=== PATIENT | female | born 1985 | race Caucasian/White ===

== ENCOUNTER → 2018-02-02 16:04 | Outpatient (CLI) | payer OTHER, SELFPAY ==
[2018-02-02 16:36] LABS: Basophils % 0.2 % (0.1-2.0); Eosinophils % 0.2 % (0.1-12.0); Hematocrit 40.7 % (37.0-47.0); Hemoglobin 13.8 g/dL (12.2-16.2); Lymphocytes # 2.4 K/mm3 (0.7-4.5); Mean Corpuscular Hemoglobin 32.7 pg (27.0-31.2); Mean Corpuscular Volume 96.3 fl (81-99); Mean Platelet Volume 7.9 fl (7.4-10.4); Monocytes # 0.3 K/mm3 (0.1-1.0); Monocytes % 3.6 % (1.7-9.3); Neutrophils # 6.3 K/mm3 (1.8-7.8); Platelet Count 231 K/mm3 (142-424); Red Blood Count 4.23 M/mm3 (4.20-5.40); Red Cell Distribution Width 12.2 % (11.5-17.5)
[2018-02-04 15:56] LABS: Hepatitis B Surface Antigen Negative (Negative); Hepatitis C Antibody <0.1 s/co ratio (0.0-0.9); Rapid Plasma Reagin Ab Titer Non Reactive (NonRea<1:1); Rubella Antibodies, IgG 5.74 index (Immune >0.99)
[2018-02-04 15:57] LABS: HIV Screen 4th Generation wRfx Non Reactive (Non Reactive)
== END ==
PROVIDERS: PCP Family Medicine; Visit Provider Obstetrics & Gynecology
DX: Z34.90 Encounter for supervision of normal pregnancy, unspecified, unspecified trimester (principal)
CPT/HCPCS: 36415; 85025; 86592; 86703; 86762; 86850; 87340; 87380; G0432

== ENCOUNTER → 2018-02-08 13:41 | Outpatient (CLI) | payer OTHER, SELFPAY ==
--- NOTE | 2018-02-08 13:43 | US_ITS ---
US OB transvaginal HISTORY: ITS.REASON: US OB- Dates ORDERING PHYSICIAN: Racheal Smith MD PATIENT AGE: 33 years FINDINGS: There is a single live intrauterine gestation present with an average ultrasound age of 12 weeks 5 days. Estimated due date is 08/18/2018. [place]-rump length 5.61 cm at 12 weeks 2 days, BPD 13 weeks 0 days, HC 13 weeks 0 days, abdominal circumference 12.5 days, FL 12 weeks 3 days. heart tones are present at 1 60 bpm. No gross anomalies apparent. This does not suffice for anatomy exam. Placenta forming anteriorly with probable Jose Maria Hopkins contraction noted. 1.5 cm right corpus luteum cyst IMPRESSION: Live intrauterine gestation at 12 weeks 5 days. Estimated due date 08/18/2018
== END ==
PROVIDERS: PCP Family Medicine; Visit Provider Obstetrics & Gynecology
DX: O26.841 Uterine size-date discrepancy, first trimester (principal)
CPT/HCPCS: 76830

== ENCOUNTER → 2018-03-31 12:42 | Outpatient (CLI) | payer OTHER, SELFPAY ==
--- NOTE | 2018-03-31 12:43 | US_ITS ---
US OB /maternal detail: INDICATION: ITS.REASON: US OB Complete ORDERING PHYSICIAN: Racheal Smith MD PATIENT AGE: 33 years TECHNIQUE: ultrasound transabdominal scanning. COMPARISON: No previous relevant studies. FINDINGS: Single viable intrauterine gestation. Cephalic position. Placenta: Anterior placenta grade 1. Accessory lobe is noted posteriorly and inferiorly There is average amount fluid. The cervix appears satisfactory. Closed and measuring 4 cm in length. Complete survey performed and was unremarkable on the submitted images as in PACS. No discrete anomalies identified on survey imaging by technologist. Active fetus. Three-vessel cord with satisfactory umbilical cord insertion. 4- chamber heart noted. Survey of brain & ventricles unremarkable. Face and neck survey unremarkable. Diaphragm and chest views unremarkable. Abdomen: Both kidneys noted and unremarkable. Stomach noted and satisfactory. Spine: Survey of the spine satisfactory with no anomalies identified nor imaged. Both arms and legs noted. Amniotic Fluid: Adequate. Maternal adnexa: No significant findings. Measurements: Average ultrasound age 20w0d. Gestational Age 20w0d. Estimated due date by ultrasound age 1008/18/2018. Estimated weight 314 grams. This is 35th percentile based on estimated due date. BPD = 20w2d OFD = 20w5d HC = 19w6d AC = 20w2d FL = 19w3d Heart Rate = 142 Cerebellum = 20w5d Humerus = 20w1d HC/AC is 1.15 (1.09-1.26). CI is 77% (70-86%). FL/BPD is 64%. FL/AC is 20%. IMPRESSION: Single live fetus is type presentation with average ultrasound age of 20 weeks 0 days. No obvious anomalies. All parameters correlate. Anterior placenta with accessory lobe posteriorly
== END ==
PROVIDERS: PCP Family Medicine; Visit Provider Obstetrics & Gynecology
DX: Z36.0 Encounter for antenatal screening for chromosomal anomalies (principal)
CPT/HCPCS: 76811

== ENCOUNTER → 2018-07-15 17:33 | Outpatient (REF) | payer OTHER, SELFPAY | LOC: LAB 17:33 | PROVIDERS: Visit Provider Nurse Practitioner Obstetrics & Gynecology | DX: Z34.90 Encounter for supervision of normal pregnancy, unspecified, unspecified trimester (principal) | CPT/HCPCS: 86403 ==

== ENCOUNTER 2018-08-04 05:29 | Inpatient (IN) ==
[2018-08-04 06:17] LABS: Basophils % 0.2 % (0.1-2.0); Eosinophils % 0.4 % (0.1-12.0); Hematocrit 35.2 % (37.0-47.0); Hemoglobin 11.9 g/dL (12.2-16.2); Lymphocytes # 2.3 K/mm3 (0.7-4.5); Lymphocytes % 24.4 K/mm3 (10-50); Mean Corpuscular HGB Conc 33.8 g/dL (31.8-35.4); Mean Corpuscular Hemoglobin 32.1 pg (27.0-31.2); Mean Corpuscular Volume 94.9 fl (81-99); Mean Platelet Volume 8.7 fl (7.4-10.4); Monocytes # 0.4 K/mm3 (0.1-1.0); Monocytes % 4.2 % (1.7-9.3); Neutrophils # 6.6 K/mm3 (1.8-7.8); Neutrophils % 70.9 % (37.0-80.0); Platelet Count 201 K/mm3 (142-424); Red Blood Count 3.71 M/mm3 (4.20-5.40); Red Cell Distribution Width 13.5 % (11.5-17.5); White Blood Count 9.4 K/mm3 (4.8-10.8)
[2018-08-04 06:30] LABS: Anion Gap 14.7 mEq/L (5-15); Calcium 8.3 mg/dL (8.5-10.1); Potassium 3.7 mmoL/L (3.5-5.1); Uric Acid 3.3 mg/dL (2.6-7.2)
[2018-08-04 06:48] LABS: Activated Partial Thrombo Time 26.4 seconds (23.6-34.0); INR 0.91 (0.9-1.1); Prothrombin Time 9.4 seconds (9.4-11.8)
[2018-08-04 07:28] LABS: Appearance,Urine CLEAR (Clear); Bilirubin,Urine Negative (Negative); Blood, Urine Negative (Negative); Color,Urine YELLOW (Yellow); Glucose,Urine (UA) Negative (Negative); Ketones,Urine Negative (Negative); Leukocyte Esterase,Urine 1+ (Negative); Microscopic, Urine URINE MICROSCOPIC (MICROSCOPIC); Protein,Urine Negative (Negative); Urobilinogen,Urine 0.2 EU/dl (0.2)
[2018-08-04 07:37] LABS: Bacteria,Urine 1+ /lpf
--- NOTE | 2018-08-04 08:08 | Progress Note ---
[facility] Anesthesia Checklist - Patient Identification Patient Identification: Arm Band, Verbal (Name & ) - Structural Data Admitted From: Inpatient Planned Operative Procedure/s: , btl Consent for Planned Operative Procedure(s) Verified: Yes Verified Documents: Surgical Consent, History and Physical - NPO Status Verified Time NPO: 00:00 - Additional verifications Patient : Yes Anesthesia Reactions: No Hx Blood Transfusions: No Blood Transfusion Reaction: No Cephalosporin Allergy: No Previous Colonoscopy: No - Cardiovascular Assessment Heart Sounds: S1 & S2 Pulse Strength: Baseline Pulse Rhythm: Regular Peripheral Edema: No - Airway Assessment C-Spine Mobility Assessed: Yes TMJ Mobility Assessed: Yes Dentition: Good Dentition - Neurological Assessment Level of Consciousness: Awake, Alert, Appropriate Hx Seizures: Yes Numbness or tingling in extremities: No - Anesthesia Plan Anesthesia Risk discussed: Yes Anesthesia Plan: Verified ASA Class: II Anesthesia Type: Spinal [facility] History I have reviewed the patient's past medical history: Yes Medical History: Reports:: Hypertension Denies:: Anxiety, Depression, Diabetes Mellitus Type 1, Hyperlipidemia, Migraine, MRSA Other Surgeries: Yes: Amputation: No Fractures: No - *Social History Smoking Status: Current every day smoker Tobacco Type: cigarettes Alcohol Intake: never Substance Use Type: denies use - Psychiatric History Pschychiatric History:: Denies:: Anxiety, Depression *Family Hx:: Cancer, Thyroid Disorder, Asthma Para: 2
--- NOTE | 2018-08-04 10:13 | Progress Note ---
[facility] Anesthesia Record Part I Intake, IV Amount: 1,900 Estimated blood loss (mL): 600 Urine output (mL): 525 Blood Products used (#): none Blood Pressure: 134/72 SaO2: 100 Pulse Rate: 72 Respiratory Rate: 18 Temperature: 98.3 F Patient is:: Awake, Stable Stable to PACU at:: 10:07
--- NOTE | 2018-08-04 10:14 | Progress Note ---
[facility] Anesthesia Record Part II Discharge Time: 10:37 Destination: Obstetric PACU nurse assessment reviewed?: Yes Patient Condition:: Good Anesthesia Complications:: None
--- NOTE | 2018-08-04 16:30 | Operative Note ---
Date of procedure: 08/04/18 Pre-op Diagnosis:: 1. IUP @ 38 wks 2. Previous CS 3. Gestational hypertension 4. Accessory lobe placenta 5. Tobacco abuse 6. Undesired fertility Post-op Diagnosis:: 1. IUP @ 38 wks 2. Previous CS 3. Gestational hypertension 4. Accessory lobe placenta 5. Tobacco abuse 6. Undesired fertility Procedure performed:: 1. Repeat low transverse c section 2. Bilateral salpingectomy Surgeon:: Racheal Smith MD Account Development Executive(s):: Bernardo Boone MD CHAIN MORTISER OPERATOR:: Aureliano Cameron Anesthesia: spinal Estimated blood loss (mL): 600 Operative findings:: grossly normal fallopian tubes and ovaries bilaterally. Uterus with thin lower segment and modertate bladder adhesions. Operative note:: The patient was taken to the OR and spinal administered without difficulty. She was prepped and draped in normal sterile fashion. A pfannenstiel skin incision was made with the scalpel and carried down to the fascia. The fascia was incised in the midline and sharply dissected off the rectus muscles. The muscles were in the midline and the peritoneum was entered sharply and extended bluntly. The Marcelo-O self retaining retractor was placed in the abdomen and the peritoneal adhesions between the bladder and lower uterine segment were sharply and bluntly dissected, creating a bladder flap. The lower uterine segment was extremely thin with a small visible window. The uterus was incised in the lower uterine segment in a transverse fashion and extended bluntly. Amniotomy was performed and clear fluid noted. The was delivered in controlled fashion, without complication or shoulder dystocia. The infant was vigorous at and handed to awaiting pediatricians for evaluation after cord clamped and cut. The placenta was manually extracted and noted to be intact. The uterus was repaired with 0-vicryl in a running/locked fashion. Both fallopian tubes were excised in totality, using the harmonic scalpel. All pedicles were hemostatic. The peritoneum was closed with 2-0 vicryl in running fashion. The subcutaneous fat was closed with 2-0 vicryl in interrupted fashion. The skin was closed with hector. The patient tolerated the procedure well. Sponge, lap, needle and instrument counts were correct x 2. She was taken to PACU in stable condition. Condition: stable Disposition: PACU Specimens:: bilateral fallopian tubes Complications:: none
[2018-08-05 06:09] LABS: Hematocrit 33.2 % (37.0-47.0)
--- NOTE | 2018-08-05 13:11 | Progress Note ---
Internal Medicine - PN: Subj *Date: 08/05/18 *Time: 13:08 Interval history: POD #1 Repeat LTCS with bilateral salpingectomy No complaints Ambulating, voiding without difficulty tolerating regular diet without N/V Pain control sufficient and lochia appropriate Exam Vital signs and Labs for Last 24 Hours: Temp Pulse Resp BP Pulse Ox 98.7 F 79 20 145/85 H 100 08/04/18 10:58 08/04/18 10:58 08/04/18 12:30 08/04/18 10:58 08/04/18 10:58 Laboratory Results - last 24 hr 08/04/18 09:00: Urine RBC None, Urine WBC None, Ur Squamous Epith Cells 3-5, Urine Bacteria Trace 08/05/18 05:45: Hgb 11.0 L, Hct 33.2 L I & O for Last 24 hours: Intake & Output 08/03/18 08/04/18 08/05/18 08/06/18 11:59 11:59 11:59 11:59 Intake Total 1900 / 1900 Output Total 525 / 525 Balance 1375 / 1375 Weight 190 lb Microbiology Reports for the Last 24 Hours: Microbiology 08/04/18 07:15 Urine,Clean Catch Urine Culture - Preliminary NO GROWTH AFTER 24 HOURS - Constitutional no acute distress - *Routine Respiratory Exam Absent: respiratory distress - *Routine Abdominal Exam Present: soft, tenderness (appropriate for postop condition). Absent: distended - *Routine Exam Comments: fundus firm at umbilicus - *Routine Skin Exam Present: wounds Comments: dressing dry/intact; no drainage from incision or evidence of cellulitis - *Routine Neurological Exam Present: alert, oriented X3. Absent: altered mental status - Routine Psychiatric Exam Absent: depressed, anxious Assessment and Plan (1) Gestational hypertension without significant proteinuria Current visit: No Status: Acute Category: Medical (2) Previous section Current visit: No Status: Chronic Category: Surgical Code(s): Z98.891 - History of uterine scar from previous surgery (3) Delivery by elective section Current visit: Yes Status: Acute Category: Medical Code(s): O82 - Encounter for delivery without indication (4) Unwanted fertility Current visit: Yes Status: Acute Category: Medical Code(s): Z30.09 - Encounter for other general counseling and advice on contraception (5) Status post tubal ligation Current visit: Yes Status: Acute Category: Medical Code(s): Z98.51 - Tubal ligation status (6) Tobacco smoking complicating Current visit: No Status: Acute Category: Medical Code(s): O99.330 - Smoking (tobacco) complicating , unspecified trimester (7) Anemia associated with acute blood loss Current visit: Yes Status: Acute Category: Medical Code(s): D62 - Acute posthemorrhagic anemia - Assessment and plan all Dx Assessment and Plan for all problems:: Routine postop/ care Continue to advance care as tolerated Possible discharge home tomorrow pending status/assessment Continue PNV with FeSO4 Tobacco cessation advised
--- NOTE | 2018-08-05 13:15 | Pharmacy Consult Notes ---
[facility] Pharmacy VTE Monitoring - Patient Demographics Admission date: 08/04/18 Report Date: 08/05/18 Time: 13:14 Allergies/Adverse Reactions: Patient Allergies From Penicillin G Sodium Allergy (Unknown, Uncoded 08/02/18 10:10) Penicillin Allergy (Unknown, Uncoded 08/02/18 10:10) Height: 1.57 m Weight: 86.183 kg Patient Problems: Current Active Problems Status post tubal ligation (Acute) Anemia associated with acute blood loss (Acute) Unwanted fertility (Acute) Delivery by elective section (Acute) - VTE Risk Labs: VTE Related Lab Results Hgb 11.0 g/dL (12.2-16.2) L 08/05/18 05:45 Hct 33.2 % (37.0-47.0) L 08/05/18 05:45 Plt Count 201 K/mm3 (142-424) 08/04/18 05:47 PT 9.4 seconds (9.4-11.8) 08/04/18 05:47 INR 0.91 (0.9-1.1) 08/04/18 05:47 APTT 26.4 seconds (23.6-34.0) 08/04/18 05:47 Fibrinogen 474 mg/dL (204-500) 08/04/18 05:47 BUN 4 mg/dL (7-18) L 08/04/18 05:47 Creatinine 0.44 mg/dL (0.55-1.02) L 08/04/18 05:47 Estimated Creat Clear 245 mL/min (0-300) 08/04/18 05:47 - Prophylaxis VTE Prophylaxis Ordered?: Yes Types of VTE Prophylaxis: IPCS Knee High Location of Applied Device: Bilateral Lower Extremeties
[2018-08-06 07:52] VITALS: BP 134/80
--- NOTE | 2018-08-06 15:17 | Discharge Summary ---
General - General Admission date:: 08/04/18 Discharge date: 08/06/18 HPI HPI: Elective repeat CS with bilateral salpingectomy performed at 38+ weeks due to GHTN /postop course uneventful Progressed to regular diet with normal voiding and ambulation BP stable throughout pp course discharged home on POD #2 Hospital Course Hospital Course: as documented within HPI Objective Vital signs: Temp Pulse Resp BP Pulse Ox 98.0 F 82 17 134/80 98 08/06/18 07:51 08/06/18 07:51 08/06/18 07:51 08/06/18 07:51 08/06/18 07:51 no acute distress - *Routine Respiratory Exam Absent: respiratory distress - *Routine Abdominal Exam Present: soft, tenderness (appropriate for postop status). Absent: distended, guarding - *Routine Extremities Exam Present: edema (1+) - *Routine Skin Exam Present: wounds (dry/intact without cellulitis or drainage) - *Routine Neurological Exam Present: alert, oriented X3 - Routine Psychiatric Exam Present: normal affect. Absent: depressed, anxious DS: Diagnosis - Discharge Diagnosis (1) Gestational hypertension without significant proteinuria Status: Acute (2) Previous section Status: Chronic (3) Delivery by elective section Status: Acute (4) Unwanted fertility Status: Acute (5) Status post tubal ligation Status: Acute (6) Tobacco smoking complicating Status: Acute (7) Anemia associated with acute blood loss Status: Acute Discharge Plan - Patient Discharge Instructions ACTIVITY: Limited activity, No heavy lifting (pelvic rest x 6 wks) DIET: regular diet Patient Instructions: How to Care for a Surgical Wound, H Post Discharge Instructions - Follow up Plan Disposition: Home, Self-Correction Medications: Home Medications Medication Instructions Recorded Confirmed Type vitamins with calcium 1 tab PO DAILY 02/02/18 08/05/18 History no.72-iron 29 mg-folic acid 1 mg tablet diphenhydramine 25 mg tablet 25 mg PO HSP PRN 05/05/18 08/05/18 History acetaminophen 500 mg tablet 500 mg PO DAILY PRN tab 07/22/18 08/05/18 History Prescriptions/Medication Reconciliation: New Ibuprofen [Motrin 400mg tablet] 400 mg PO Q4HP PRN #30 tab PRN Reason: Mild Pain Oxycodone HCl [OxyIR 5mg tablet] 5 mg PO Q4HP PRN #35 tab PRN Reason: Moderate Pain No Action vitamins with calcium no.72-iron 29 mg-folic acid 1 mg tablet 1 tab PO DAILY diphenhydramine 25 mg tablet 25 mg PO HSP PRN PRN Reason: Itching acetaminophen 500 mg tablet 500 mg PO DAILY PRN tab PRN Reason: Headache promethazine 12.5 mg tablet 12.5 mg PO Q6H PRN #30 tab PRN Reason: nausea and vomiting
== END 2018-08-06 15:35 | disposition home or self-care (01) ==
LOC: OB 05:29
PROVIDERS: ADMIT Obstetrics & Gynecology; ATTEND Obstetrics & Gynecology

== ENCOUNTER 2022-06-01 11:17 | Emergency (ER) | payer BC, SELFPAY ==
[2022-06-01 11:35] VITALS: BP 132/94; PULSE 100; RESP 18; TEMP 36.8; O2SAT 97; BMI 25.3
[2022-06-01 12:07] LABS: Apearance,Urine Cloudy (Clear); Color,Urine Red (Yellow)
[2022-06-01 12:08] LABS: Bilirubin,Urine 1+ (Negative); Blood, Urine 1+ (Negative); Glucose,Urine (UA) 100 (Negative); Ketones,Urine 1+ (Negative); Protein,Urine 1+ (Negative); Specific Gravity, Urine 1.005 (1.005-1.030); UTC Leukocyte Esterase,Urine 3+ (Negative); UTC Nitrate,Urine Positive (Negative); Urobilinogen,Urine 2 EU/dl (0.2)
--- NOTE | 2022-06-01 12:28 | HMH.EDUTC ---
[facility] Disposition Clinical Impression: UTI (urinary tract infection) Qualifiers: Urinary tract infection type: site unspecified Hematuria presence: with hematuria Qualified Code(s): N39.0 - Urinary tract infection, site not specified; R31.9 - Hematuria, unspecified Disposition: Home, Self-Care Condition on Discharge: Good Instructions: DI for Urinary Tract Infection (UTI), Early Surgery Relieves Sciatica Pain Faster, but Nonsurgical Treatment Is J, DI for Ear Pain-Adult Additional Instructions: *Increase fluids. Water not Soda or Tea *Start antibiotic immediately and be sure to take as ordered for the FULL length of time although you should start to see improvement over the next 48 hours *Pyridium as needed Remember this medication will turn your urine [place]. This is normal but it will stain what ever it gets on *You should not use Pyridium for more than 48 hours. If so , follow up with your primary physician to review urine culture and ensure that antibiotic is adequate for infection *Be SURE to follow up anytime for new or worsening symptoms with your family doctor. AND in 48 hours for urine culture results with your family doctor, if you do not have a doctor then you may call back to the [facility] for urine culture results and further treatment. We do recommend that you choose and establish care with a Primary Care Physician. AND follow up with them in 10-14 days to repeat UA to ensure infection is resolved and blood no longer present *Be sure to let your PCP know that we sent urine cultures from the [facility] so they can follow up to ensure that you area the on the correct antibiotic Call your doctor office and make appointment for 48 hours (2 days from today) to follow up and get the results of your urine culture and further treatment Prescriptions: Sulfamethoxazole/Trimethoprim [Bactrim DS tablet] 1 each PO BID 10 Days #20 tab Transmission Status: Pending to [id number] Phenazopyridine HCl [Pyridium 200mg Tablet] 200 pow PO TID #6 tab Transmission Status: Pending to [id number] Referrals: Keagan Madrigal [Primary Care Provider] - Medical Decision Making - Kris Inquiry Pt receiving controlled substance: No Kris was queried for this patient: No Vital Signs: 06/01/22 11:35 Temperature 98.3 F Temperature Source Oral Pulse Rate [Right Brachial] 100 H Respiratory Rate 18 Blood Pressure [Right Arm] 132/94 H Blood Pressure Mean [Right Arm] 106 Blood Pressure Source [Right Arm] Automatic Cuff Blood Pressure Position [Right Arm] Sitting 02 Sat by Pulse Oximetry 97 Oxygen Delivery Method Room Air - Lab Data Lab results reviewed: Yes: I reviewed the patient's lab results. Lab Results 06/01/22 12:07: Urine Color Red, Urine Appearance Cloudy, Urine pH 5.0, Ur Specific [place] 1.005, Urine Protein 1+, Urine Glucose (UA) 100, Urine Ketones 1+, Urine Blood 1+, Urine Nitrate Positive A, Urine Bilirubin 1+ A, Urine Urobilinogen 2, Ur Leukocyte Esterase 3+ A Orders (Tests/Meds): ORDERS Category Date Time Status Urine Culture Stat Micro 06/01/22 12:36 Received Medical Decision Narrative: Patient states that she took azo to help with burning [facility] HPI - General Stated complaint: left ear pain Time Seen by Provider: 06/01/22 12:28 Mode of Arrival: Ambulatory Source of Information: Patient Limitations: No Limitations Description of Symptoms (Recalled from Triage Doc. by RN): PATIENT C/O FREQUENT URINATION SINCE THURSDAY, SINUS PAIN AND LEFT EAR PAIN SINCE THIS MORNING HEENT Symptoms (Recalled from RN notes): Yes Resp Symptoms (Recalled from RN notes): No Skin Symptoms (Recalled from RN notes): No MS Symptoms (Recalled from RN notes): No Functional Status (Recalled from RN notes): WNL - History of Present Illness Provider Complaint: Patient states that she has been having pain her left ear and left side of sinuses for a couple days worse today States that also she has been having burning with
[2022-06-01 12:49] VITALS: BP 132/94; PULSE 100; RESP 18; TEMP 36.8; O2SAT 97
== END 2022-06-01 12:49 | disposition home or self-care (01) ==
PROVIDERS: Emergency Provider Nurse Practitioner; PCP Family Medicine
DX: N39.0 Urinary tract infection, site not specified (principal); R31.9 Hematuria, unspecified; H92.02 Otalgia, left ear; F17.210 Nicotine dependence, cigarettes, uncomplicated
CPT/HCPCS: 81003; 87086; 87088; 87186; 99212; G0463

== ENCOUNTER 2023-11-04 10:35 | Emergency (ER) | payer OTHER, SELFPAY ==
[2023-11-04] VITALS (11 sets, daily range): BP systolic 120–160; BP diastolic 72–96; PULSE 78–96; RESP 10–20; TEMP 36.7–36.8; O2SAT 96–98; BMI 33.8
--- NOTE | 2023-11-04 10:34 | ECG_ITS ---
APPROVED REPORT Exam: Resting ECG HR:119 bpm ECG Measurements Heart Rate 119 AXES RI 160 P 60 QRSd 92 QRS 46 QT 429 T 21 QTc [address] DEVIATION AND MODERATE T-WAVE ABNORMALITY, CONSIDER ANTEROLATERAL ISCHEMIA [-0.1+ mV T-WAVE IN V3-V6] ST DEVIATION AND MODERATE T-WAVE ABNORMALITY, CONSIDER INFERIOR ISCHEMIA [-0.1+ mV T-WAVE IN II/aVF] ABNORMAL ECG UNCONFIRMED REPORT Electronically signed by : Aureliano Castillo MD 11/05/2023 20:12:56
--- NOTE | 2023-11-04 11:00 | XR_ITS ---
FINAL REPORT CLINICAL HISTORY: cp FINDINGS: SINGLE-VIEW CHEST The heart size is normal. The mediastinum is normal. The lungs are clear. There is no pneumothorax. IMPRESSION: No acute cardiopulmonary process. Reviewed, Interpreted and Dictated by Eron Moore III, MD Transcribed by Emily Espinal Authenticated and . [facility]
--- NOTE | 2023-11-04 11:02 | ED_ITS ---
Discharge Plan Disposition Patient Disposition: Home, Self-Care Chief Complaint: Chest Pain Prescriptions Prescriptions: No Action phenazopyridine 200 MG tablet 200 pow PO TID Qty: 6 0RF sulfamethoxazole-trimethoprim 1 EACH tablet 1 each PO BID 10 Days Qty: 20 0RF Referrals Follow up/Referrals: Provider,MD Kenyon [Primary Care Provider] - See instructions Quinn Saldivar MD [Staff Physician] - See instructions Activity Restrictions/Add. Instructions Additional Instructions/Restrictions: Call your family doctor to establish care for this visit to the emergency department and schedule follow-up within 48 hours to ensure improvement. If you have any worsening of your condition or any other concerning signs or symptoms, return to the emergency department or your primary care doctor for further evaluation. Cardiology follow-up listed here Clinical Impressions Clinical Impression: Chest pain Discharge ED Provider: Kade Giang [facility] General Chief Complaint: Chest Pain Stated Complaint: Chest Pain Time Seen by Provider: 11/04/23 10:38 History of Present Illness HPI narrative: 38-year-old female presenting with chest pain and uneasy feeling states that started having this feeling last night. Started feeling lightheaded at home a fter work. Talk to her family doctor today because she was having chest pain and left upper extremity heaviness yesterday and in the past told her to come to the emergency department for further evaluation. Patient states that this episode was associated with nausea, vomiting, diaphoresis, but no evidence of shortness of breath. Not currently any symptoms, but they are intermittent. No lower extremity edema. No family history of sudden cardiac . Related Data Previous Rx's Medication Instructions Recorded phenazopyridine 200 mg tablet 200 pow PO TID #6 tabs 06/01/22 sulfamethoxazole 800 1 each PO BID 10 days #20 tabs 06/01/22 mg-trimethoprim 160 mg tablet Allergies Allergy/AdvReac Type Severity Reaction Status Date / Time Penicillins Allergy Verified 06/01/22 11:52 [facility] Disclaimer: The information contained in this section may have been updated after the patient was seen, as this information can be updated by other users. Social History Smoking Status: Former smoker tobacco type: cigarettes packs per day: 1 alcohol intake: never substance use type: denies use current occupational status: other Travel in the last 8 weeks: None ROS Obtained: Yes All systems reviewed & no additional complaints except as documented Physical Exam General General appearance: alert Neck Neck exam: Present trachea midline Chest Chest inspection: Present normal inspection and symmetric chest wall rise Respiratory Respiratory exam: Present normal lung sounds bilaterally; Absent respiratory distress, wheezes, stridor, accessory muscle use or prolonged expiratory phase Cardiovascular Cardiovascular exam: Present regular rate and normal rhythm Extremities Exam Extremities exam: Absent edema Neurological Exam Neurological exam: Present alert, oriented X3 and CN II-XII intact Skin Skin exam: Present warm and dry; Absent cyanosis, diaphoresis or pallor HEART Score HEART Score HEART Score assessment performed?: Yes History (anamnesis): Moderately suspicious ECG: Normal Age: <45 years Risk factors: 1-2 risk factors Troponin: </= normal limit HEART Score: 2 Critical Care Critical Care Time Critical Care Time: No Medical Decision Making Medical Records Medical records reviewed: Yes I reviewed the patient's medical records. Kris Inquiry Pt receiving controlled substance: No Kris was queried for this patient: No Vital Signs Vital Signs: 11/04/23 10:35 11/04/23 11:19 11/04/23 11:30 Temperature 98.3 F Temperature Source Oral Pulse Rate 94 H 86 Pulse Rate [Left] 93 H Respiratory Rate 16 15 10 L Blood Pressure 137/87 151/92 H Blood Pressure [Right Arm] 160/96 H Blood Pressure Mean Blood Pressure Mean [Right Arm] 117 Blood Pressure Source [Right Arm] Automatic Cuff 02 Sat by Pulse Oximetry 98 96 98 Oxygen Delivery Method Room Air 11/04/23 12:00 11/04/23 12:31 11/04/23 13:00 Temperature Temperature Source Pulse Rate 95 H 86 80 Pulse Rate [Left] Respiratory Rate 14 14 12 Blood Pressure 159/86 H 134/78 129/84 Blood Pressure [Right Arm] Blood Pressure Mean 96 93 Blood Pressure Mean [Right Arm] Blood Pressure Source [Right Arm] 02 Sat by Pulse Oximetry 97 97 96 Oxygen Delivery Method 11/04/23 13:31 11/04/23 14:00 11/04/23 14:30 Temperature Temperature Source Pulse Rate 85 Pulse Rate [Left] Respiratory Rate 16 Blood Pressure 129/72 122/78 127/90 Blood Pressure [Right Arm] Blood Pressure Mean 90 93 102 Blood Pressure Mean [Right Arm] Blood Pressure Source [Right Arm] 02 Sat by Pulse Oximetry 97 Oxygen Delivery Method 11/04/23 15:00 Temperature Temperature Source Pulse Rate 78 Pulse Rate [Left] Respiratory Rate 14 Blood Pressure 120/83 Blood Pressure [Right Arm] Blood Pressure Mean Blood Pressure Mean [Right Arm] Blood Pressure Source [Right Arm] 02 Sat by Pulse Oximetry 98 Oxygen Delivery Method Lab Data Labs: Lab Results 11/04/23 11:09: WBC 6.6, RBC 4.23, Hgb 13.3, Hct 39.2, MCV 92.5, MCH 31.5 H, MCHC 34.0, RDW 13.1, Plt Count 239, MPV 8.2, Neut % (Auto) 66.6, Lymph % (Auto) 28.8, [place] % (Auto) 3.5, Eos % (Auto) 0.6, Baso % (Auto) 0.6, Neut # (Auto) 4.4, Lymph # (Auto) 1.9, [place] # (Auto) 0.2, Eos # (Auto) 0.0, Baso # (Auto) 0.0, D- Dimer 0.41, Sodium 140, Potassium 3.5, Chloride 106, Carbon Dioxide 25, Anion Gap 12.5, BUN 9, Creatinine 0.60, Estimated Creat Clear 167, Estimated GFR 111, Est GFR ( Amer) 135, Glucose 107 H, Calcium 8.9, Total Bilirubin 0.6, AST 31, ALT 21, Alkaline Phosphatase 82, Troponin I < 0.01, NT-Pro-B Natriuret Pep 73.6, Total Protein 7.1, Albumin 4.2, Globulin 2.9, Albumin/Globulin Ratio 1.4, HCG, Quant < 2 11/04/23 14:25: Troponin I < 0.01 11/04/23 11:09 11/04/23 11:09 Response Orders (Tests/Meds): ED MEDICATIONS Discontinued Medications Generic Name Dose Route Start Last Admin Trade Name Freq PRN Reason Stop Dose Admin Aspirin 324 mg 11/04/23 11:00 11/04/23 11:16 Aspirin 81mg Chewable Tablet PO 11/04/23 11:01 324 mg ONCE ONE Administration ORDERS Category Date Time Status XR chest portable Stat Exams 11/04/23 11:00 Completed Brain Natriuretic Peptide Stat Lab 11/04/23 11:09 Completed Complete Blood Count Auto Diff Stat Lab 11/04/23 11:09 Completed Comprehensive Metabolic Panel Stat Lab 11/04/23 11:09 Completed D-Dimer Stat Lab 11/04/23 11:09 Completed HCG,Quantitative Stat Lab 11/04/23 11:09 Completed Troponin I Q3H Lab 11/04/23 14:25 Completed Troponin I Q3H Lab 11/04/23 17:15 Ordered Troponin I Stat Lab 11/04/23 11:09 Completed ECG initial [place] Routine Y 11/04/23 10:34 Completed MDM Narrative Medical Decision Narrative: 38-year-old female presenting with chest pain and uneasy feeling states that started having this feeling last night. Started feeling lightheaded at home after work. Talk to her family doctor today because she was having chest pain and left upper extremity heaviness yesterday and in the past told her to come to the emergency department for further evaluation. Patient states that this episode was associated with nausea, vomiting, diaphoresis, but no evidence of shortness of breath. Not currently any symptoms, but they are intermittent. No lower extremity edema. No family history of sudden cardiac . History was obtained via conversation with patient and family. On arrival, patient hemodynamically stable, alert, oriented x4, appropriate, GCS 15, moving all extremities spontaneously, pupils equal and reactive to light. Full physical exam performed and significant for well-appearing female no acute distress. Lungs clear to auscultation, no evidence of extracardiac sounds. Pulses equal symmetric. Neurologically intact. Differential includes ACS, VT, pneumothorax, PE, dissection, pneumothorax, aortic aneurysm, pneumonia, bronchitis, among others. Patient was given aspirin for symptomatic management and correction of underlying abnormalities. Workup independently interpreted and significant for negative delta troponin. Negative D-dimer. See radiology read for full review of final results. Independent interpretation of EKG shows sinus tachycardia 119 bpm. T wave inversions in 2, 3, aVF as well as V3 through V6. No reciprocal change. RI, QRS, QT intervals within normal limits On reevaluation, patient resting comfortably bed. Given patient presentation, workup, history, this most likely represents chest pain, possibly angina. Patient was given cardiology follow-up. Because patient at baseline without signs or symptoms of clinical decompensation, deemed appropriate for discharge. Results were relayed to patient who voiced understanding and were agreeable to outpatient management and follow up. At the time of discharge the patient was hemodynamically stable, tolerating PO, and mobilizing appropriately.
[2023-11-04] MEDS: ASPIRIN 81MG CHEWABLE TABLET 324 MG PO (11:16)
[2023-11-04 11:23] LABS: Basophils % 0.6 % (0.1-2.0); Eosinophils % 0.6 % (0.1-12.0); Hematocrit 39.2 % (37.0-47.0); Hemoglobin 13.3 g/dL (12.2-16.2); Lymphocytes # 1.9 K/mm3 (0.7-4.5); Lymphocytes % 28.8 % (10-50); Mean Corpuscular Hemoglobin 31.5 pg (27.0-31.2); Mean Corpuscular Volume 92.5 fl (81-99); Mean Platelet Volume 8.2 fl (7.4-10.4); Monocytes # 0.2 K/mm3 (0.1-1.0); Monocytes % 3.5 % (1.7-9.3); Neutrophils # 4.4 K/mm3 (1.8-7.8); Neutrophils % 66.6 % (37.0-80.0); Platelet Count 239 K/mm3 (142-424); Red Blood Count 4.23 M/mm3 (4.20-5.40); Red Cell Distribution Width 13.1 % (11.5-17.5); White Blood Count 6.6 K/mm3 (4.8-10.8)
[2023-11-04 11:27] LABS: Chloride 106 mmol/L (98-107); Sodium 140 mmol/L (136-145)
[2023-11-04 11:28] LABS: Potassium 3.5 mmoL/L (3.5-5.1)
[2023-11-04 11:30] LABS: Alanine Aminotransferase 21 U/L (12-78); Albumin Level 4.2 g/dl (3.5-5.0); Albumin/Globulin Ratio 1.4 (1.1-1.8); Alkaline Phosphatase 82 U/L (38-126); Anion Gap 12.5 mEq/L (5-15); Aspartate Amino Transferase 31 U/L (14-36); Bilirubin,Total 0.6 mg/dl (0.2-1.3); Blood Urea Nitrogen 9 mg/dl (7-17); Carbon Dioxide 25 mmol/L (22.0-30.0); Creatinine Clearance Estimated 167 mL/min (50-200); Estimated Glomerular Filt Rate 111 ml/min (>60); GFR (African American) 135 ML/MIN (>60); Globulin 2.9 g/dL (1.3-3.2); Total Protein,Serum 7.1 g/dl (6.3-8.2)
[2023-11-04 11:31] LABS: Calcium 8.9 mg/dl (8.4-10.2); Glucose 107 mg/dl (74-100)
[2023-11-04 11:41] LABS: NT Pro Brain Natriuretic Pep. 73.6 pg/mL (0-125)
[2023-11-04 11:46] LABS: Troponin I < 0.01 ng/ml (0.00-0.034)
[2023-11-04 11:50] LABS: HCG,Quantitative < 2 mIU/ml (0-5.42)
[2023-11-04 13:14] LABS: D-Dimer 0.41 ug/mL (0.0-0.5)
--- NOTE | 2023-11-04 14:26 | PC.NURSE ---
DR HDZ AT BEDSIDE TO UPDATE PT
[2023-11-04 15:12] LABS: Troponin I < 0.01 ng/ml (0.00-0.034)
== END 2023-11-04 15:30 | disposition home or self-care (01) ==
PROVIDERS: Emergency Provider Emergency Medicine
DX: R07.9 Chest pain, unspecified (principal); R42 Dizziness and giddiness; R11.2 Nausea with vomiting, unspecified; R61 Generalized hyperhidrosis; Z87.891 Personal history of nicotine dependence; R00.0 Tachycardia, unspecified
CPT/HCPCS: 36415; 71045; 80053; 83880; 84484; 84702; 85025; 85378; 93005; 99285

== ENCOUNTER 2024-09-01 09:06 | Emergency (ER) | payer OTHER, SELFPAY ==
[2024-09-01 09:07] VITALS: BP 151/94; PULSE 87; RESP 20; TEMP 37.1; O2SAT 97; BMI 33.8
--- NOTE | 2024-09-01 09:44 | ED_ITS ---
Discharge Plan Disposition Patient Disposition: Still a Patient Condition: Fair Prescriptions Prescriptions: No Action phenazopyridine 200 MG tablet 200 pow PO TID Qty: 6 0RF sulfamethoxazole-trimethoprim 1 EACH tablet 1 each PO BID 10 Days Qty: 20 0RF Referrals Follow up/Referrals: Provider,Referral, [Primary Care Provider] - See instructions Clinical Impressions Clinical Impression: Low back pain, Microscopic hematuria Print Language Print Language: Setswana Discharge ED Provider: Jael Garduno [facility] HPI General Stated complaint: Lower/mid back pain Mode of Arrival: Ambulatory Source of Information: Patient Limitations: No Limitations Time Seen by Provider: 09/01/24 09:44 Description of Symptoms (Recalled from Triage Doc. by RN): left side back pain,vomiting HEENT Symptoms (Recalled from RN notes): No Resp Symptoms (Recalled from RN notes): No Skin Symptoms (Recalled from RN notes): No MS Symptoms (Recalled from RN notes): Yes Functional Status (Recalled from RN notes): na History of Present Illness Provider Complaint: She states that since last night she has had left lower back and left flank pain that radiates around to the front of her abdomen and her groin. She denies any known injury. She denies any history of kidney stones and other urinary symptoms. She denies fever/chills/malaise. She denies that the pain radiates down her leg. Related Data Previous Rx's ?Medication ?Instructions ?Recorded phenazopyridine 200 mg tablet 200 pow PO TID #6 tabs 06/01/22 sulfamethoxazole 800 1 each PO BID 10 days #20 tabs 06/01/22 mg-trimethoprim 160 mg tablet Allergies Allergy/AdvReac Type Severity Reaction Status Date / Time Penicillins Allergy Verified 06/01/22 11:52 Worker's Comp Is this a Worker's Comp case?: No Is this an [facility] Worker's Comp?: No Is this a [place] Worker's Comp?: No [facility] Disclaimer: The information contained in this section may have been updated after the patient was seen, as this information can be updated by other users. Social History Smoking Status: Former smoker tobacco type: cigarettes packs per day: 1 alcohol intake: never substance use type: denies use current occupational status: other Travel in the last 8 weeks: None ROS Obtained: Yes All systems reviewed & no additional complaints except as documented Constitutional Constitutional: Denies chills and Denies fever(s) Eyes Eyes: Denies eye discharge ENT Ears, Nose, Mouth, and Throat: Denies dizziness, Denies otalgia and Denies sore throat Cardiovascular Cardiovascular: Denies chest pain Respiratory Respiratory: Denies shortness of breath, Denies chest congestion, Denies cough, Denies stridor and Denies wheezing Gastrointestinal Gastrointestingal: Reports as per HPI; Denies constipation, cramping, diarrhea, nausea or vomiting Genitourinary Female Genitourinary: Reports as per HPI Musculoskeletal Musculoskeletal: Reports as per HPI, Denies abnormal gait and Reports back pain Integumentary/Breasts Skin/Breast: Denies redness, Denies rash and Denies wounds Neurologic Neurologic: Denies abnormal gait, Denies dizziness and Denies paresthesias Allergic/Immunologic Allergic/Immunologic: Denies wheezing Physical Exam General General appearance: alert and in no apparent distress Head Head exam: atraumatic, normocephalic and normal inspection Eye Eye exam: Present normal appearance, PERRL and EOMI ENT ENT exam: Present normal exam, normal oropharynx, mucous membranes moist, TM's normal bilaterally and normal external ear exam Neck Neck exam: Present normal inspection, full ROM and trachea midline; Absent meningismus or lymphadenopathy Chest Chest inspection: Present normal inspection and symmetric chest wall rise; Absent tenderness Respiratory Respiratory exam: Present normal lung sounds bilaterally; Absent respiratory distress Cardiovascular Cardiovascular exam: Present regular rate and normal rhythm; Absent JVD Abdominal Exam Abdominal exam: Present soft and normal bowel sounds; Absent distention, tenderness or guarding Extremities Exam Extremities exam: Present normal inspection, full ROM and normal capillary refill; Absent calf tenderness Back Exam Back exam: Present full ROM, tenderness and CVA tenderness (R) Neurological Exam Neurological exam: Present alert, oriented X3, CN II-XII intact, normal gait and reflexes normal; Absent motor sensory deficit Psychiatric Psychiatric exam: Present normal affect and normal mood Skin Skin exam: Present warm, dry, intact and normal color Lymphatic Lymphatic Findings: no adenopathy Medical Decision Making Medical Records Medical records reviewed: No I reviewed the patient's medical records. Screening: Per USPSTF and CDC recommendations, given the prevalence of disease in our region, it is our hospital?s policy to screen for HIV and viral Hepatitis for all patients aged 18 and over and those with ongoing risk factors. Kris Inquiry Pt receiving controlled substance: No Vital Signs: 09/01/24 09:07 Temperature 98.8 F Temperature Source Oral Pulse Rate [Right] 87 Respiratory Rate 20 Blood Pressure [Right Arm] 151/94 H Blood Pressure Mean [Right Arm] 113 02 Sat by Pulse Oximetry 97 Lab Data Lab results reviewed: Yes I reviewed the patient's lab results. hematuria noted Medical Decision Narrative: She was transferred to the er due to her symptoms with no clear etiology.
[2024-09-01 10:08] LABS: Apearance,Urine Clear (Clear); Color,Urine Yellow (Yellow)
[2024-09-01 10:09] LABS: Bilirubin,Urine Negative (Negative); Blood, Urine 3+ (Negative); Glucose,Urine (UA) Negative (Negative); Ketones,Urine 15 (Negative); PH,Urine 5.5 (5.0-8.5); Protein,Urine Negative (Negative); UTC Leukocyte Esterase,Urine Negative (Negative); UTC Nitrate,Urine Negative (Negative); Urobilinogen,Urine 0.2 EU/dl (0.2)
[2024-09-01 10:42] VITALS: BP 161/112; PULSE 89; RESP 16; TEMP 37.1; O2SAT 98; BMI 33.8
--- NOTE | 2024-09-01 10:45 | PC.NURSE ---
Pt brought over from [facility] with suspected kidney stone. Loyda Dale RN placed IV to [facility] and sent blood & urine sample to the Lab.
--- NOTE | 2024-09-01 10:53 | CT_ITS ---
FINAL REPORT TECHNIQUE: Axial images through the abdomen and pelvis were performed without contrast. This study was performed with techniques to keep radiation doses as low as reasonably achievable, (ALARA). Individualized dose reduction techniques using automated exposure control or adjustment of mA and/or kV according to the patient's size were employed. CLINICAL HISTORY: LT FLANK PAIN FINDINGS: ABDOMEN: The lung bases are clear. The heart size is normal. Limited images of the liver are unremarkable. The spleen is normal. No adrenal mass is identified. The aorta is normal in caliber. There is no significant free fluid or adenopathy. There is no nephrolithiasis. There is no hydronephrosis. PELVIS: The appendix is normal. The urinary bladder is unremarkable. There is no significant free fluid or adenopathy. IMPRESSION: No hydronephrosis or nephrolithiasis. Reviewed, Interpreted and Dictated by Eron Moore III, MD Transcribed by Emily Espinal Authenticated and [facility]
[2024-09-01 10:54] LABS: Albumin Level 4.7 g/dl (3.5-5.0); Chloride 107 mmol/L (98-107); Potassium 3.8 mmoL/L (3.5-5.1); Sodium 141 mmol/L (136-145)
--- NOTE | 2024-09-01 10:54 | HMH.EDGENADL ---
Discharge Plan Disposition Patient Disposition: Home, Self-Care Condition: Good Prescriptions Prescriptions: New ketorolac 10 mg tablet 10 mg PO Q8H PRN (Reason: pain) 3 Days Qty: 12 0RF cefdinir 300 mg capsule 300 mg PO BID 10 Days Qty: 20 0RF ondansetron 4 mg tablet,disintegrating 4 mg PO Q8H PRN (Reason: nausea and vomiting) 4 Days Qty: 12 0RF No Action phenazopyridine 200 MG tablet 200 pow PO TID Qty: 6 0RF sulfamethoxazole-trimethoprim 1 EACH tablet 1 each PO BID 10 Days Qty: 20 0RF Referrals Follow up/Referrals: Provider,Referral, MD [Referring] - See instructions Activity Restrictions/Add. Instructions Additional Instructions/Restrictions: You were evaluated in the emergency department today. At this time, you have blood in your urine. Please follow-up closely with primary care provider for reassessment. At this time, workup is reassuring with the exception of the blood in your urine. We are prescribing you an antibiotic just in case this could be kidney infection. Please follow-up very closely with primary care provider over the next 48 hours. Return to the emergency department for new or worsening symptoms. In addition to the medications prescribed to you, you may also take Tylenol reported 6 hours at home as needed for pain. Clinical Impressions Clinical Impression: Hematuria, Acute left flank pain Stand Alone Forms Stand Alone Forms: Work/School Release Instructions Patient Instructions: DI for Kidney Infection, DI for Kidney Stones, DI for Acute Pain -- Adult Print Language Print Language: [place] Discharge ED Provider: Jael Garduno General Adult HPI General Chief complaint: PAIN Stated complaint: Lower/mid back pain Time Seen by Provider: 09/01/24 09:44 Mode of Arrival: Ambulatory Source of Information: Patient Limitations: No Limitations Description of Symptoms (Recalled from ER Triage Doc. by RN): left side back pain,vomiting History of Present Illness HPI narrative: This patient is a 39-year-old female with a history of prior and tubal ligation presenting to the emergency department for evaluation with concern for left-sided back/flank pain radiating around to her abdomen, nausea, and vomiting. This started 2 days ago. She notes she thought maybe it could be a kidney infection or UTI or even a pulled muscle, but symptoms are not getting any better. She went to [facility] who noted blood in her urine and sent her over here for further evaluation with concern for possible kidney stone. I had an interactive discussion with the provider prior to her being sent over here. Patient denies any fevers, chills, changes in bowel movements, dysuria, or other concerns. Related Data Previous Rx's ?Medication ?Instructions ?Recorded phenazopyridine 200 mg tablet 200 pow PO TID #6 tabs 06/01/22 sulfamethoxazole 800 1 each PO BID 10 days #20 tabs 06/01/22 mg-trimethoprim 160 mg tablet cefdinir 300 mg capsule 300 mg PO BID 10 days #20 caps 09/01/24 ketorolac 10 mg tablet 10 mg PO Q8H PRN pain 3 days #12 09/01/24 tabs ondansetron 4 mg disintegrating 4 mg PO Q8H PRN nausea and 09/01/24 tablet vomiting 4 days #12 tabs Allergies Allergy/AdvReac Type Severity Reaction Status Date / Time Penicillins Allergy Verified 06/01/22 11:52 [facility] Disclaimer: The information contained in this section may have been updated after the patient was seen, as this information can be updated by other users. Social History Smoking Status: Never smoker alcohol intake: never substance use type: denies use current occupational status: other Travel in the last 8 weeks: None Other Medical History Have you received the Flu Vaccine for this season: No Have you received the Pneumonia Vaccine: No ROS Obtained: Yes All systems reviewed & no additional complaints except as documented Physical Exam General General appearance: alert and in no apparent distress Comment: Uncomfortable appearing Head Head exam: atraumatic and normocephalic Eye Eye exam: Present normal appearance, PERRL and EOMI ENT ENT exam: Present normal exam, normal oropharynx, mucous membranes moist and normal external ear exam Neck Neck exam: Present normal inspection, full ROM and trachea midline; Absent tenderness Chest Chest inspection: Present normal inspection and symmetric chest wall rise; Absent tenderness Respiratory Respiratory exam: Present normal lung sounds bilaterally; Absent respiratory distress, wheezes, stridor or accessory muscle use Cardiovascular Cardiovascular exam: Present regular rate and normal rhythm Abdominal Exam Abdominal exam: Present soft; Absent distention, tenderness or guarding Extremities Exam Extremities exam: Present normal inspection, full ROM and normal capillary refill; Absent tenderness or edema Back Exam Back exam: Present full ROM and CVA tenderness (L) Neurological Exam Neurological exam: Present alert, oriented X3, CN II-XII intact and normal gait; Absent motor sensory deficit Psychiatric Psychiatric exam: Present normal affect and normal mood Skin Skin exam: Present warm and dry Medical Decision Making Medical Records Medical records reviewed: Yes I reviewed the patient's medical records. Screening: Per USPSTF and CDC recommendations, given the prevalence of disease in our region, it is our hospital?s policy to screen for HIV and viral Hepatitis for all patients aged 18 and over and those with ongoing risk factors. Kris Inquiry Pt receiving controlled substance: No Vital Signs: 09/01/24 09:07 09/01/24 10:42 09/01/24 11:00 Temperature 98.8 F 98.8 F Temperature Source Oral Oral Pulse Rate 83 Pulse Rate [Right] 87 89 Respiratory Rate 20 16 Blood Pressure 154/99 H Blood Pressure [Right Arm] 151/94 H 161/112 H Blood Pressure Mean 117 Blood Pressure Mean [Right Arm] 113 128 Blood Pressure Source Blood Pressure Source [Right Arm] Automatic Cuff 02 Sat by Pulse Oximetry 97 98 95 Oxygen Delivery Method Room Air Room Air 09/01/24 11:30 09/01/24 13:27 Temperature 98.8 F Temperature Source Oral Pulse Rate 74 68 Pulse Rate [Right] Respiratory Rate 18 Blood Pressure 146/96 H 126/78 Blood Pressure [Right Arm] Blood Pressure Mean 114 Blood Pressure Mean [Right Arm] Blood Pressure Source Automatic Cuff Blood Pressure Source [Right Arm] 02 Sat by Pulse Oximetry 98 Oxygen Delivery Method Room Air Room Air Lab Data Lab results reviewed: Yes I reviewed the patient's lab results. Lab Results 09/01/24 09:31: Urine Color Yellow, Urine Appearance Clear, Urine pH 6.0, Ur Specific Novelty >= 1.030, Urine Protein Negative, Urine Glucose (UA) Negative, Urine Ketones Trace, Urine Blood 2+ A, Urine Nitrate Negative, Urine Bilirubin 1+ A, Urine Urobilinogen 0.2, Ur Leukocyte Esterase Negative, Urine RBC None, Urine WBC None, Ur Squamous Epith Cells 5-10, Urine Bacteria None 09/01/24 10:07: Urine Color Yellow, Urine Appearance Clear, Urine pH 5.5, Ur Specific Novelty 1.030, Urine Protein Negative, Urine Glucose (UA) Negative, Urine Ketones 15, Urine Blood 3+, Urine Nitrate Negative, Urine Bilirubin Negative, Urine Urobilinogen 0.2, Ur Leukocyte Esterase Negative 09/01/24 10:40: HIV 1&2 Antibody Rapid Nonreactive 09/01/24 10:42: Sodium 141, Potassium 3.8, Chloride 107, Carbon Dioxide 24, Anion Gap 13.8, BUN 8, Creatinine 0.50 L, Estimated Creat Clear 198, Estimated GFR 137, Est GFR ( Amer) 165, Glucose 114 H, Calcium 9.2, Total Bilirubin 0.7, AST 23, ALT 16, Alkaline Phosphatase 89, Total Protein 8.2, Albumin 4.7, Globulin 3.5 H, Albumin/Globulin Ratio 1.3 09/01/24 11:48: WBC 7.6, RBC 4.53, Hgb 14.2, Hct 40.8, MCV 89.9, MCH 31.3 H, MCHC 34.8, RDW 13.1, Plt Count 247, MPV 7.7, Neut % (Auto) 65.6, Lymph % (Auto) 27.6, [place] % (Auto) 4.0, Eos % (Auto) 0.8, Baso % (Auto) 2.0, Neut # (Auto) 5.0, Lymph # (Auto) 2.1, [place] # (Auto) 0.3, Eos # (Auto) 0.1, Baso # (Auto) 0.2 09/01/24 11:48 09/01/24 10:42 Orders (Tests/Meds): ED MEDICATIONS Discontinued Medications Generic Name Dose Route Start Last Admin Trade Name Romel PRN Reason Stop Dose Admin Acetaminophen 1,000 mg 09/01/24 10:53 09/01/24 10:57 Acetaminophen 500mg Tab PO 09/01/24 10:54 1,000 mg ONCE ONE Administration Cefdinir 300 mg 09/01/24 13:19 09/01/24 13:22 Cefdinir 300mg Capsule PO 09/01/24 13:20 300 mg ONCE ONE Administration Ketorolac Tromethamine 15 mg 09/01/24 10:53 09/01/24 10:57 Ketorolac 30mg/Ml Vial IV 09/01/24 10:54 15 mg ONCE ONE Administration Ketorolac Tromethamine 15 mg 09/01/24 13:19 09/01/24 13:22 Ketorolac 30mg/Ml Vial IV 09/01/24 13:20 15 mg ONCE ONE Administration Ondansetron HCl 4 mg 09/01/24 10:53 09/01/24 10:57 Ondansetron 4mg/2ml Vial IV 09/01/24 10:54 4 mg ONCE ONE Administration ORDERS Category Date Time Status CT abdomen pelvis wo con Stat Cat Scan 09/01/24 10:53 Completed CMP [Comprehensive Metabolic Panel] Stat Lab 09/01/24 10:42 Completed Complete Blood Count Auto Diff Stat Lab 09/01/24 11:48 Completed HIV (1&2) Antibody Rapid Stat Lab 09/01/24 10:40 Completed UA [Urinalysis and Microscopic] Stat Lab 09/01/24 09:31 Completed Urine Culture Stat Micro 09/01/24 09:31 Received Medical Decision Narrative: In summary, this patient is a 39-year-old female presenting to the Emergency Department for evaluation of left flank pain, nausea, and vomiting. Differential diagnoses considered include but are not limited to gastritis, peptic ulcer disease, nephritis, ureterolithiasis. Ruling out the most morbid conditions drove assessment. I reviewed patient's past medical records and noted urinalysis obtained at [facility] that was concerning for hematuria without obvious concerns for infection. On exam, the patient is sitting upright and is mildly uncomfortable appearing. Workup included CBC, CMP, urinalysis, urine culture, and CT abdomen pelvis without IV contrast. She was given IV Toradol and Zofran for symptomatic improvement.. I independently interpreted CT scan prior to the radiologist read and noted no obvious obstructive uropathy. Please see their read for final interpretation. Labs were obtained that demonstrated hematuria without other acutely concerning abnormality. On reassessment, patient had good improvement after administration of interventions above. She is feeling better but she does still have intermittent left flank pain. Her urine demonstrates hematuria without obvious concerns for infection, meaning it is possible she could have passed a stone or has some other sort of urinary tract issue going on such as pyelonephritis or urinary tract infection. Will treat with an antibiotic just to be on the safe side and have her follow-up closely outpatient, as she may benefit from referral to urology. She is given prescription for cefdinir to treat this as well as Toradol and Zofran. Ultimately, labs are otherwise reassuring and symptoms have significantly improved, so I feel that she is appropriate for discharge home with very close follow-up as an outpatient and prescriptions as above. Strict return precautions were given. Critical Care Critical Care Time Critical Care Time: No
[2024-09-01 10:56] LABS: Blood Urea Nitrogen 8 mg/dl (7-17); Creatinine Clearance Estimated 198 mL/min (50-200); Estimated Glomerular Filt Rate 137 ml/min (>60); GFR (African American) 165 ML/MIN (>60)
[2024-09-01 10:57] LABS: Alanine Aminotransferase 16 U/L (12-78); Albumin/Globulin Ratio 1.3 (1.1-1.8); Alkaline Phosphatase 89 U/L (38-126); Anion Gap 13.8 mEq/L (5-15); Aspartate Amino Transferase 23 U/L (14-36); Bilirubin,Total 0.7 mg/dl (0.2-1.3); Calcium 9.2 mg/dl (8.4-10.2); Carbon Dioxide 24 mmol/L (22.0-30.0); Globulin 3.5 g/dL (1.3-3.2); Glucose 114 mg/dl (74-100); Total Protein,Serum 8.2 g/dl (6.3-8.2)
[2024-09-01] MEDS: KETOROLAC 30MG/ML VIAL 15 MG IV ×2 (10:57→13:22)
[2024-09-01] MEDS: ACETAMINOPHEN 500MG TAB 1000 MG PO (10:57)
[2024-09-01] MEDS: ONDANSETRON 4MG/2ML VIAL 4 MG IV (10:57)
[2024-09-01 11:00] VITALS: BP 154/99; PULSE 83; O2SAT 95
[2024-09-01 11:12] LABS: Microscopic, Urine URINE MICROSCOPIC (MICROSCOPIC)
[2024-09-01 11:25] LABS: Appearance,Urine CLEAR (Clear); Blood, Urine 2+ (Negative); Color,Urine YELLOW (Yellow); Glucose,Urine (UA) Negative (Negative); Ketones,Urine TRACE (Negative); Leukocyte Esterase,Urine Negative (Negative); Nitrate,Urine Negative (Negative); Protein,Urine Negative (Negative); Specific Gravity, Urine >= 1.030 (1.005-1.030); Urobilinogen,Urine 0.2 EU/dl (0.2)
[2024-09-01 11:30] VITALS: BP 146/96; PULSE 74; O2SAT 98
[2024-09-01 11:38] LABS: Bilirubin,Urine 1+ (Negative)
[2024-09-01 11:47] LABS: HIV (1&2) Antibody Rapid NONREACTIVE (NONREACTIVE)
--- NOTE | 2024-09-01 11:51 | PC.NURSE ---
DR MILNER AT BEDSIDE TO UPDATE PT AND FAMILY
[2024-09-01 11:54] LABS: Basophils # 0.2 K/mm3 (0-0.2); Eosinophils # 0.1 K/mm3 (0.0-0.4); Eosinophils % 0.8 % (0.1-12.0); Hematocrit 40.8 % (37.0-47.0); Hemoglobin 14.2 g/dL (12.2-16.2); Lymphocytes # 2.1 K/mm3 (0.7-4.5); Lymphocytes % 27.6 % (10-50); Mean Corpuscular HGB Conc 34.8 g/dL (31.8-35.4); Mean Corpuscular Hemoglobin 31.3 pg (27.0-31.2); Mean Corpuscular Volume 89.9 fl (81-99); Mean Platelet Volume 7.7 fl (7.4-10.4); Monocytes # 0.3 K/mm3 (0.1-1.0); Neutrophils % 65.6 % (37.0-80.0); Platelet Count 247 K/mm3 (142-424); Red Blood Count 4.53 M/mm3 (4.20-5.40); Red Cell Distribution Width 13.1 % (11.5-17.5); White Blood Count 7.6 K/mm3 (4.8-10.8)
[2024-09-01] MEDS: CEFDINIR 300MG CAPSULE 300 MG PO (13:22)
[2024-09-01 13:27] VITALS: BP 126/78; PULSE 68; RESP 18; TEMP 37.1; O2SAT 98
== END 2024-09-01 13:36 | disposition home or self-care (01) ==
LOC: UTC 09:09 → ER 10:35
PROVIDERS: Nurse Practitioner Family; Emergency Provider Emergency Medicine; PCP Internal Medicine
DX: R10.9 Unspecified abdominal pain (principal); R31.9 Hematuria, unspecified
CPT/HCPCS: 74176; 80053; 81001; 81003; 85025; 87086; 87389; 96374; 96375; 96376; 99284; J1885; J2405

== ENCOUNTER 2024-09-01 21:57 | Emergency (ER) | payer OTHER, SELFPAY ==
[2024-09-01 21:58] VITALS: BP 171/108; PULSE 97; RESP 14; TEMP 37.1; O2SAT 96; BMI 33.8
[2024-09-01 22:00] VITALS: BMI 33.8
[2024-09-01] MEDS: FAMOTIDINE 20MG TABLET 40 MG PO (22:06)
[2024-09-01] MEDS: EPINEPHrine 1 MG/ML AMPUL 0.3 MG IM (22:07)
[2024-09-01] MEDS: diphenhydrAMINE 25MG CAPSULE 50 MG PO (22:07)
--- NOTE | 2024-09-01 22:12 | ECG_ITS ---
APPROVED REPORT Exam: Resting ECG HR:105 bpm ECG Measurements Heart Rate 105 AXES DE 150 P 53 QRSd 89 QRS 41 QT 325 T -34 QTc [address] DEVIATION AND MODERATE T-WAVE ABNORMALITY, CONSIDER INFERIOR ISCHEMIA [-0.1+ mV T-WAVE IN II/aVF] ABNORMAL ECG Depression in the inferior and lateral leads, does not meet criteria for STEMI Electronically signed by : SAUMYA UREÑA, 09/03/2024 03:42:33
--- NOTE | 2024-09-01 22:41 | [facility].EDGENADL ---
Discharge Plan Disposition Patient Disposition: Home, Self-Care Condition: Good Prescriptions Prescriptions: New ciprofloxacin HCl 500 mg tablet 500 mg PO BID Qty: 14 0RF epinephrine 0.3 mg/0.3 mL auto-injector 0.3 mg IM Q10M PRN (Reason: anaphylaxis) Qty: 2 0RF Rx Instructions: for 2 doses No Action phenazopyridine 200 MG tablet 200 pow PO TID Qty: 6 0RF sulfamethoxazole-trimethoprim 1 EACH tablet 1 each PO BID 10 Days Qty: 20 0RF ketorolac 10 mg tablet 10 mg PO Q8H PRN (Reason: pain) 3 Days Qty: 12 0RF cefdinir 300 mg capsule 300 mg PO BID 10 Days Qty: 20 0RF ondansetron 4 mg tablet,disintegrating 4 mg PO Q8H PRN (Reason: nausea and vomiting) 4 Days Qty: 12 0RF Referrals Follow up/Referrals: Dinesh Madrigal [Primary Care Provider] - See instructions Activity Restrictions/Add. Instructions Additional Instructions/Restrictions: You were evaluated in the ER and are appropriate for discharge at this time. STOP taking the cefdinir. START taking the ciprofloxacin. Do not skip doses, do not stop taking it early. I also recommend taking ibuprofen instead of ketorolac. You can also take Tylenol if needed for pain. Drink plenty of water. If you ever have to use the EpiPen, immediately come to the ER. Only use this if you are having severe allergic reaction as discussed. Make an appointment with your primary care doctor for reevaluation in a few days, return to the ER with new, worsening, or otherwise concerning symptoms, or if you have to use your EpiPen. Clinical Impressions Clinical Impression: Drug-induced anaphylaxis Print Language Print Language: Kiswahili Discharge ED Provider: Kade Giang General Adult HPI <Kade Giang MD - Last Filed: 09/01/24 22:57> General Chief complaint: Allergic Reaction Stated complaint: Possible allergic reaction to new medicine Time Seen by Provider: 09/01/24 22:02 Mode of Arrival: Ambulatory Source of Information: Patient Limitations: No Limitations Description of Symptoms (Recalled from ER Triage Doc. by RN): Pt ambulatory to ED with c/o N/V, upset stomach, heart palpitations, and face flushing that started after taking cefdinir @1300 today. History of Present Illness HPI narrative: Please note that above description of symptoms, in this electronic medical record under categorization of recalled from ER triage doctor by RN are reflective of an initial nursing assessment, however, is not reflective of my full history and physical exam that was personally taken and clarified. Consequentially, this preceding description of symptoms, which may include the patient's categorized chief complaint in the EMR, do not reflect my personal clinical impression, and the ultimate description of history of present illness and patient stated complaints should be deferred to this section of the note. Unless stated otherwise or congruent with this section of the note, additional signs, symptoms, or incongruence should be interpreted as inaccurate with my clinical impression. Related Data Previous Rx's ?Medication ?Instructions ?Recorded phenazopyridine 200 mg tablet 200 pow PO TID #6 tabs 06/01/22 sulfamethoxazole 800 1 each PO BID 10 days #20 tabs 06/01/22 mg-trimethoprim 160 mg tablet cefdinir 300 mg capsule 300 mg PO BID 10 days #20 caps 09/01/24 ciprofloxacin HCl 500 mg tablet 500 mg PO BID #14 tabs 09/01/24 epinephrine 0.3 mg/0.3 mL 0.3 mg (0.3 mL) IM Q10M PRN 09/01/24 injection, auto-injector anaphylaxis #2 ea ketorolac 10 mg tablet 10 mg PO Q8H PRN pain 3 days #12 09/01/24 tabs ondansetron 4 mg disintegrating 4 mg PO Q8H PRN nausea and 09/01/24 tablet vomiting 4 days #12 tabs Allergies Allergy/AdvReac Type Severity Reaction Status Date / Time cefdinir Allergy Severe Anaphylaxis Verified 09/02/24 00:42 Penicillins Allergy Verified 09/02/24 00:42 [facility] <Kade Giang MD - Last Filed: 09/01/24 22:57> [facility] Disclaimer: The information contained in this section may have been updated after the patient was seen, as this information can be updated by other users. Social History Smoking Status: Never smoker alcohol intake: never substance use type: denies use current occupational status: other Travel in the last 8 weeks: None Other Medical History Have you received the Flu Vaccine for this season: No Have you received the Pneumonia Vaccine: No <Kade Giang MD - Last Filed: 09/01/24 22:57> ROS Obtained: Yes All systems reviewed & no additional complaints except as documented Physical Exam <Kade Giang MD - Last Filed: 09/01/24 22:57> General General appearance: alert Head Head exam: atraumatic and normocephalic Eye Eye exam: Present normal appearance, PERRL and EOMI Neck Neck exam: Present normal inspection, full ROM and trachea midline Respiratory Respiratory exam: Present normal lung sounds bilaterally; Absent respiratory distress, wheezes, stridor, accessory muscle use or prolonged expiratory phase Cardiovascular Cardiovascular exam: Present normal rhythm, tachycardia and other (Pulses equal symmetric in upper and lower extremities) Abdominal Exam Abdominal exam: Present soft; Absent distention, tenderness or pulsatile mass Extremities Exam Extremities exam: Absent edema Neurological Exam Neurological exam: Present alert, oriented X3 and CN II-XII intact; Absent motor sensory deficit Skin Skin exam: Present warm and dry; Absent diaphoresis or erythema Medical Decision Making <Kade Giang MD - Last Filed: 09/01/24 22:57> Medical Records Medical records reviewed: Yes I reviewed the patient's medical records. Screening: Per USPSTF and CDC recommendations, given the prevalence of disease in our region, it is our hospital?s policy to screen for HIV and viral Hepatitis for all patients aged 18 and over and those with ongoing risk factors. Kris Inquiry Pt receiving controlled substance: No Kris was queried for this patient: No Vital Signs: 09/01/24 21:58 09/01/24 23:00 09/01/24 23:30 Temperature 98.8 F Temperature Source Oral Pulse Rate 84 85 Pulse Rate [Left Radial] 97 H Respiratory Rate 14 17 14 Blood Pressure 152/85 H 142/89 H Blood Pressure [Right Arm] 171/108 H Blood Pressure Mean [Right Arm] 129 Blood Pressure Source [Right Arm] Automatic Cuff Blood Pressure Position [Right Arm] Sitting 02 Sat by Pulse Oximetry 96 97 96 Oxygen Delivery Method Room Air 09/02/24 00:30 09/02/24 00:41 Temperature 98.1 F Temperature Source Pulse Rate 91 H 96 H Pulse Rate [Left Radial] Respiratory Rate 18 16 Blood Pressure 130/84 130/84 Blood Pressure [Right Arm] Blood Pressure Mean [Right Arm] Blood Pressure Source [Right Arm] Blood Pressure Position [Right Arm] 02 Sat by Pulse Oximetry 97 Oxygen Delivery Method Room Air Lab Data Lab Results 09/02/24 00:10: WBC 8.6, RBC 4.47, Hgb 13.9, Hct 40.4, MCV 90.4, MCH 31.0, MCHC 34.3, RDW 13.0, Plt Count 259, MPV 7.7, Neut % (Auto) 73.6, Lymph % (Auto) 20.1, [place] % (Auto) 5.2, Eos % (Auto) 0.5, Baso % (Auto) 0.7, Neut # (Auto) 6.3, Lymph # (Auto) 1.7, [place] # (Auto) 0.4, Eos # (Auto) 0.0, Baso # (Auto) 0.1, Sodium 139, Potassium 3.6, Chloride 106, Carbon Dioxide 22, Anion Gap 14.6, BUN 9, Creatinine 0.50 L, Estimated Creat Clear 198, Estimated GFR 137, Est GFR ( Amer) 165, Glucose 109 H, Calcium 9.1, Total Bilirubin 0.8, AST 26, ALT 15, Alkaline Phosphatase 74, Troponin I < 0.01, Total Protein 7.9, Albumin 4.6, Globulin 3.3 H, Albumin/Globulin Ratio 1.4, TSH 2.34, Thyroxine (T4) 11.2 H 09/02/24 00:10 09/02/24 00:10 Orders (Tests/Meds): ED MEDICATIONS Discontinued Medications Generic Name Dose Route Start Last Admin Trade Name Nickq PRN Reason Stop Dose Admin Diphenhydramine HCl 50 mg 09/01/24 22:04 09/01/24 22:07 Diphenhydramine 25mg Capsule PO 09/01/24 22:05 50 mg ONCE ONE Administration Epinephrine HCl 0.3 mg 09/01/24 22:01 09/01/24 22:07 Epinephrine 1 Mg/Ml Ampul IM 09/01/24 22:02 0.3 mg ONCE ONE Administration Famotidine 40 mg 09/01/24 22:02 09/01/24 22:06 Famotidine 20mg Tablet PO 09/01/24 22:03 40 mg ONCE ONE Administration ORDERS Category Date Time Status CBC w/Auto Diff [Complete Blood Count Auto Diff] Stat Lab 09/01/24 22:36 Completed CMP [Comprehensive Metabolic Panel] Stat Lab 09/01/24 22:36 Completed T4 (Thyroxine) Stat Lab 09/01/24 22:36 Completed TSH [Thyroid Stimulating Hormone] Stat Lab 09/01/24 22:36 Completed Trop I [Troponin I] Stat Lab 09/01/24 22:36 Completed Medical Decision Narrative: 39-year-old female history of hypertension, recent diagnosis of presumed UTI started on cefdinir presenting with concern for medication reaction.Patient states that she took the cefdinir around 1 PM and feeling fine until just a little before arrival, started having profuse vomiting, fast heart rate, palpitations, and flushing. Has never had cefdinir before. No chest pain, cough, syncope, shortness of breath, tongue or throat swelling, or any other concerns. History was obtained via conversation with patient. On arrival, patient hemodynamically stable, alert, oriented x4, appropriate, GCS 15, moving all extremities spontaneously, pupils equal and reactive to light. Full physical exam performed and significant for diffuse flushing and tachycardia. Patient not actively retching. Pulmonary exam without wheezes. No evidence of stridor. Patient heart rate 140-150. Differential includes anaphylaxis, ACS, ND, gastritis, enteritis, pancreatitis, among others. Patient placed on continuous cardiac monitoring and continuous pulse ox with initial blood pressure 171/108, heart rate 97, saturation 96% on room air. Independent interpretation of EKG shows sinus tachycardia with T wave inversions in anterolateral leads as well as inferior leads. Patient was given IM epinephrine as well as Benadryl and steroids for symptomatic management and correction of underlying abnormalities. Workup and reevaluation pending at time of handoff Valve Seater Operator disclaimer Much of this encounter note is an electronic mathematics department chair spoken language to printed text. Electronic mathematics department chair of the spoken language may permit errors. Although I have reviewed the note, some errors may still exist. <Nilton Ford MD - Last Filed: 09/02/24 01:14> Vital Signs: 09/01/24 21:58 09/01/24 23:00 09/01/24 23:30 Temperature 98.8 F Temperature Source Oral Pulse Rate 84 85 Pulse Rate [Left Radial] 97 H Respiratory Rate 14 17 14 Blood Pressure 152/85 H 142/89 H Blood Pressure [Right Arm] 171/108 H Blood Pressure Mean [Right Arm] 129 Blood Pressure Source [Right Arm] Automatic Cuff Blood Pressure Position [Right Arm] Sitting 02 Sat by Pulse Oximetry 96 97 96 Oxygen Delivery Method Room Air 09/02/24 00:30 09/02/24 00:41 Temperature 98.1 F Temperature Source Pulse Rate 91 H 96 H Pulse Rate [Left Radial] Respiratory Rate 18 16 Blood Pressure 130/84 130/84 Blood Pressure [Right Arm] Blood Pressure Mean [Right Arm] Blood Pressure Source [Right Arm] Blood Pressure Position [Right Arm] 02 Sat by Pulse Oximetry 97 Oxygen Delivery Method Room Air Lab Data Lab Results 09/02/24 00:10: WBC 8.6, RBC 4.47, Hgb 13.9, Hct 40.4, MCV 90.4, MCH 31.0, MCHC 34.3, RDW 13.0, Plt Count 259, MPV 7.7, Neut % (Auto) 73.6, Lymph % (Auto) 20.1, [place] % (Auto) 5.2, Eos % (Auto) 0.5, Baso % (Auto) 0.7, Neut # (Auto) 6.3, Lymph # (Auto) 1.7, [place] # (Auto) 0.4, Eos # (Auto) 0.0, Baso # (Auto) 0.1, Sodium 139, Potassium 3.6, Chloride 106, Carbon Dioxide 22, Anion Gap 14.6, BUN 9, Creatinine 0.50 L, Estimated Creat Clear 198, Estimated GFR 137, Est GFR ( Amer) 165, Glucose 109 H, Calcium 9.1, Total Bilirubin 0.8, AST 26, ALT 15, Alkaline Phosphatase 74, Troponin I < 0.01, Total Protein 7.9, Albumin 4.6, Globulin 3.3 H, Albumin/Globulin Ratio 1.4, TSH 2.34, Thyroxine (T4) 11.2 H Orders (Tests/Meds): ED MEDICATIONS Discontinued Medications Generic Name Dose Route Start Last Admin Trade Name Freq PRN Reason Stop Dose Admin Diphenhydramine HCl 50 mg 09/01/24 22:04 09/01/24 22:07 Diphenhydramine 25mg Capsule PO 09/01/24 22:05 50 mg ONCE ONE Administration Epinephrine HCl 0.3 mg 09/01/24 22:01 09/01/24 22:07 Epinephrine 1 Mg/Ml Ampul IM 09/01/24 22:02 0.3 mg ONCE ONE Administration Famotidine 40 mg 09/01/24 22:02 09/01/24 22:06 Famotidine 20mg Tablet PO 09/01/24 22:03 40 mg ONCE ONE Administration ORDERS Category Date Time Status CBC w/Auto Diff [Complete Blood Count Auto Diff] Stat Lab 09/01/24 22:36 Completed CMP [Comprehensive Metabolic Panel] Stat Lab 09/01/24 22:36 Completed T4 (Thyroxine) Stat Lab 09/01/24 22:36 Completed TSH [Thyroid Stimulating Hormone] Stat Lab 09/01/24 22:36 Completed Trop I [Troponin I] Stat Lab 09/01/24 22:36 Completed Medical Decision Narrative: 39-year-old female history of hypertension, recent diagnosis of presumed UTI started on cefdinir presenting with concern for medication reaction.Patient states that she took the cefdinir around 1 PM and feeling fine until just a little before arrival, started having profuse vomiting, fast heart rate, palpitations, and flushing. Has never had cefdinir before. No chest pain, cough, syncope, shortness of breath, tongue or throat swelling, or any other concerns. History was obtained via conversation with patient. On arrival, patient hemodynamically stable, alert, oriented x4, appropriate, GCS 15, moving all extremities spontaneously, pupils equal and reactive to light. Full physical exam performed and significant for diffuse flushing and tachycardia. Patient not actively retching. Pulmonary exam without wheezes. No evidence of stridor. Patient heart rate 140-150. Differential includes anaphylaxis, ACS, ND, gastritis, enteritis, pancreatitis, among others. Patient placed on continuous cardiac monitoring and continuous pulse ox with initial blood pressure 171/108, heart rate 97, saturation 96% on room air. Independent interpretation of EKG shows sinus tachycardia with T wave inversions in anterolateral leads as well as inferior leads. Patient was given IM epinephrine as well as Benadryl and steroids for symptomatic management and correction of underlying abnormalities. Workup and reevaluation pending at time of handoff Valve Seater Operator disclaimer Much of this encounter note is an electronic mathematics department chair spoken language to printed text. Electronic mathematics department chair of the spoken language may permit errors. Although I have reviewed the note, some errors may still exist. Ford: Upon my assumption of care patient is stable and resting comfortably. She states her symptoms have dramatically improved since being medicated in the ER. Labs were drawn and reviewed demonstrating no leukocytosis, normal CBC, CMP nonactionable, troponin undetectably low at less than 0.01, patient is having no chest pain or difficulty breathing. Serial troponins are not indicated at this time. T4 elevated but normal TSH. This can be followed on an outpatient basis. Patient had been monitored in the ER without any rebound symptoms. I changed her antibiotics to ciprofloxacin though I have lower suspicion for active UTI since she does not have dysuria. I told her to stop taking cefdinir. This was recorded as an allergy for her. She has follow-up scheduled with her PCP which I instructed her to keep. I also prescribed EpiPen for anaphylaxis and instructed her on the use of this and strict return precautions if she uses it. Patient was given instructions on symptomatic management, follow up instructions, and return precautions for the emergency department. Patient indicated understanding and was discharged in stable condition. Critical Care <Kade Giang MD - Last Filed: 09/01/24 22:57> Critical Care Time Critical Care Time: No
[2024-09-01 23:00] VITALS: BP 152/85; PULSE 84; RESP 17; O2SAT 97
[2024-09-01 23:30] VITALS: BP 142/89; PULSE 85; RESP 14; O2SAT 96
[2024-09-02 00:11] LABS: Basophils # 0.1 K/mm3 (0-0.2); Basophils % 0.7 % (0.1-2.0); Eosinophils % 0.5 % (0.1-12.0); Hematocrit 40.4 % (37.0-47.0); Hemoglobin 13.9 g/dL (12.2-16.2); Lymphocytes # 1.7 K/mm3 (0.7-4.5); Lymphocytes % 20.1 % (10-50); Mean Corpuscular HGB Conc 34.3 g/dL (31.8-35.4); Mean Corpuscular Volume 90.4 fl (81-99); Mean Platelet Volume 7.7 fl (7.4-10.4); Monocytes # 0.4 K/mm3 (0.1-1.0); Monocytes % 5.2 % (1.7-9.3); Neutrophils # 6.3 K/mm3 (1.8-7.8); Neutrophils % 73.6 % (37.0-80.0); Platelet Count 259 K/mm3 (142-424); Red Blood Count 4.47 M/mm3 (4.20-5.40); White Blood Count 8.6 K/mm3 (4.8-10.8)
[2024-09-02 00:21] LABS: Albumin Level 4.6 g/dl (3.5-5.0); Chloride 106 mmol/L (98-107); Sodium 139 mmol/L (136-145)
[2024-09-02 00:22] LABS: Potassium 3.6 mmoL/L (3.5-5.1)
[2024-09-02 00:24] LABS: Alanine Aminotransferase 15 U/L (12-78); Albumin/Globulin Ratio 1.4 (1.1-1.8); Alkaline Phosphatase 74 U/L (38-126); Anion Gap 14.6 mEq/L (5-15); Aspartate Amino Transferase 26 U/L (14-36); Bilirubin,Total 0.8 mg/dl (0.2-1.3); Blood Urea Nitrogen 9 mg/dl (7-17); Carbon Dioxide 22 mmol/L (22.0-30.0); Creatinine Clearance Estimated 198 mL/min (50-200); Estimated Glomerular Filt Rate 137 ml/min (>60); GFR (African American) 165 ML/MIN (>60); Globulin 3.3 g/dL (1.3-3.2); Total Protein,Serum 7.9 g/dl (6.3-8.2)
[2024-09-02 00:25] LABS: Calcium 9.1 mg/dl (8.4-10.2); Glucose 109 mg/dl (74-100)
[2024-09-02 00:30] VITALS: BP 130/84; PULSE 91; RESP 18; O2SAT 97
[2024-09-02 00:38] LABS: Troponin I < 0.01 ng/ml (0.00-0.034)
[2024-09-02 00:41] VITALS: BP 130/84; PULSE 96; RESP 16; TEMP 36.7; O2SAT 97
[2024-09-02 00:42] LABS: T4 (Thyroxine) 11.2 ug/dl (5.53-11.0)
[2024-09-02 00:55] LABS: Thyroid Stimulating Hormone 2.34 uIU/mL (0.465-4.68)
== END 2024-09-02 00:47 | disposition home or self-care (01) ==
PROVIDERS: Emergency Provider Emergency Medicine; PCP Internal Medicine
DX: T78.2XXA Anaphylactic shock, unspecified, initial encounter (principal)
CPT/HCPCS: 80050; 80053; 84436; 84443; 84484; 85025; 93005; 99284; J0171

== ENCOUNTER 2024-09-02 22:22 | Observation (INO) | payer OTHER, SELFPAY ==
[2024-09-02 22:30] VITALS: BP 180/108; PULSE 108; RESP 18; TEMP 36.6; O2SAT 99; BMI 33.8
[2024-09-02 22:31] VITALS: PULSE 102; O2SAT 97
--- NOTE | 2024-09-02 22:32 | ECG_ITS ---
APPROVED REPORT Exam: Resting ECG HR:91 bpm ECG Measurements Heart Rate 91 AXES W[place] 143 P 43 QRSd 90 QRS 32 QT 329 T 0 QTc 377 Conclusion Sinus rhythm Nonspecific T wave abnormality Electronically signed by : ORQUIDEA HDZ, 09/03/2024 15:10:06
[2024-09-02 22:45] VITALS: BP 169/91; PULSE 88; O2SAT 98
--- NOTE | 2024-09-02 22:50 | CT_ITS ---
PROCEDURE INFORMATION: Exam: CT Abdomen And Pelvis With Contrast Exam date and time: 09/02/2024 11:40 PM Age: 39 years old Clinical indication: Abdominal pain; Flank; Left; Additional info: L flank pain, HTN, tachycardia, flushing, eval TECHNIQUE: Imaging protocol: Computed tomography of the abdomen and pelvis with contrast. Radiation optimization: All CT scans at this facility use at least one of these dose optimization techniques: automated exposure control; mA and/or kV adjustment per patient size (includes targeted exams where dose is matched to clinical indication); or iterative reconstruction. Contrast material: ISOVUE; Contrast volume: 75 ml; Contrast route: IV; COMPARISON: CT ABDOMEN PELVIS WO CON 09/01/2024 11:06 AM FINDINGS: Lungs: The visualized lung bases demonstrate no focal infiltrates or pleural effusions. Liver: The liver appears within normal limits. Gallbladder and biliary ducts: The gallbladder is normal. There is no evidence of biliary ductal dilation. Pancreas: The pancreas is normal. Spleen: The spleen is normal. Adrenal glands: The adrenal glands appear within normal limits. Kidneys and ureters: The kidneys are normal. Stomach and bowel: The stomach appears within normal limits. No wall thickening or inflammatory change. Appendix: No evidence of appendicitis. Intraperitoneal space: No free air. No evidence for focal fluid collection or ascites. No evidence for omental thickening. Vasculature: Unremarkable. No abdominal aortic aneurysm. Lymph nodes: Unremarkable. No pathologically enlarged lymph nodes are identified. Urinary bladder: The bladder appears within normal limits. No wall thickening. Reproductive: The uterus and adnexal structures appear normal. Bones/joints: Unremarkable. No acute fracture. Soft tissues: Unremarkable. IMPRESSION: No acute abnormalities are identified.
--- NOTE | 2024-09-02 22:52 | HMH.EDGENADL ---
Discharge Plan Disposition Patient Disposition: Admitted Condition: Fair Clinical Impressions Clinical Impression: Hypertension, Tachycardia, Nausea Discharge ED Provider: Kade Giang General Adult HPI <Kade Giang MD - Last Filed: 09/02/24 22:56> General Chief complaint: Allergic Reaction Stated complaint: Allergic reaction to medicine Time Seen by Provider: 09/02/24 22:35 Mode of Arrival: Ambulatory Source of Information: Patient Limitations: No Limitations Description of Symptoms (Recalled from ER Triage Doc. by RN): Patient reports she became jittery after taking a zofran at 3pm. States she noticed a rash, so she took a benadryl at 9:30pm with no relief. Was stated she was in ER last night and had omnicef and was warned about having a rebound reaction and instructed to return if this occured. History of Present Illness HPI narrative: Please note that above description of symptoms, in this electronic medical record under categorization of recalled from ER triage doctor by RN are reflective of an initial nursing assessment, however, is not reflective of my full history and physical exam that was personally taken and clarified. Consequentially, this preceding description of symptoms, which may include the patient's categorized chief complaint in the EMR, do not reflect my personal clinical impression, and the ultimate description of history of present illness and patient stated complaints should be deferred to this section of the note. Unless stated otherwise or congruent with this section of the note, additional signs, symptoms, or incongruence should be interpreted as inaccurate with my clinical impression. Related Data Previous Rx's ?Medication ?Instructions ?Recorded epinephrine 0.3 mg/0.3 mL 0.3 mg (0.3 mL) IM Q10M PRN 09/01/24 injection, auto-injector anaphylaxis #2 ea ketorolac 10 mg tablet 10 mg PO Q8H PRN pain 3 days #12 09/01/24 tabs ondansetron 4 mg disintegrating 4 mg PO Q8H PRN nausea and 09/01/24 tablet vomiting 4 days #12 tabs Allergies Allergy/AdvReac Type Severity Reaction Status Date / Time cefdinir Allergy Severe Anaphylaxis Verified 09/02/24 00:42 Penicillins Allergy Verified 09/02/24 00:42 PFSH <Kade Ginag MD - Last Filed: 09/02/24 22:56> PFS Disclaimer: The information contained in this section may have been updated after the patient was seen, as this information can be updated by other users. Medical History (Updated 09/03/24 @ 02:57 by Eric Valle APRN) Seizures section wound complication Brain injury Family History Other Family history of arthritis Family history of lung cancer Social History Smoking Status: Never smoker alcohol intake: never substance use type: denies use current occupational status: employed Travel in the last 8 weeks: None Other Medical History Have you received the Flu Vaccine for this season: No Have you received the Pneumonia Vaccine: No <Kade Giang MD - Last Filed: 09/02/24 22:56> ROS Obtained: Yes All systems reviewed & no additional complaints except as documented Physical Exam <Kade Giang MD - Last Filed: 09/02/24 22:56> General General appearance: alert and anxious Head Head exam: atraumatic and normocephalic Eye Eye exam: Present normal appearance, PERRL and EOMI Neck Neck exam: Present normal inspection, full ROM and trachea midline Respiratory Respiratory exam: Present normal lung sounds bilaterally; Absent respiratory distress, wheezes, stridor, accessory muscle use or prolonged expiratory phase Cardiovascular Cardiovascular exam: Present normal rhythm, tachycardia and other (Pulses equal symmetric in upper and lower extremities) Abdominal Exam Abdominal exam: Present soft; Absent distention, tenderness or pulsatile mass Extremities Exam Extremities exam: Absent edema Neurological Exam Neurological exam: Present alert, oriented X3 and CN II-XII intact; Absent motor sensory deficit Skin Skin exam: Present warm and dry; Absent diaphoresis or erythema Medical Decision Making <Kade Giang MD - Last Filed: 09/02/24 22:56> Medical Records Medical records reviewed: Yes I reviewed the patient's medical records. Screening: Per USPSTF and CDC recommendations, given the prevalence of disease in our region, it is our hospital?s policy to screen for HIV and viral Hepatitis for all patients aged 18 and over and those with ongoing risk factors. Kris Inquiry Pt receiving controlled substance: No Kris was queried for this patient: No Vital Signs: 09/02/24 22:30 09/02/24 22:31 09/02/24 22:45 Temperature 97.9 F Temperature Source Oral Pulse Rate 102 H 88 Pulse Rate [Right Radial] 108 H Respiratory Rate 18 Blood Pressure 169/91 H Blood Pressure [Right Arm] 180/108 H Blood Pressure Mean [Right Arm] 132 Blood Pressure Source Blood Pressure Source [Right Arm] Automatic Cuff Blood Pressure Position Blood Pressure Position [Right Arm] Supine 02 Sat by Pulse Oximetry 99 97 98 Oxygen Delivery Method Room Air 09/02/24 23:00 09/02/24 23:30 09/02/24 23:45 Temperature Temperature Source Pulse Rate 86 85 88 Pulse Rate [Right Radial] Respiratory Rate 19 14 Blood Pressure 164/98 H 128/89 128/89 Blood Pressure [Right Arm] Blood Pressure Mean [Right Arm] Blood Pressure Source Blood Pressure Source [Right Arm] Blood Pressure Position Blood Pressure Position [Right Arm] 02 Sat by Pulse Oximetry 97 98 99 Oxygen Delivery Method 09/03/24 00:00 09/03/24 00:30 09/03/24 00:50 Temperature Temperature Source Pulse Rate 84 78 79 Pulse Rate [Right Radial] Respiratory Rate 19 16 18 Blood Pressure 139/89 135/91 H 141/94 H Blood Pressure [Right Arm] Blood Pressure Mean [Right Arm] Blood Pressure Source Blood Pressure Source [Right Arm] Blood Pressure Position Blood Pressure Position [Right Arm] 02 Sat by Pulse Oximetry 99 98 96 Oxygen Delivery Method 09/03/24 01:00 09/03/24 01:30 09/03/24 02:00 Temperature 97.9 F Temperature Source Oral Pulse Rate 74 79 72 Pulse Rate [Right Radial] Respiratory Rate 18 18 18 Blood Pressure 130/81 151/94 H 151/94 H Blood Pressure [Right Arm] Blood Pressure Mean [Right Arm] Blood Pressure Source Automatic Cuff Blood Pressure Source [Right Arm] Blood Pressure Position Supine Blood Pressure Position [Right Arm] 02 Sat by Pulse Oximetry 95 98 Oxygen Delivery Method Room Air 09/03/24 02:00 Temperature 97.8 F Temperature Source Oral Pulse Rate Pulse Rate [Right Radial] 79 Respiratory Rate 16 Blood Pressure Blood Pressure [Right Arm] 154/102 H Blood Pressure Mean [Right Arm] 119 Blood Pressure Source Blood Pressure Source [Right Arm] Automatic Cuff Blood Pressure Position Blood Pressure Position [Right Arm] 02 Sat by Pulse Oximetry 97 Oxygen Delivery Method Room Air Lab Data Lab Results 09/02/24 22:35: WBC 8.7, RBC 4.49, Hgb 14.3, Hct 40.4, MCV 89.9, MCH 31.9 H, MCHC 35.4, RDW 13.1, Plt Count 274, MPV 7.7, Neut % (Auto) 59.6, Lymph % (Auto) 33.8, [place] % (Auto) 4.8, Eos % (Auto) 0.9, Baso % (Auto) 0.9, Neut # (Auto) 5.2, Lymph # (Auto) 3.0, [place] # (Auto) 0.4, Eos # (Auto) 0.1, Baso # (Auto) 0.1, Sodium 140, Potassium 3.5, Chloride 105, Carbon Dioxide 24, Anion Gap 14.5, BUN 12 D, Creatinine 0.60, Estimated Creat Clear 165, Estimated GFR 111, Est GFR ( Amer) 134, Glucose 130 H, Calcium 9.4, Total Bilirubin 0.7, AST 27, ALT 18, Alkaline Phosphatase 80, Troponin I < 0.01, Total Protein 8.2, Albumin 4.7, Globulin 3.5 H, Albumin/Globulin Ratio 1.3, TSH 1.84, Thyroxine (T4) 9.9 09/02/24 23:00: Urine Color Yellow, Urine Appearance Clear, Urine pH 6.0, Ur Specific [place] <= 1.005, Urine Protein Negative, Urine Glucose (UA) Negative, Urine Ketones Negative, Urine Blood 1+ A, Urine Nitrate Negative, Urine Bilirubin Negative, Urine Urobilinogen 0.2, Ur Leukocyte Esterase Negative, Urine RBC 3-5, Urine WBC Occasional, Ur Squamous Epith Cells 10-20, Urine Bacteria 1+, Urine Yeast Occasional 09/02/24 22:35 09/02/24 22:35 Orders (Tests/Meds): ED MEDICATIONS Generic Name Dose Route Start Last Admin Trade Name Freq PRN Reason Stop Dose Admin Acetaminophen 650 mg 09/03/24 02:16 Acetaminophen 325mg Tab PO 10/03/24 02:15 Q4HP PRN Fever or Mild Pain (1-3) Enoxaparin Sodium 40 mg 09/03/24 09:00 Enoxaparin 40mg/0.4ml Syringe SUBCUT 10/03/24 08:59 DAILY SALEEM Ondansetron HCl 4 mg 09/03/24 02:16 Ondansetron 4mg/2ml Vial IV 10/03/24 02:15 Q8HP PRN Nausea Sodium Chloride 10 ml 09/02/24 23:46 09/02/24 23:47 Sodium Chloride 0.9% 10ml Syr (Rad Only) IV 10/02/24 23:45 10 ml NEEDED PRN Administration Maintain IV Site Sodium Chloride 10 ml 09/03/24 02:16 Sodium Chloride 0.9% 10ml Flush Syringe IV 10/03/24 02:15 NEEDED PRN Maintain IV Site Discontinued Medications Generic Name Dose Route Start Last Admin Trade Name Freq PRN Reason Stop Dose Admin Bisoprolol Fumarate 2.5 mg 09/02/24 22:51 09/02/24 23:04 Bisoprolol 5mg Tablet PO 09/02/24 22:52 2.5 mg ONCE ONE Administration Iopamidol 75 ml 09/02/24 23:46 09/02/24 23:46 Iopamidol-370 (76%);100ml Bottle IV 09/02/24 23:47 75 ml ONCE ONE Administration Ondansetron HCl 4 mg 09/03/24 00:44 09/03/24 00:51 Ondansetron 4mg/2ml Vial IV 09/03/24 00:45 4 mg ONCE ONE Administration ORDERS Category Date Time Status CT abdomen pelvis w con Stat Cat Scan 09/02/24 22:50 Completed Complete Blood Count Auto Diff Stat Lab 09/02/24 22:35 Completed Comprehensive Metabolic Panel Stat Lab 09/02/24 22:35 Completed Metanephrines, Fract. Plasma Stat Lab 09/02/24 23:00 Ordered T4 (Thyroxine) Stat Lab 09/02/24 22:35 Completed TSH [Thyroid Stimulating Hormone] Stat Lab 09/02/24 22:35 Completed Trop I [Troponin I] Stat Lab 09/03/24 00:03 Completed Troponin I Q3H Lab 09/03/24 05:00 Ordered Troponin I Q3H Lab 09/03/24 08:00 Ordered Urinalysis and Microscopic Stat Lab 09/02/24 23:00 Completed Medical Decision Narrative: This a 39-year-old female with no relevant medical history presenting with similar concerns as yesterday. Patient was seen 09/01 out of concern for medication reaction. Took cefdinir, about 9 hours later, had flushing, vomiting, tachycardia, was treated for anaphylaxis. Patient handed off by me to oncoming provider at that time, discharged without issue. Today, patient states that she was lying down around 10 PM when she had shakiness, tachycardia, flushing again. No other acute symptoms. Came in for further evaluation. She has not been taking the other antibiotic she was discharged on because she was afraid to, has had no other acute changes. No change in mental status, color, tone, or breathing, no psychiatric disturbances, vision changes, chest pain, shortness of breath, or any other concerns. History obtained the patient and chart review as well as family. On arrival, patient tachycardic, hypertensive, states that she is not typically hypertensive. Lungs are clear to auscultation, cardiac exam normal. Abdomen soft, nontender, nondistended without flank tenderness. Differential includes delayed medication reaction, hypersensitivity, thyroid abnormality, arrhythmia, among others. Less likely be pheochromocytoma, among other metabolic abnormalities. Labs ordered, imaging also ordered. Patient given 2.5 mg bisoprolol p.o. Prior to results, care handed off to oncoming physician. Corsetier disclaimer Much of this encounter note is an electronic university dean spoken language to printed text. Electronic university dean of the spoken language may permit errors. Although I have reviewed the note, some errors may still exist. <Nilton Ford MD - Last Filed: 09/03/24 03:04> Vital Signs: 09/02/24 22:30 09/02/24 22:31 09/02/24 22:45 Temperature 97.9 F Temperature Source Oral Pulse Rate 102 H 88 Pulse Rate [Right Radial] 108 H Respiratory Rate 18 Blood Pressure 169/91 H Blood Pressure [Right Arm] 180/108 H Blood Pressure Mean [Right Arm] 132 Blood Pressure Source Blood Pressure Source [Right Arm] Automatic Cuff Blood Pressure Position Blood Pressure Position [Right Arm] Supine 02 Sat by Pulse Oximetry 99 97 98 Oxygen Delivery Method Room Air 09/02/24 23:00 09/02/24 23:30 09/02/24 23:45 Temperature Temperature Source Pulse Rate 86 85 88 Pulse Rate [Right Radial] Respiratory Rate 19 14 Blood Pressure 164/98 H 128/89 128/89 Blood Pressure [Right Arm] Blood Pressure Mean [Right Arm] Blood Pressure Source Blood Pressure Source [Right Arm] Blood Pressure Position Blood Pressure Position [Right Arm] 02 Sat by Pulse Oximetry 97 98 99 Oxygen Delivery Method 09/03/24 00:00 09/03/24 00:30 09/03/24 00:50 Temperature Temperature Source Pulse Rate 84 78 79 Pulse Rate [Right Radial] Respiratory Rate 19 16 18 Blood Pressure 139/89 135/91 H 141/94 H Blood Pressure [Right Arm] Blood Pressure Mean [Right Arm] Blood Pressure Source Blood Pressure Source [Right Arm] Blood Pressure Position Blood Pressure Position [Right Arm] 02 Sat by Pulse Oximetry 99 98 96 Oxygen Delivery Method 09/03/24 01:00 09/03/24 01:30 09/03/24 02:00 Temperature 97.9 F Temperature Source Oral Pulse Rate 74 79 72 Pulse Rate [Right Radial] Respiratory Rate 18 18 18 Blood Pressure 130/81 151/94 H 151/94 H Blood Pressure [Right Arm] Blood Pressure Mean [Right Arm] Blood Pressure Source Automatic Cuff Blood Pressure Source [Right Arm] Blood Pressure Position Supine Blood Pressure Position [Right Arm] 02 Sat by Pulse Oximetry 95 98 Oxygen Delivery Method Room Air 09/03/24 02:00 Temperature 97.8 F Temperature Source Oral Pulse Rate Pulse Rate [Right Radial] 79 Respiratory Rate 16 Blood Pressure Blood Pressure [Right Arm] 154/102 H Blood Pressure Mean [Right Arm] 119 Blood Pressure Source Blood Pressure Source [Right Arm] Automatic Cuff Blood Pressure Position Blood Pressure Position [Right Arm] 02 Sat by Pulse Oximetry 97 Oxygen Delivery Method Room Air Lab Data Lab Results 09/02/24 22:35: WBC 8.7, RBC 4.49, Hgb 14.3, Hct 40.4, MCV 89.9, MCH 31.9 H, MCHC 35.4, RDW 13.1, Plt Count 274, MPV 7.7, Neut % (Auto) 59.6, Lymph % (Auto) 33.8, [place] % (Auto) 4.8, Eos % (Auto) 0.9, Baso % (Auto) 0.9, Neut # (Auto) 5.2, Lymph # (Auto) 3.0, [place] # (Auto) 0.4, Eos # (Auto) 0.1, Baso # (Auto) 0.1, Sodium 140, Potassium 3.5, Chloride 105, Carbon Dioxide 24, Anion Gap 14.5, BUN 12 D, Creatinine 0.60, Estimated Creat Clear 165, Estimated GFR 111, Est GFR ( Amer) 134, Glucose 130 H, Calcium 9.4, Total Bilirubin 0.7, AST 27, ALT 18, Alkaline Phosphatase 80, Troponin I < 0.01, Total Protein 8.2, Albumin 4.7, Globulin 3.5 H, Albumin/Globulin Ratio 1.3, TSH 1.84, Thyroxine (T4) 9.9 09/02/24 23:00: Urine Color Yellow, Urine Appearance Clear, Urine pH 6.0, Ur Specific [place] <= 1.005, Urine Protein Negative, Urine Glucose (UA) Negative, Urine Ketones Negative, Urine Blood 1+ A, Urine Nitrate Negative, Urine Bilirubin Negative, Urine Urobilinogen 0.2, Ur Leukocyte Esterase Negative, Urine RBC 3-5, Urine WBC Occasional, Ur Squamous Epith Cells 10-20, Urine Bacteria 1+, Urine Yeast Occasional Orders (Tests/Meds): ED MEDICATIONS Generic Name Dose Route Start Last Admin Trade Name Freq PRN Reason Stop Dose Admin Acetaminophen 650 mg 09/03/24 02:16 Acetaminophen 325mg Tab PO 10/03/24 02:15 Q4HP PRN Fever or Mild Pain (1-3) Enoxaparin Sodium 40 mg 09/03/24 09:00 Enoxaparin 40mg/0.4ml Syringe SUBCUT 10/03/24 08:59 DAILY SALEEM Ondansetron HCl 4 mg 09/03/24 02:16 Ondansetron 4mg/2ml Vial IV 10/03/24 02:15 Q8HP PRN Nausea Sodium Chloride 10 ml 09/02/24 23:46 09/02/24 23:47 Sodium Chloride 0.9% 10ml Syr (Rad Only) IV 10/02/24 23:45 10 ml NEEDED PRN Administration Maintain IV Site Sodium Chloride 10 ml 09/03/24 02:16 Sodium Chloride 0.9% 10ml Flush Syringe IV 10/03/24 02:15 NEEDED PRN Maintain IV Site Discontinued Medications Generic Name Dose Route Start Last Admin Trade Name Freq PRN Reason Stop Dose Admin Bisoprolol Fumarate 2.5 mg 09/02/24 22:51 09/02/24 23:04 Bisoprolol 5mg Tablet PO 09/02/24 22:52 2.5 mg ONCE ONE Administration Iopamidol 75 ml 09/02/24 23:46 09/02/24 23:46 Iopamidol-370 (76%);100ml Bottle IV 09/02/24 23:47 75 ml ONCE ONE Administration Ondansetron HCl 4 mg 09/03/24 00:44 09/03/24 00:51 Ondansetron 4mg/2ml Vial IV 09/03/24 00:45 4 mg ONCE ONE Administration ORDERS Category Date Time Status CT abdomen pelvis w con Stat Cat Scan 09/02/24 22:50 Completed Complete Blood Count Auto Diff Stat Lab 09/02/24 22:35 Completed Comprehensive Metabolic Panel Stat Lab 09/02/24 22:35 Completed Metanephrines, Fract. Plasma Stat Lab 09/02/24 23:00 Ordered T4 (Thyroxine) Stat Lab 09/02/24 22:35 Completed TSH [Thyroid Stimulating Hormone] Stat Lab 09/02/24 22:35 Completed Trop I [Troponin I] Stat Lab 09/03/24 00:03 Completed Troponin I Q3H Lab 09/03/24 05:00 Ordered Troponin I Q3H Lab 09/03/24 08:00 Ordered Urinalysis and Microscopic Stat Lab 09/02/24 23:00 Completed Medical Decision Narrative: This a 39-year-old female with no relevant medical history presenting with similar concerns as yesterday. Patient was seen 09/01 out of concern for medication reaction. Took cefdinir, about 9 hours later, had flushing, vomiting, tachycardia, was treated for anaphylaxis. Patient handed off by me to oncoming provider at that time, discharged without issue. Today, patient states that she was lying down around 10 PM when she had shakiness, tachycardia, flushing again. No other acute symptoms. Came in for further evaluation. She has not been taking the other antibiotic she was discharged on because she was afraid to, has had no other acute changes. No change in mental status, color, tone, or breathing, no psychiatric disturbances, vision changes, chest pain, shortness of breath, or any other concerns. History obtained the patient and chart review as well as family. On arrival, patient tachycardic, hypertensive, states that she is not typically hypertensive. Lungs are clear to auscultation, cardiac exam normal. Abdomen soft, nontender, nondistended without flank tenderness. Differential includes delayed medication reaction, hypersensitivity, thyroid abnormality, arrhythmia, among others. Less likely be pheochromocytoma, among other metabolic abnormalities. Labs ordered, imaging also ordered. Patient given 2.5 mg bisoprolol p.o. Prior to results, care handed off to oncoming physician. [place]etier disclaimer Much of this encounter note is an electronic university dean spoken language to printed text. Electronic university dean of the spoken language may permit errors. Although I have reviewed the note, some errors may still exist. Ford: Upon my assumption of care patient is stable and resting comfortably. She has had significant improvement in her symptoms since receiving the bisoprolol from the initial provider. Patient's tachycardia has improved with heart rate now in the 70s and blood pressure in the 130s. I reviewed labs which demonstrate no leukocytosis or anemia, CMP nonactionable and reassuring, I had added troponin which was undetectable at less than 0.01, UA still negative for findings of infection, small blood but only 3-5 RBCs, contaminated with squamous cells with negative nitrates and no dysuria, patient has not been taking her antibiotics that she was prescribed because she was afraid of reaction, I do not believe antibiotics are indicated at this time. CT abdomen pelvis with IV contrast was personally interpreted and I do not appreciate any obvious intra-abdominal pathology such as a mass. No adrenal abnormalities appreciated. See radiology read for final interpretation. On reassessment, patient is complaining of nausea coming back so she received Zofran. After discussing patient's symptoms and recurrence of symptoms, I am still concerned she could have pheochromocytoma with location elsewhere in the body, possibly renal abnormality that is causing her hypertension, or other pathology that has not yet been identified. Because she gets such severe hypertension and is symptomatic with it, I am concerned that she will be unsafe at home and have risk of hypertensive emergency potentially causing endorgan damage up to and including stroke. I recommended admission to the patient for further workup and she is in agreement with this plan. I discussed this case with the hospitalist and after reviewing her repeated visits to the ER, current labs and imaging, and her symptoms, he graciously excepted the patient for admission. Patient admitted in stable condition. Critical Care <Kade Giang MD - Last Filed: 09/02/24 22:56> Critical Care Time Critical Care Time: No
[2024-09-02 22:57] LABS: Basophils # 0.1 K/mm3 (0-0.2); Basophils % 0.9 % (0.1-2.0); Eosinophils # 0.1 K/mm3 (0.0-0.4); Eosinophils % 0.9 % (0.1-12.0); Hematocrit 40.4 % (37.0-47.0); Hemoglobin 14.3 g/dL (12.2-16.2); Lymphocytes % 33.8 % (10-50); Mean Corpuscular HGB Conc 35.4 g/dL (31.8-35.4); Mean Corpuscular Hemoglobin 31.9 pg (27.0-31.2); Mean Corpuscular Volume 89.9 fl (81-99); Mean Platelet Volume 7.7 fl (7.4-10.4); Monocytes # 0.4 K/mm3 (0.1-1.0); Monocytes % 4.8 % (1.7-9.3); Neutrophils # 5.2 K/mm3 (1.8-7.8); Neutrophils % 59.6 % (37.0-80.0); Platelet Count 274 K/mm3 (142-424); Red Blood Count 4.49 M/mm3 (4.20-5.40); Red Cell Distribution Width 13.1 % (11.5-17.5); White Blood Count 8.7 K/mm3 (4.8-10.8)
[2024-09-02 23:00] VITALS: BP 164/98; PULSE 86; O2SAT 97
[2024-09-02 23:04] LABS: Albumin Level 4.7 g/dl (3.5-5.0); Chloride 105 mmol/L (98-107); Potassium 3.5 mmoL/L (3.5-5.1); Sodium 140 mmol/L (136-145)
[2024-09-02] MEDS: BISOPROLOL 5MG TABLET 2.5 MG PO (23:04)
[2024-09-02 23:06] LABS: Blood Urea Nitrogen 12 mg/dl (7-17); Creatinine Clearance Estimated 165 mL/min (50-200); Estimated Glomerular Filt Rate 111 ml/min (>60); GFR (African American) 134 ML/MIN (>60)
[2024-09-02 23:07] LABS: Alanine Aminotransferase 18 U/L (12-78); Albumin/Globulin Ratio 1.3 (1.1-1.8); Alkaline Phosphatase 80 U/L (38-126); Anion Gap 14.5 mEq/L (5-15); Aspartate Amino Transferase 27 U/L (14-36); Bilirubin,Total 0.7 mg/dl (0.2-1.3); Calcium 9.4 mg/dl (8.4-10.2); Carbon Dioxide 24 mmol/L (22.0-30.0); Globulin 3.5 g/dL (1.3-3.2); Glucose 130 mg/dl (74-100); Total Protein,Serum 8.2 g/dl (6.3-8.2)
[2024-09-02 23:15] LABS: Appearance,Urine CLEAR (Clear); Bilirubin,Urine Negative (Negative); Blood, Urine 1+ (Negative); Color,Urine YELLOW (Yellow); Glucose,Urine (UA) Negative (Negative); Ketones,Urine Negative (Negative); Leukocyte Esterase,Urine Negative (Negative); Microscopic, Urine URINE MICROSCOPIC (MICROSCOPIC); Nitrate,Urine Negative (Negative); Protein,Urine Negative (Negative); Specific Gravity, Urine <= 1.005 (1.005-1.030); Urobilinogen,Urine 0.2 EU/dl (0.2)
[2024-09-02 23:24] LABS: T4 (Thyroxine) 9.9 ug/dl (5.53-11.0)
[2024-09-02 23:25] LABS: WBC,Urine Occasional #/hpf (0-3)
[2024-09-02 23:26] LABS: Bacteria,Urine 1+ /lpf; Yeast,Urine Occasional /lpf
[2024-09-02 23:30] VITALS: BP 128/89; PULSE 85; RESP 19; O2SAT 98
[2024-09-02 23:37] LABS: Thyroid Stimulating Hormone 1.84 uIU/mL (0.465-4.68)
[2024-09-02 23:45] VITALS: BP 128/89; PULSE 88; RESP 14; O2SAT 99
[2024-09-02] MEDS: IOPAMIDOL-370 (76%);100ML BOTTLE 75 ML IV (23:46)
[2024-09-02] MEDS: SODIUM CHLORIDE 0.9% 10ML SYR (RAD ONLY) 10 ML IV (23:47)
[2024-09-03] VITALS (10 sets, daily range): BP systolic 121–154; BP diastolic 77–102; PULSE 72–90; RESP 16–19; TEMP 36.6–36.8; O2SAT 18–99; BMI 33.8; BMI 34.0
[2024-09-03] MEDS: ONDANSETRON 4MG/2ML VIAL 4 MG IV (00:51)
--- NOTE | 2024-09-03 02:14 | PC.NURSE ---
Patient arrived to floor via wheelchair from ED at 02:08.
--- NOTE | 2024-09-03 02:36 | EXP.HP ---
History of Present Illness *Admission Date: 09/03/24 *Reason for visit:: Intermittent uncontrolled hypertension with tachycardia and now left flank *History of present illness: This patient who used to see Dr. Madrigal before she retired has not seen a provider for 5 years, she does have an appointment with a new PCP Dr. Malik on the . She did come into the emergency room yesterday due to left flank pain extremely high blood pressure elevated heart rate. Patient was initiated with an antibiotic and then returned to the emergency room and was treated and blood pressure heart rate eventually came down patient was relieved. She comes back today with the same thing still having some left flank pain and yesterday CT scan did not find anything no signs of kidney stone. But her blood pressure is quite elevated once again and heart rate is elevated again.. Lab work has been sent out to rule out pheochromocytoma, that may be positional. And patient's past history was seen for similar things once in this ER in October. Patient's past medical history is significant for the fact as a child she fell from a bed and had to have some form of brain surgery done., This event left her with seizures for quite some time. 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 She noted she had not had a seizure since. She notes that she does have headaches on a regular basis and that she is always remained weaker on her right side. She was once right-handed she is now left-handed. CT scan was repeated upon this return to the emergency room, there was no acute findings. Due to the return into the emergency room with the same condition unknown cause we will admit her to the floor, have her evaluated by cardiology., Then will consider further scanning of the lungs to rule out a adrenal tumor in the lungs. Also questioning whether there may be some event in the brain that is causing blood pressure/heart rate compensations such as pressure upon the pituitary. If unable to find an answer to these questions this may have to be pursued further. Also noting she was treated with antibiotics for the urinary tract infection but today the UA is normal, still continues with some left flank pain but cannot reproduce this except may be through deep palpation she says she feels some of that into the left upper quadrant of the abdomen there is no flank pain . [facility] Disclaimer: The information contained in this section may have been updated after the patient was seen, as this information can be updated by other users. 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 History of LEEP (loop electrosurgical excision procedure) of cervix complicating Nausea and vomiting during Tobacco smoking affecting in first trimester Seizures section wound complication Brain injury Surgical History (Updated 09/03/24 @ 03:05 by Eric Valle APRN) deliv NOS-unsp Status post tubal ligation Previous section Family History Other Family history of arthritis Family history of lung cancer Social History Smoking Status: Never smoker alcohol intake: never substance use type: denies use current occupational status: employed Travel in the last 8 weeks: None Other Medical History Have you received the Flu Vaccine for this season: Yes Have you received the Pneumonia Vaccine: Yes Review of Systems Review of Systems Review of systems:: pertinent systems reviewed and negative unless documented below Constitutional Constitutional: Reports as per HPI Eyes Eyes: Reports as per HPI Comments: Denies any vision changes ENT Ears, Nose, Mouth, and Throat: Reports as per HPI *Cardiovascular Comments: Denies any chest pain or cardiac symptoms *Respiratory Respiratory: Reports as per HPI Comments: Denies any shortness of breath *Gastrointestinal Gastrointestinal: Reports as per HPI and Reports abdominal pain *Genitourinary Genitourinary: Reports as per HPI Comments: Patient states she has regular menstrual cycles still no difficulty with urination *Musculoskeletal Musculoskeletal: Reports as per HPI and Reports muscle weakness Comments: Right side is weaker than left side possibly related to head injury as child Integumentary/Breasts Skin/Breast: Reports as per HPI *Neurologic Neurologic: Reports as per HPI Psychiatric Psychiatric: Reports as per HPI Endocrine Endocrine: Reports as per HPI Hematologic/Lymphatic Hematologic/Lymphatic: Reports as per HPI Allergic/Immunologic Allergic/Immunologic: Reports as per HPI Meds Home Medications and Allergies Home Medications ?Medication ?Instructions ?Recorded ?Confirmed ?Type epinephrine 0.3 mg/0.3 mL 0.3 mg (0.3 mL) IM Q10M PRN 09/01/24 09/03/24 Rx injection, auto-injector anaphylaxis #2 ea ketorolac 10 mg tablet 10 mg PO Q8H PRN pain 3 days #12 09/01/24 09/03/24 Rx tabs ondansetron 4 mg disintegrating 4 mg PO Q8H PRN nausea and 09/01/24 09/03/24 Rx tablet vomiting 4 days #12 tabs carvedilol 3.125 mg tablet 3.125 mg PO BID 30 days #60 tabs 09/03/24 Rx New Prescriptions to Start Prescriptions: carvedilol Niko Will Allergies Allergy/AdvReac Type Severity Reaction Status Date / Time cefdinir Allergy Severe Anaphylaxis Verified 09/02/24 00:42 Penicillins Allergy Verified 09/02/24 00:42 Exam Data for Last 24 hours Vital signs and Labs for Last 24 Hours: Temp Pulse Resp BP Pulse Ox O2 Del Method 97.8 F 79 16 154/102 H 97 Room Air 09/03/24 02:00 09/03/24 02:00 09/03/24 02:00 09/03/24 02:00 09/03/24 02:00 09/03/24 02:00 Laboratory Results - last 24 hr 09/02/24 22:35: WBC 8.7, RBC 4.49, Hgb 14.3, Hct 40.4, MCV 89.9, MCH 31.9 H, MCHC 35.4, RDW 13.1, Plt Count 274, MPV 7.7, Neut % (Auto) 59.6, Lymph % (Auto) 33.8, [place] % (Auto) 4.8, Eos % (Auto) 0.9, Baso % (Auto) 0.9, Neut # (Auto) 5.2, Lymph # (Auto) 3.0, [place] # (Auto) 0.4, Eos # (Auto) 0.1, Baso # (Auto) 0.1, Sodium 140, Potassium 3.5, Chloride 105, Carbon Dioxide 24, Anion Gap 14.5, BUN 12 D, Creatinine 0.60, Estimated Creat Clear 165, Estimated GFR 111, Est GFR ( Amer) 134, Glucose 130 H, Calcium 9.4, Total Bilirubin 0.7, AST 27, ALT 18, Alkaline Phosphatase 80, Total Protein 8.2, Albumin 4.7, Globulin 3.5 H, Albumin/Globulin Ratio 1.3, TSH 1.84, Thyroxine (T4) 9.9 09/02/24 23:00: Urine Color Yellow, Urine Appearance Clear, Urine pH 6.0, Ur Specific [place] <= 1.005, Urine Protein Negative, Urine Glucose (UA) Negative, Urine Ketones Negative, Urine Blood 1+ A, Urine Nitrate Negative, Urine Bilirubin Negative, Urine Urobilinogen 0.2, Ur Leukocyte Esterase Negative, Urine RBC 3-5, Urine WBC Occasional, Ur Squamous Epith Cells 10-20, Urine Bacteria 1+, Urine Yeast Occasional I & O for Last 24 hours: Intake & Output 08/31/24 09/01/24 09/02/24 09/03/24 23:59 23:59 23:59 23:59 Weight 83.915 kg 83.971 kg Radiology Reports for the Last 24 Hours: CT scan reviewed of abdomen no abnormal findings Constitutional Constitutional: mild distress and obese *Routine HEENT Exam Head: Present normocephalic and atraumatic Eye: Present EOMI, PERRL and normal accommodation ENT: Present mucous membranes moist *Routine Neck Exam Neck: Present supple and full ROM Routine Chest/Breast/Axilla Exam Comments: No chest wall tenderness expressed or found on exam *Routine Respiratory Exam Respiratory: Present CTA bilaterally, normal respiratory effort, able to speak in complete sentences and symmetric chest movement *Routine Cardiovascular Exam Cardiovascular: Present RRR, Normal S1 and Normal S2 Comments: No peripheral edema found *Routine Abdominal Exam Abdominal: Present soft and normoactive bowel sounds Comments: Abdominal exam found that the abdomen was soft in all quadrants left upper quadrant with deep palpation some minor pain, *Routine Rectal Exam Rectal:: deferred *Routine Genitalia Exam Genitalia:: deferred *Routine Extremities Exam Extremities: Present full ROM and normal capillary refill Routine Back/Spine/Pelvis Exam Back/Spine: Present full ROM Comments: Patient able to sit up and move no significant back pain found *Routine Skin Exam Skin: Present intact, dry, warm and normal turgor *Routine Neurological Exam Neurological: Present alert, oriented X3, CN II-XII intact and normal reflexes Routine Psychiatric Exam Psychiatric: Present normal affect and normal thought process H&P: Result Impressions 1. Episodic hypertension with tachycardia, 2. Left flank pain 3. Generalized headache Imaging and Cardiology CT scan - abdomen: Additional comments: Reviewed the films and agree with the written report that there is no acute finding Assessment and Plan *Assessment and plan (1) Hypertension: Status: Acute Qualifiers: Hypertension type: resistant hypertension Qualified Code(s): I1A.0 - Resistant hypertension Category: Medical Code(s): I10 - Essential (primary) hypertension (2) Tachycardia: Status: Acute Category: Medical Code(s): R00.0 - Tachycardia, unspecified (3) Acute left flank pain: Status: Acute Category: Medical Code(s): R10.9 - Unspecified abdominal pain (4) Hematuria: Status: Acute Qualifiers: Hematuria type: asymptomatic microscopic Qualified Code(s): R31.21 - Asymptomatic microscopic hematuria Category: Medical Code(s): R31.9 - Hematuria, unspecified Plan Discussion with ER physician given repeat presentation, and concern for unexplained hypertension and tachycardia along with flushing. Requested admission for observation. Medicine agreed to admit. Problems addressed as follows: 1. For the hypertension and tachycardia, plan to admit and have cardiology see the patient.. Will continue with any follow-up to make sure this is not a adrenal gland tumor. Or there is any complication from a childhood brain injury causing a cardiac response, will use medication as needed to keep the patient's blood pressure lower tonight. Plan to refer to specialist if needed if unable to find cause for this intermittent, hypertension and tachycardia may consider further testing of there are scanning of brain and lungs to make sure there is not a separate tumor. . 2. ,Left flank pain with some hematuria does not appear to be any type of kidney stone or infection at this time , we will continue to draw labs are test as needed if the abdominal pain was to become increased. Rounded on patient after nurse practitioner. Personally examined and interviewed patient. Agree with exam findings and care plan as documented. Reviewed abdominal CT, no adrenal lesions per my review. Exam otherwise benign. White count normal, kidney function normal with BUN 12, creatinine 0.6. No electrolyte disturbances. Repeat CBC, CMP, magnesium ordered for the morning.
[2024-09-03 02:56] LABS: Troponin I < 0.01 ng/ml (0.00-0.034)
--- NOTE | 2024-09-03 04:18 | PC.NURSE ---
Patient arrived to floor via stretcher from ED at 04:15.
[2024-09-03 05:20] LABS: Basophils # 0.1 K/mm3 (0-0.2); Basophils % 1.2 % (0.1-2.0); Eosinophils % 0.4 % (0.1-12.0); Hematocrit 38.3 % (37.0-47.0); Hemoglobin 13.3 g/dL (12.2-16.2); Lymphocytes # 2.8 K/mm3 (0.7-4.5); Lymphocytes % 41.3 % (10-50); Mean Corpuscular HGB Conc 34.6 g/dL (31.8-35.4); Mean Corpuscular Hemoglobin 31.4 pg (27.0-31.2); Mean Corpuscular Volume 90.8 fl (81-99); Mean Platelet Volume 7.8 fl (7.4-10.4); Monocytes # 0.4 K/mm3 (0.1-1.0); Monocytes % 5.3 % (1.7-9.3); Neutrophils # 3.6 K/mm3 (1.8-7.8); Neutrophils % 51.9 % (37.0-80.0); Platelet Count 241 K/mm3 (142-424); Red Blood Count 4.22 M/mm3 (4.20-5.40); Red Cell Distribution Width 13.1 % (11.5-17.5); White Blood Count 6.9 K/mm3 (4.8-10.8)
[2024-09-03 05:34] LABS: Alanine Aminotransferase 13 U/L (12-78); Albumin/Globulin Ratio 1.5 (1.1-1.8); Alkaline Phosphatase 68 U/L (38-126); Anion Gap 11.6 mEq/L (5-15); Aspartate Amino Transferase 19 U/L (14-36); Bilirubin,Total 0.7 mg/dl (0.2-1.3); Blood Urea Nitrogen 8 mg/dl (7-17); Calcium 8.9 mg/dl (8.4-10.2); Carbon Dioxide 26 mmol/L (22.0-30.0); Chloride 106 mmol/L (98-107); Creatinine Clearance Estimated 165 mL/min (50-200); Estimated Glomerular Filt Rate 111 ml/min (>60); GFR (African American) 134 ML/MIN (>60); Globulin 2.6 g/dL (1.3-3.2); Glucose 94 mg/dl (74-100); Magnesium 1.6 mg/dl (1.6-2.3); Potassium 3.6 mmoL/L (3.5-5.1); Sodium 140 mmol/L (136-145); Total Protein,Serum 6.6 g/dl (6.3-8.2)
[2024-09-03 05:46] LABS: Troponin I < 0.01 ng/ml (0.00-0.034)
--- NOTE | 2024-09-03 07:01 | P.DS_ITS ---
General Admission date:: 09/03/24 Discharge date: 09/03/24 HPI HPI HPI: This patient who used to see Dr. Madrigal before she retired has not seen a provider for 5 years, she does have an appointment with a new PCP Dr. Malik on the . She did come into the emergency room yesterday due to left flank pain extremely high blood pressure elevated heart rate. Patient was initiated with an antibiotic and then returned to the emergency room and was treated and blood pressure heart rate eventually came down patient was relieved. She comes back today with the same thing still having some left flank pain and yesterday CT scan did not find anything no signs of kidney stone. But her blood pressure is quite elevated once again and heart rate is elevated again.. Lab work has been sent out to rule out pheochromocytoma, that may be positional. And patient's past history was seen for similar things once in this ER in October. Patient's past medical history is significant for the fact as a child she fell from a bed and had to have some form of brain surgery done., This event left her with seizures for quite some time. 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 She noted she had not had a seizure since. She notes that she does have headaches on a regular basis and that she is always remained weaker on her right side. She was once right-handed she is now left-handed. CT scan was repeated upon this return to the emergency room, there was no acute findings. Due to the return into the emergency room with the same condition unknown cause we will admit her to the floor, have her evaluated by cardiology., Then will consider further scanning of the lungs to rule out a adrenal tumor in the lungs. Also questioning whether there may be some event in the brain that is causing blood pressure/heart rate compensations such as pressure upon the pituitary. If unable to find an answer to these questions this may have to be pursued further. Also noting she was treated with antibiotics for the urinary tract infection but today the UA is normal, still continues with some left flank pain but cannot reproduce this except may be through deep palpation she says she feels some of that into the left upper quadrant of the abdomen there is no flank pain. Hospital Course Hospital Course Hospital Course: 3-year-old female admitted for hypertension, headaches, flushing. Unclear etiology. Blood pressure much better by morning however. Observed overnight. Labs remain normal. Seems to be some concern from the ER for possible pheochromocytoma. Though this would be a rare occurrence, offered reassurance to patient. Will screen with 24-hour urine metanephrines. Provided with order and urine collection jug at discharge. Stable to discharge home on low-dose carvedilol for blood pressure and heart rate control. Suspect she is developing hypertension and had symptoms secondary to adverse reaction to medication. There is no clear indication to continue antibiotics at this time. Will discontinue cefdinir. Stable discharge home with plan for follow-up with PCP this week. Blood pressure and heart rate normal on discharge at 121/77 with heart rate of 75. In regard to her hematuria, recommend repeat urinalysis in the coming week to evaluate for resolution. May necessitate referral to urology for further workup and management Exam Data for Last 24 hours Vital signs and Labs for Last 24 Hours: Temp Pulse Resp BP Pulse Ox O2 Del Method 98.2 F 80 16 133/77 97 Room Air 09/03/24 03:42 09/03/24 04:00 09/03/24 03:42 09/03/24 03:42 09/03/24 03:42 09/03/24 05:00 Laboratory Results - last 24 hr 09/02/24 22:35: WBC 8.7, RBC 4.49, Hgb 14.3, Hct 40.4, MCV 89.9, MCH 31.9 H, MCHC 35.4, RDW 13.1, Plt Count 274, MPV 7.7, Neut % (Auto) 59.6, Lymph % (Auto) 33.8, [place] % (Auto) 4.8, Eos % (Auto) 0.9, Baso % (Auto) 0.9, Neut # (Auto) 5.2, Lymph # (Auto) 3.0, [place] # (Auto) 0.4, Eos # (Auto) 0.1, Baso # (Auto) 0.1, Sodium 140, Potassium 3.5, Chloride 105, Carbon Dioxide 24, Anion Gap 14.5, BUN 12 D, Creatinine 0.60, Estimated Creat Clear 165, Estimated GFR 111, Est GFR ( Amer) 134, Glucose 130 H, Calcium 9.4, Total Bilirubin 0.7, AST 27, ALT 18, Alkaline Phosphatase 80, Troponin I < 0.01, Total Protein 8.2, Albumin 4.7, Globulin 3.5 H, Albumin/Globulin Ratio 1.3, TSH 1.84, Thyroxine (T4) 9.9 09/02/24 23:00: Urine Color Yellow, Urine Appearance Clear, Urine pH 6.0, Ur Specific [place] <= 1.005, Urine Protein Negative, Urine Glucose (UA) Negative, Urine Ketones Negative, Urine Blood 1+ A, Urine Nitrate Negative, Urine Bilirubin Negative, Urine Urobilinogen 0.2, Ur Leukocyte Esterase Negative, Urine RBC 3-5, Urine WBC Occasional, Ur Squamous Epith Cells 10-20, Urine Bacteria 1+, Urine Yeast Occasional 09/03/24 05:07: WBC 6.9, RBC 4.22, Hgb 13.3, Hct 38.3, MCV 90.8, MCH 31.4 H, MCHC 34.6, RDW 13.1, Plt Count 241, MPV 7.8, Neut % (Auto) 51.9, Lymph % (Auto) 41.3, [place] % (Auto) 5.3, Eos % (Auto) 0.4, Baso % (Auto) 1.2, Neut # (Auto) 3.6, Lymph # (Auto) 2.8, [place] # (Auto) 0.4, Eos # (Auto) 0.0, Baso # (Auto) 0.1, Sodium 140, Potassium 3.6, Chloride 106, Carbon Dioxide 26, Anion Gap 11.6, BUN 8 D, Creatinine 0.60, Estimated Creat Clear 165, Estimated GFR 111, Est GFR ( Amer) 134, Glucose 94 D, Calcium 8.9, Magnesium 1.6, Total Bilirubin 0.7, AST 19 D, ALT 13 D, Alkaline Phosphatase 68, Troponin I < 0.01, Total Protein 6.6, Albumin 4.0 D, Globulin 2.6, Albumin/Globulin Ratio 1.5 I & O for Last 24 hours: Intake & Output 08/31/24 09/01/24 09/02/24 09/03/24 23:59 23:59 23:59 23:59 Weight 83.915 kg 83.971 kg Constitutional Constitutional: no acute distress, obese and cooperative *Routine HEENT Exam Head: Present normocephalic Eye: Present EOMI and PERRL ENT: Present mucous membranes moist *Routine Neck Exam Neck: Present supple; Absent lymphadenopathy *Routine Respiratory Exam Respiratory: Present CTA bilaterally; Absent respiratory distress, rhonchi, wheezes or crackles *Routine Cardiovascular Exam Cardiovascular: Present RRR *Routine Abdominal Exam Abdominal: Present soft and normoactive bowel sounds; Absent tenderness *Routine Rectal Exam Patient deferred: visual exam *Routine Exam Patient deferred: external exam *Routine Extremities Exam Extremities: Absent cyanosis, clubbing or edema Comments: Calf tight, unable to dorsiflex right foot past 90 degrees *Routine Skin Exam Skin: Present warm; Absent rash *Routine Neurological Exam Neurological: Present alert, oriented X3 and moving all extremities; Absent altered mental status Results Data Completed and Pending Labs on day of discharge: Labs from last 24 hours 09/03/24 09/02/24 09/02/24 05:07 23:00 22:35 WBC 6.9 8.7 RBC 4.22 4.49 Hgb 13.3 14.3 Hct 38.3 40.4 MCV 90.8 89.9 MCH 31.4 H 31.9 H MCHC 34.6 35.4 RDW 13.1 13.1 Plt Count 241 274 MPV 7.8 7.7 Neut % (Auto) 51.9 59.6 Lymph % (Auto) 41.3 33.8 [place] % (Auto) 5.3 4.8 Eos % (Auto) 0.4 0.9 Baso % (Auto) 1.2 0.9 Neut # (Auto) 3.6 5.2 Lymph # (Auto) 2.8 3.0 [place] # (Auto) 0.4 0.4 Eos # (Auto) 0.0 0.1 Baso # (Auto) 0.1 0.1 Sodium 140 140 Potassium 3.6 3.5 Chloride 106 105 Carbon Dioxide 26 24 Anion Gap 11.6 14.5 BUN 8 D 12 D Creatinine 0.60 0.60 Estimated Creat Clear 165 165 Estimated GFR 111 111 Est GFR ( Amer) 134 134 Glucose 94 D 130 H Calcium 8.9 9.4 Magnesium 1.6 Total Bilirubin 0.7 0.7 AST 19 D 27 ALT 13 D 18 Alkaline Phosphatase 68 80 Troponin I < 0.01 < 0.01 Total Protein 6.6 8.2 Albumin 4.0 D 4.7 Globulin 2.6 3.5 H Albumin/Globulin Ratio 1.5 1.3 TSH 1.84 Thyroxine (T4) 9.9 Urine Color Yellow Urine Appearance Clear Urine pH 6.0 Ur Specific [place] <= 1.005 Urine Protein Negative Urine Glucose (UA) Negative Urine Ketones Negative Urine Blood 1+ A Urine Nitrate Negative Urine Bilirubin Negative Urine Urobilinogen 0.2 Ur Leukocyte Esterase Negative Urine RBC 3-5 Urine WBC Occasional Ur Squamous Epith Cells 10-20 Urine Bacteria 1+ Urine Yeast Occasional DS: Diagnosis Discharge Diagnosis (1) Hypertension: Status: Acute Code(s): I10 - Essential (primary) hypertension Qualifiers: Hypertension type: resistant hypertension Qualified Code(s): I1A.0 - Resistant hypertension (2) Tachycardia: Status: Acute Code(s): R00.0 - Tachycardia, unspecified (3) Acute left flank pain: Status: Acute Code(s): R10.9 - Unspecified abdominal pain (4) Hematuria: Status: Acute Code(s): R31.9 - Hematuria, unspecified Qualifiers: Hematuria type: asymptomatic microscopic Qualified Code(s): R31.21 - Asymptomatic microscopic hematuria Meds Home Medications and Allergies Home Medications ?Medication ?Instructions ?Recorded ?Confirmed ?Type epinephrine 0.3 mg/0.3 mL 0.3 mg (0.3 mL) IM Q10M PRN 09/01/24 09/03/24 Rx injection, auto-injector anaphylaxis #2 ea ketorolac 10 mg tablet 10 mg PO Q8H PRN pain 3 days #12 09/01/24 09/03/24 Rx tabs ondansetron 4 mg disintegrating 4 mg PO Q8H PRN nausea and 09/01/24 09/03/24 Rx tablet vomiting 4 days #12 tabs carvedilol 3.125 mg tablet 3.125 mg PO BID 30 days #60 tabs 09/03/24 Rx New Prescriptions to Start Prescriptions: carvedilol Niko Will Allergies Allergy/AdvReac Type Severity Reaction Status Date / Time cefdinir Allergy Severe Anaphylaxis Verified 09/02/24 00:42 Penicillins Allergy Verified 09/02/24 00:42 Discharge Plan Disposition Patient Disposition: Home, Self-Care Condition: Good Follow up Plan Follow up with: Dinesh Madrigal [Primary Care Provider] - Enter time for follow up (has an appt on Thursday) Prescriptions/Medication Reconciliation: New carvedilol 3.125 mg Tablet 3.125 mg PO BID 30 Days Qty: 60 0RF Continued ketorolac 10 mg tablet 10 mg PO Q8H PRN (Reason: pain) 3 Days Qty: 12 0RF ondansetron 4 mg tablet,disintegrating 4 mg PO Q8H PRN (Reason: nausea and vomiting) 4 Days Qty: 12 0RF epinephrine 0.3 mg/0.3 mL auto-injector 0.3 mg IM Q10M PRN (Reason: anaphylaxis) Qty: 2 0RF Rx Instructions: for 2 doses Discontinued ciprofloxacin HCl 500 mg Tablet 500 mg PO BID Problem Reconciliation Problems Reviewed?: Yes Patient Discharge Instructions ACTIVITY: Continue current activity DIET: continue same diet Patient Instructions: High Blood Pressure, DI for Tachycardia, DI for Nausea -- Adult Print Language: Portuguese Providers Primary Care Provider: Dinesh Madrigal Admit Provider: Niko Will Attending Provider: Niko Will
[2024-09-03] MEDS: ACETAMINOPHEN 325MG TAB 650 MG PO (08:09)
[2024-09-03 08:42] LABS: Troponin I < 0.01 ng/ml (0.00-0.034)
[2024-09-03] MEDS: CARVEDILOL 3.125MG TABLET 3.125 MG PO (08:44)
[2024-09-03] MEDS: ENOXAPARIN 40MG/0.4ML SYRINGE 40 MG SUBCUT (08:44)
[2024-09-03] MEDS: SENNOSIDES 8.6MG/DOCUSATE 50MG TABLET 2 TAB PO (08:44)
--- NOTE | 2024-09-05 14:09 | CARE MANAGER ---
Contacted patient related to hospital discharge. She states she still has some pain, but is better. She followed up with PCP today and they changed her Carvedilol to PRN. She denies any questions or concerns. GRIFFIN Cantu
== END 2024-09-03 10:52 | disposition home or self-care (01) ==
LOC: ER 09-03 01:48 → 2ND 09-03 02:10
PROVIDERS: Emergency Medicine; Nurse Practitioner Family; Admitting Provider Internal Medicine Adolescent Medicine; Emergency Provider Emergency Medicine; PCP Internal Medicine; Visit Provider Internal Medicine Adolescent Medicine
DX: I1A.0 Resistant hypertension (principal); R31.21 Asymptomatic microscopic hematuria; R00.0 Tachycardia, unspecified; R10.9 Unspecified abdominal pain
CPT/HCPCS: 36415; 74177; 80053; 81001; 83735; 83835; 84436; 84443; 84484; 85025; 93005; 99285; G0378; J1650; J2405; Q9967

== ENCOUNTER 2024-09-05 14:23 | Outpatient (CLI) | payer OTHER, SELFPAY ==
[2024-09-12 05:07] LABS: Metanephrine, U,24hr 79 ug/24 hr (36-209); Metanephrine, Ur 102 ug/L (Undefined); Normetanephr.,U,24h 137 ug/24 hr (131-612); Normetanephrine, Ur 178 ug/L (Undefined)
== END 2024-09-05 23:59 | disposition home or self-care (01) ==
LOC: LAB 14:23
PROVIDERS: PCP Internal Medicine; Visit Provider Internal Medicine Adolescent Medicine
DX: I10 Essential (primary) hypertension (principal); Z72.0 Tobacco use
CPT/HCPCS: 83835

== ENCOUNTER 2024-09-29 07:11 | Outpatient (CLI) | payer OTHER, SELFPAY ==
--- NOTE | 2024-09-29 07:15 | CT_ITS ---
APPROVED REPORT [employer]: CLINICAL INDICATION Chest Pain TECHNIQUE Image Acquisition: A 128 slice MDCT scanner (iRisea View) was used for data acquisition. A noncontrast coronary calcium scan was performed. A CT attenuation threshold of 130 Hounsfield units (HU) was used for the detection of calcium in contiguous voxels of 1 sq mm in area to be counted as individual lesions. Bolus tracking in the ascending aorta with a threshold of 180 HU was performed. Immediately afterwards, ECG synchronized cardiac CT was then performed from the cardiac base to apex using retrospective gating with ECG tube current modulation. A total of 85 mL of Isovue 370 mg/mL contrast medium was administered at 5 mL/sec followed by a saline flush using a biphasic injection protocol. A tube voltage of 120 KVp was used. The patient received the following medications prior to the cardiac CT. 75 mg of oral metoprolol 15 mg of oral ivabradine 0.8 mg of sublingual nitroglycerin The average heart rate at the time of acquisition was 67 bpm and regular. Image Reconstruction Transaxial images were reconstructed at 0.67 mm slide thickness. Data was reviewed interactively on an advanced workstation capable of 2 and 3-dimensional displays in all conventional reconstruction formats, including multiplanar reformations, maximum intensity projections, curved multiplanar reformations, and volume rendered reconstructions. When applicable, selected routine images describing the relevant coronary anatomy and pathology were saved and sent to PACS. Complications None Technical Quality Overall image quality was good. Coronary artery opacification was adequate. Total DLP (Dose-Length Product) is 1238.3 mGy-cm. The reported value represents the total of one or more individual components during the CT acquisition of this date and at this time, and as such, the same value may appear in more than one CT report depending on the interpreting/reporting physicians. COMPARISON None FINDINGS CT Coronary Calcium Scoring LMA (Left Main Artery) = 0 LAD (Left Anterior Descending) = 0 LCX (Left Coronary Circumflex) = 0 RCA (Right Coronary Artery) = 0 Total Calcium Score = 0 using the AJ-130 method. The interpretation of the calcium heart score is based on the following continuum*: 0 = no calcified plaque detected (risk of coronary artery disease is very low ??? less than 5%) 1-10 = calcium detected in extremely minimal levels (risk of coronary diseases is still low ??? less than 10%) 11-100 = mild levels of plaque detected with certainty (mild or minimal narrowing of heart arteries is likely) 101-400 = definite,at least moderate levels of plaque detected (relatively high risk of a heart attack within 3-5 years) >401-999 = extensive levels of plaque detected (high risk of heart attack, high levels of vascular disease are present, high likelihood of at least one significant coronary narrowing) *The calcium heart score quantifies the burden of coronary calcification/plaque in the coronary arteries. The calcium heart score is not able to evaluate the presence or burden of non-calcified (i.e. soft) plaque. There is no identifiable calcification in the aortic valve, mitral annulus or mitral valve, pericardium, or myocardium. Coronary CT Angiography The coronary arterial system is right dominant. Quantitative Stenosis Grading: Left Main (LM): The left main originates normally from the left sinus of Valsalva. The LM bifurcates into the left anterior descending artery and left circumflex artery. The LM is patent with no evidence of atherosclerosis. Left Anterior Descending (LAD) and Diagonal Branches: The LAD gives off 3 diagonal branch(es). The LAD and its branches are patent with no evidence of atherosclerosis. There is no evidence of LAD-myocardial bridge. Left Circumflex (LCX) and Obtuse Marginals (OM): The LCX gives off 2 Obtuse Marginal (OM) branch(es). The LCX and its branches are patent with no evidence of atherosclerosis. Right Coronary Artery (RCA): The RCA originates normally from the right sinus of Valsalva. The RCA gives off a posterior descending artery (PDA) and posterolateral (PL) branches. The RCA and its branches are patent with no evidence of atherosclerosis. Non-Coronary Cardiac Findings: Analysis of the left ventricular (LV) structure and function was performed after 3-D reconstruction of the LV from axial images, with user-corrected automatic contouring for assessment of LV volumes and user-defined reconstruction from oblique planes for measurement of 3-D cardiac structure and function. -The left ventricle systolic function is normal. -There is no left atrial appendage filling defect. Two right pulmonary veins and two left pulmonary veins drain normally into the left atrium. -No pericardial thickening or calcification. -Central and branch pulmonary arteries in the [id number] are unremarkable. -Thoracic aorta within the visualized thoracic aortic-branches in the [id number] is unremarkable. Extracardiac Structures No significant extra-cardiac findings. Note, however, that this study is focused on the cardiac findings. IMPRESSION -Absence of coronary calcification with an Agatston score = 0 using the AJ-130 method. -No evidence of significant flow-limiting atherosclerosis of the coronary arteries. -No evidence of myocardial bridges or coronary anomalies. -CAD-RADS 0. Management recommendations per ACC/AHA guidelines*, as clinically appropriate. *Recommendations: CAD RADS 0: Reassurance. Consider non-atherosclerotic causes of chest pain. CAD RADS 1: Consider non-atherosclerotic causes of chest pain. Consider preventive therapy and risk factor modification. CAD RADS 2: Consider non-atherosclerotic causes of chest pain. Consider preventive therapy and risk factor modification, particularly for patients with nonobstructive plaque in multiple segments. CAD RADS 3: Consider further functional testing. Consider symptom-guided anti-ischemic and preventive pharmacotherapy as well as risk factor modification per published guideline statements. CAD RADS 4A: Consider further functional testing or invasive coronary angiography with revascularization per published guideline statements. Consider symptom-guided anti-ischemic and preventive pharmacotherapy as well as risk factor modification per published guideline statements. CAD RADS 4B: Invasive coronary angiography recommended with revascularization per published guideline statements. Consider symptom-guided anti-ischemic and preventive pharmacotherapy as well as risk factor modification per published guideline statements. CAD RADS 5: Consider invasive angiography and/or viability assessment with revascularization per published guideline statements. Consider symptom-guided anti-ischemic and preventive pharmacotherapy as well as risk factor modification per published guideline statements. CRITICAL RESULT None COMMUNICATION Per this written report The coronary and cardiac findings of this CCTA were reviewed, reported, and signed by Roderick Holguin MD (Sample Card Maker) Conclusion Electronically signed by : Janeen Holguin MD 10/02/2024 23:33:42
--- NOTE | 2024-09-29 07:15 | CA_ITS ---
APPROVED REPORT EXAM: Comprehensive 2D, Doppler, and color-flow Echocardiogram Barrel Inspector: Sandee Knott RT(R) Ht: 5 ft 2 in Wt: 185lbs BSA: 1.85 BP: 156/88 mmHg Indications: CP, abn EKG, dizziness, ex smoker, HTN. 2D Dimensions Left Atrium 3.16 cm F: 2.7 - 3.8 LA Volume 24.40 mL LVOT 1.91 cm (M/F) 1.5-2.5 LA Volume Index 13.19 mL/m2 (M/F) 16-34 EF AP4 50.80 % GL Strain -21.2 % M-Mode Dimensions RVDd 2.54 cm (0.9-2.6) LVDd 4.18 cm (3.5-5.7) Ao Diam 2.40 cm (2.0-3.7) LVDs 3.08 cm (3.5-5.7) IVSd 0.75 cm (0.6-1.1) PWd 0.64 cm (0.6-1.1) EF (Teich) 52.00% FS 26.30% EDV (Teich) 77.70 mL ESV (Teich) 37.30 mL LV Diastology E Decel Time 150 (160-240 msec) E/A Ratio 1.7 MED E' 9.9 (>= 7 cm/sec) E'/MED E' Ratio 9.94 (<= 14) LAT E' 11.9 (>= 10 cm/sec) E/LAT E' Ratio 8.27 (<= 14) Mitral Valve MV E Max Lewis. 98.0 (40-130 cm/s) MV A Velocity 57.0 (40-130 cm/s) E/A Ratio 1.73 MV Decel. Time 150 (160-240 ms) Left Ventricle The left ventricle is normal size. The left ventricular systolic function is normal. The left ventricular ejection fraction is within the normal range. There is normal left ventricular wall thickness. There is normal LV segmental wall motion. The left ventricular diastolic function is normal. LVEF is 55%. Right Ventricle Right ventricle is mildly dilated. The right ventricular systolic function is normal. Atria The left atrium size is normal. The right atrium size is normal. There is no Doppler evidence of interatrial shunt. Aortic Valve The aortic valve opens well. There is no aortic valvular stenosis. Mild aortic regurgitation. Mitral Valve The mitral valve is normal in structure. No evidence of mitral valve stenosis. Mild mitral regurgitation. Tricuspid Valve The tricuspid valve leaflets are thin and pliable. Trace tricuspid regurgitation. There is insufficient TR jet to estimate RVSP. Pulmonic Valve The pulmonary valve is normal in structure. Trace pulmonic regurgitation. Great Vessels The aortic root is normal in size. The ascending aorta is normal in size. IVC is normal in size and collapses >50% with inspiration. Pericardium There is no pericardial effusion. Other Information Study Quality: Fair Conclusion Normal biventricular systolic function. Mild AI, mild MR. Electronically signed by : Janeen Holguin MD 10/04/2024 23:41:02
[2024-09-29 07:23] VITALS: BMI 32.9
[2024-09-29 07:31] VITALS: BP 135/88; PULSE 89; RESP 18; TEMP 36.5; O2SAT 100
[2024-09-29 07:38] LABS: Urine Pregnancy, HCG Qual. Negative (Negative)
[2024-09-29] MEDS: IVABRADINE HCL 7.5MG TABLET PO (07:53)
[2024-09-29] MEDS: METOPROLOL TARTRATE 50MG TABLET PO (07:53)
[2024-09-29 09:32] VITALS: BP 135/97; PULSE 65; RESP 18; O2SAT 99
[2024-09-29] MEDS: NITROGLYCERIN 0.4MG SL TABLET SL (09:32)
[2024-09-29 09:35] VITALS: BP 116/72; PULSE 62; RESP 18; O2SAT 99
[2024-09-29 09:38] VITALS: BP 110/70; PULSE 60; RESP 20; O2SAT 97
[2024-09-29 09:41] VITALS: BP 113/73; PULSE 57; RESP 20; O2SAT 97
[2024-09-29] MEDS: 0.9 % SODIUM CHLORIDE 50 ML VIAL IV (09:48)
[2024-09-29] MEDS: IOPAMIDOL-370 (76%);100ML BOTTLE 85 ML IV (09:48)
[2024-09-29] MEDS: SODIUM CHLORIDE 0.9% 10ML SYR (RAD ONLY) 10 ML IV (09:48)
== END 2024-09-29 10:00 | disposition home or self-care (01) ==
PROVIDERS: PCP Internal Medicine; Visit Provider Internal Medicine
DX: R94.31 Abnormal electrocardiogram [ECG] [EKG] (principal); I1A.0 Resistant hypertension
CPT/HCPCS: 75574; 81025; 93306; Q9967

== ENCOUNTER 2025-01-03 07:15 | Outpatient (CLI) | payer OTHER, SELFPAY ==
[2025-01-03 07:21] LABS: Microscopic, Urine URINE MICROSCOPIC (MICROSCOPIC)
[2025-01-03 08:12] LABS: Appearance,Urine Clear (Clear); Color,Urine Yellow (Yellow); PH,Urine 5.5 (5.0-8.5)
[2025-01-03 08:13] LABS: Bacteria,Urine Trace /lpf; Bilirubin,Urine Negative (Negative); Blood, Urine Negative (Negative); Glucose,Urine (UA) Negative (Negative); Ketones,Urine Trace (Negative); Leukocyte Esterase,Urine Negative (Negative); Nitrate,Urine Negative (Negative); Protein,Urine Negative (Negative); RBC,Urine Occasional #/hpf (0-3); Urobilinogen,Urine 0.2 EU/dl (0.2); WBC,Urine Occasional #/hpf (0-3)
[2025-01-03 08:34] LABS: Alanine Aminotransferase 19 U/L (12-78); Albumin Level 5.1 g/dl (3.5-5.0); Albumin/Globulin Ratio 2.2 (1.1-1.8); Alkaline Phosphatase 90 U/L (38-126); Anion Gap 13.7 mEq/L (5-15); Aspartate Amino Transferase 25 U/L (14-36); Bilirubin,Total 0.4 mg/dl (0.2-1.3); Blood Urea Nitrogen 17 mg/dl (7-17); Calcium 9.7 mg/dl (8.4-10.2); Carbon Dioxide 21 mmol/L (22.0-30.0); Chloride 107 mmol/L (98-107); Chol/HDL Ratio 4.8 (1-3.5); Cholesterol 153 mg/dl (140-200); Estimated Glomerular Filt Rate 111 ml/min (>60); GFR (African American) 134 ML/MIN (>60); Globulin 2.3 g/dL (1.3-3.2); Glucose 99 mg/dl (74-100); HDL Cholesterol 32 mg/dl (40-60); Potassium 3.7 mmoL/L (3.5-5.1); Sodium 138 mmol/L (136-145); Total Protein,Serum 7.4 g/dl (6.3-8.2); Triglycerides 208 mg/dl (30-150); VLDL Cholesterol 42 mg/dL (0-40)
[2025-01-03 08:45] LABS: Direct LDL Cholesterol 84.17 mg/dL (100-129)
[2025-01-03 08:50] LABS: Free T4 (Free Thyroxine) 1.15 ng/dl (0.78-2.19)
[2025-01-03 08:52] LABS: 25-OH Vitamin D, Total 27.4 ng/mL (30-100)
[2025-01-03 09:05] LABS: Thyroid Stimulating Hormone 4.95 uIU/mL (0.465-4.68)
[2025-01-03 11:43] LABS: Hemoglobin A1C 5.1 % (4.0-6.0)
[2025-01-04 10:39] LABS: Hepatitis C Antibody Non Reactive (Non Reactive)
== END 2025-01-03 23:59 | disposition home or self-care (01) ==
LOC: LAB 07:16
PROVIDERS: PCP Internal Medicine; Visit Provider Internal Medicine
DX: R94.6 Abnormal results of thyroid function studies; E78.5 Hyperlipidemia, unspecified; E55.9 Vitamin D deficiency, unspecified; I10 Essential (primary) hypertension; Z13.1 Encounter for screening for diabetes mellitus; Z11.59 Encounter for screening for other viral diseases
CPT/HCPCS: 36415; 80053; 80061; 81001; 82306; 83036; 84439; 84443; 87380

== ENCOUNTER 2025-01-09 16:02 | Outpatient (CLI) | payer OTHER, SELFPAY ==
--- NOTE | 2025-01-09 16:06 | MM_ITS ---
PROCEDURE INFORMATION: Exam: MG Bilateral Screening 3D Mammography Exam date and time: 01/09/2025 4:25 PM Age: 39 years old Clinical indication: Screening examination TECHNIQUE: Imaging protocol: Bilateral Screening tomosynthesis and 2D mammography including computer-aided detection (CAD) when performed. COMPARISON: No relevant prior studies available. FINDINGS: MAMMOGRAPHY: Breast composition: The breasts are heterogeneously dense, which may obscure small masses. Mass: 1.1 cm mass right breast 12 o'clock with obscured margins at middle depth. Architectural distortion: None. Calcifications: No suspicious calcifications. Asymmetric density: None. Skin thickening: None. Axillary adenopathy: None. IMPRESSION: Right breast mass.Recommend right breast diagnostic mammogram including spot compression views of the right breast in the CC and MLO projections, a full 90 degree lateral view, and right breast ultrasound for further evaluation. ASSESSMENT: BI-RADS Category 0: Incomplete- Need Additional Imaging Evaluation.
== END 2025-01-09 23:59 | disposition home or self-care (01) ==
LOC: RAD 16:02
PROVIDERS: PCP Internal Medicine; Visit Provider Internal Medicine
DX: Z12.31 Encounter for screening mammogram for malignant neoplasm of breast (principal); N63.15 Unspecified lump in the right breast, overlapping quadrants
CPT/HCPCS: 77063; 77067

== ENCOUNTER 2025-01-19 12:38 | Outpatient (CLI) | payer OTHER, SELFPAY ==
--- NOTE | 2025-01-19 12:41 | US_ITS ---
PROCEDURE INFORMATION: Exam: US Right Breast, Complete MG Right Diagnostic Breast Tomosynthesis Exam date and time: 01/19/2025 12:53 PM Age: 39 years old Clinical indication: Callback for a right breast partially circumscribed mass. TECHNIQUE: Imaging protocol: Complete ultrasound of all four quadrants of the right breast and the retroareolar regions, including ultrasound of the axilla when performed. Right Diagnostic tomosynthesis and 2D mammography including computer-aided detection (CAD) when performed. Unilateral or bilateral exam. COMPARISON: MG MM DIG SCREENING MAMM BI W/CAD 01/09/2025 4:25 PM FINDINGS: MAMMOGRAPHY: Breast composition: The breast is heterogeneously dense, which may obscure small masses. Breast mammogram findings: At the 12 o'clock axis of the right breast, there is a mostly circumscribed oval mass measuring 1.1 cm, that persists on the spot compression views. No distortion or suspicious calcifications. ULTRASOUND: Breast ultrasound findings: In the right breast 12 o'clock axis, 4 cm from the nipple there is an ovoid 1.0 x 0.6 x 1.0 cm complicated cyst. This is believed to correlate to the mammogram finding. It has no suspicious features. No shadowing or distortion. IMPRESSION: Probably benign cyst in the right breast 12 o'clock axis. Follow-up with mammogram and ultrasound in 6 months is recommended for close surveillance. ASSESSMENT: BI-RADS Category 3: Probably benign.
== END 2025-01-19 23:59 | disposition home or self-care (01) ==
LOC: RAD 12:39
PROVIDERS: PCP Internal Medicine; Visit Provider Internal Medicine
DX: R92.8 Other abnormal and inconclusive findings on diagnostic imaging of breast (principal)
CPT/HCPCS: 76641; 77061; 77065; G0279

== ENCOUNTER 2025-05-02 14:44 | Emergency (ER) | payer OTHER, SELFPAY ==
[2025-05-02 15:03] VITALS: BP 151/93; PULSE 119; RESP 18; TEMP 36.8; O2SAT 100; BMI 33.0
--- NOTE | 2025-05-02 15:14 | CT_ITS ---
FINAL REPORT TECHNIQUE: Axial CT images were performed through the head. Coronal reformatted images were submitted. This study was performed with techniques to keep radiation doses as low as reasonably achievable (ALARA). Individualized dose reduction techniques using automated exposure control or adjustment of mA and/or kV according to the patient's size were employed. CLINICAL HISTORY: migraine, nausea, vomiting, worse than prior BARKER COMPARISON: None FINDINGS: There is small craniotomy in the posterior left frontal region with underlying encephalomalacia well seen on images 38-44. The ventricles are normal in size. There is no evidence of acute hemorrhage, mass effect, or edema. There is no abnormal extra-axial fluid seen. The paranasal sinuses are well aerated. IMPRESSION: Craniotomy defect with overlying encephalomalacia. Reviewed, Interpreted and Dictated by Marcus Pandey MD Transcribed by Kari Adrian Authenticated and [facility]
[2025-05-02 15:46] LABS: Hematocrit 42.6 % (37.0-47.0); Hemoglobin 14.3 g/dL (12.2-16.2); Immature Granulocytes % 0.4 %; Mean Corpuscular HGB Conc 33.6 g/dL (31.8-35.4); Mean Corpuscular Hemoglobin 30.0 pg (27.0-31.2); Mean Corpuscular Volume 89.5 fl (81-99); Nucleated Red Blood Cells % 0 %; Platelet Count 261 K/mm3 (142-424); Red Blood Count 4.76 M/mm3 (4.20-5.40); Red Cell Distribution Width-SD 39.4 fL; White Blood Count 7.8 K/mm3 (4.8-10.8)
[2025-05-02 15:55] LABS: Albumin Level 5.0 g/dl (3.5-5.0); Chloride 102 mmol/L (98-107); Potassium 3.7 mmoL/L (3.5-5.1); Sodium 139 mmol/L (136-145)
[2025-05-02 15:58] LABS: Alanine Aminotransferase 17 U/L (12-78); Alkaline Phosphatase 98 U/L (38-126); Anion Gap 14.7 mEq/L (5-15); Aspartate Amino Transferase 27 U/L (14-36); Bilirubin,Total 0.8 mg/dl (0.2-1.3); Blood Urea Nitrogen 8 mg/dl (7-17); Calcium 9.6 mg/dl (8.4-10.2); Carbon Dioxide 26 mmol/L (22.0-30.0); Creatinine Clearance Estimated 160 mL/min (50-200); Creatinine,Serum 0.60 mg/dl (0.52-1.04); Estimated Glomerular Filt Rate 110 ml/min (>60); GFR (African American) 133 ML/MIN (>60); Glucose 115 mg/dl (74-100); Total Protein,Serum 8.6 g/dl (6.3-8.2)
[2025-05-02] MEDS: ACETAMINOPHEN 1,000MG/100ML VIAL 1000 MG IV (16:02)
[2025-05-02] MEDS: KETOROLAC 30MG/ML VIAL 15 MG IV (16:02)
[2025-05-02] MEDS: METOCLOPRAMIDE HCL 10MG/2ML VIAL 5 MG IVP (16:02)
[2025-05-02] MEDS: DEXAMETHASONE 4MG/ML 1ML VIAL 8 MG IV (16:02)
[2025-05-02] MEDS: LACTATED RINGERS 1000ML 1,000 ML 999 ML IV (16:02)
[2025-05-02 16:09] LABS: Albumin/Globulin Ratio 1.4 (1.1-1.8); Globulin 3.6 g/dL (1.3-3.2)
--- NOTE | 2025-05-02 16:16 | HMH.EDGENADL ---
Discharge Plan Disposition Patient Disposition: Home, Self-Care Condition: Good Prescriptions Prescriptions: No Action sumatriptan succinate 100 mg tablet PO amlodipine 5 mg tablet 5 mg PO DAILY Qty: 90 3RF epinephrine 0.3 mg/0.3 mL auto-injector 0.3 mg IM Q10M PRN (Reason: anaphylaxis) Qty: 2 0RF Rx Instructions: for 2 doses Referrals Follow up/Referrals: Dinesh Madrigal [Primary Care Provider, Medical] - See instructions Activity Restrictions/Add. Instructions Additional Instructions/Restrictions: You were evaluated in the emergency department today. As we discussed, I recommend close follow-up with neurology. Return to the emergency department for new or worsening symptoms. Clinical Impressions Clinical Impression: Migraine Stand Alone Forms Stand Alone Forms: Work/School Release Instructions Patient Instructions: DI for Migraine, DI for Nausea -- Adult Print Language Print Language: Persian Discharge ED Provider: Jael Garduno General Adult HPI General Chief complaint: Nausea/Vomiting/Diarrhea Stated complaint: vomiting, diarrhea, headache Time Seen by Provider: 05/02/25 15:09 Mode of Arrival: Ambulatory Source of Information: Patient and Spouse Description of Symptoms (Recalled from ER Triage Doc. by RN): Pt presents for evaluation of increased blood pressue, n/v, and headache since yesterday. Pt states she check her bp on a home cuff and it was 143/101 History of Present Illness HPI narrative: This patient is a 40-year-old female with a history of hypertension and migraines presenting to the emergency department for evaluation with concern for headache, nausea, and vomiting. She notes that it started gradually last night but is persistently worsened since then. She states that she tried taking her migraine medications without good improvement. This is worse than typical migraines. She also notes that her blood pressure has been very high with this and she is experienced nausea and vomiting. No abdominal pain. No fevers, sore throat, cough, congestion, or other concerns. Related Data Home Medications ?Medication ?Instructions ?Recorded ?Confirmed sumatriptan succinate 100 mg tablet mg PO 02/28/25 02/28/25 Previous Rx's ?Medication ?Instructions ?Recorded epinephrine 0.3 mg/0.3 mL 0.3 mg (0.3 mL) IM Q10M PRN 09/01/24 injection, auto-injector anaphylaxis #2 ea amlodipine 5 mg tablet 5 mg PO DAILY #90 tabs 11/10/24 Allergies Allergy/AdvReac Type Severity Reaction Status Date / Time cefdinir Allergy Severe Anaphylaxis Verified 02/28/25 15:32 Penicillins Allergy Swelling Verified 02/28/25 15:32 of the Eye [facility] Disclaimer: The information contained in this section may have been updated after the patient was seen, as this information can be updated by other users. 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 History of LEEP (loop electrosurgical excision procedure) of cervix complicating Nausea and vomiting during Tobacco smoking affecting in first trimester Seizures section wound complication Brain injury Surgical History deliv NOS-unsp Status post tubal ligation Previous section Family History Other Family history of arthritis Family history of lung cancer Social History Smoking Status: Smoker, status unknown tobacco type: cigarettes packs per day: 1 how long ago did patient quit smokin years alcohol intake: never substance use type: denies use current occupational status: employed Travel in the last 8 weeks?: None Have you lived/traveled outside US in past 30 days?: No Contact w/someone who lives/traveled outside US past 30 days?: No Exposure to someone with infectious disease in past 14 days?: No Do you have a fever (greater than 100.4 F or 38 C)?: No Have you tested positive for COVID-19?: No Exposed to someone with COVID-19 in past 14 days?: No Do you have a sore throat?: No Do you have a cough?: No Do you have any weakness?: Yes Do you have any diarrhea?: Yes Are you experiencing any unusual bleeding?: No Do you have any muscle aches/pain?: No Do you have any abdominal pain?: Yes Are you experiencing loss of taste or smell?: No Other Medical History Have you received the Flu Vaccine for this season: No Have you received the Pneumonia Vaccine: No ROS Obtained: Yes All systems reviewed & no additional complaints except as documented Physical Exam General General appearance: alert and in no apparent distress Head Head exam: atraumatic and normocephalic Eye Eye exam: Present normal appearance, PERRL and EOMI ENT ENT exam: Present normal exam, normal oropharynx, mucous membranes moist and normal external ear exam Neck Neck exam: Present normal inspection, full ROM and trachea midline; Absent tenderness Chest Chest inspection: Present normal inspection and symmetric chest wall rise; Absent tenderness Respiratory Respiratory exam: Present normal lung sounds bilaterally; Absent respiratory distress, wheezes, stridor or accessory muscle use Cardiovascular Cardiovascular exam: Present regular rate and normal rhythm Abdominal Exam Abdominal exam: Present soft; Absent distention, tenderness or guarding Extremities Exam Extremities exam: Present normal inspection, full ROM and normal capillary refill; Absent tenderness or edema Back Exam Back exam: Present normal inspection and full ROM; Absent tenderness Neurological Exam Neurological exam: Present alert, oriented X3, CN II-XII intact and normal gait; Absent motor sensory deficit Psychiatric Psychiatric exam: Present normal affect and normal mood Skin Skin exam: Present warm and dry Medical Decision Making Medical Records Medical records reviewed: Yes I reviewed the patient's medical records. Screening: Per USPSTF and CDC recommendations, given the prevalence of disease in our region, it is our hospital?s policy to screen for HIV and viral Hepatitis for all patients aged 18 and over and those with ongoing risk factors. Kris Inquiry Pt receiving controlled substance: No Vital Signs: 05/02/25 15:03 05/02/25 16:59 05/02/25 17:00 Temperature 98.3 F Temperature Source Tympanic Pulse Rate 75 74 Pulse Rate [Right] 119 H Respiratory Rate 18 Blood Pressure 138/86 134/88 Blood Pressure [Right Arm] 151/93 H Blood Pressure Mean [Right Arm] 112 Blood Pressure Source Blood Pressure Source [Right Arm] Automatic Cuff Blood Pressure Position Blood Pressure Position [Right Arm] Sitting 02 Sat by Pulse Oximetry 100 96 98 Oxygen Delivery Method Room Air Room Air Room Air 05/02/25 17:13 Temperature 98.7 F Temperature Source Oral Pulse Rate 74 Pulse Rate [Right] Respiratory Rate 16 Blood Pressure 154/88 H Blood Pressure [Right Arm] Blood Pressure Mean [Right Arm] Blood Pressure Source Automatic Cuff Blood Pressure Source [Right Arm] Blood Pressure Position Sitting Blood Pressure Position [Right Arm] 02 Sat by Pulse Oximetry Oxygen Delivery Method Room Air Lab Data Lab results reviewed: Yes I reviewed the patient's lab results. Lab Results 05/02/25 15:40: WBC 7.8, RBC 4.76, Hgb 14.3, Hct 42.6, MCV 89.5, MCH 30.0, MCHC 33.6, RDW 11.9, Plt Count 261, MPV 10.1, Neut % (Auto) 67.5, Lymph % (Auto) 23.9, [place] % (Auto) 4.6, Eos % (Auto) 3.1, Baso % (Auto) 0.5, Neut # (Auto) 5.3, Lymph # (Auto) 1.9, A[place]ac # (Auto) 0.4, Eos # (Auto) 0.2, Baso # (Auto) 0.0, Sodium 139, Potassium 3.7, Chloride 102, Carbon Dioxide 26, Anion Gap 14.7, BUN 8, Creatinine 0.60, Estimated Creat Clear 160, Estimated GFR 110, Est GFR ( Amer) 133, Glucose 115 H, Calcium 9.6, Total Bilirubin 0.8, AST 27, ALT 17, Alkaline Phosphatase 98, Total Protein 8.6 H, Albumin 5.0, Globulin 3.6 H, Albumin/Globulin Ratio 1.4 05/02/25 15:40 05/02/25 15:40 Orders (Tests/Meds): ED MEDICATIONS Discontinued Medications Generic Name Dose Route Start Last Admin Trade Name Nickq PRN Reason Stop Dose Admin Acetaminophen 1,000 mg 05/02/25 15:14 05/02/25 16:02 Acetaminophen 1,000mg/100ml Vial IV 05/02/25 15:15 1,000 mg ONCE ONE Administration Dexamethasone Sodium Phosphate 8 mg 05/02/25 15:15 05/02/25 16:02 Dexamethasone 4mg/Ml 1ml Vial IV 05/02/25 15:16 8 mg ONCE ONE Administration Lactated Ringer's 1,000 mls @ 999 mls/hr 05/02/25 15:14 05/02/25 16:02 Lactated Ringer's 1000 Ml Bag IV 05/02/25 16:14 999 mls/hr .Q1H1M ONE Administration Ketorolac Tromethamine 15 mg 05/02/25 15:14 05/02/25 16:02 Ketorolac 30mg/Ml Vial IV 05/02/25 15:15 15 mg ONCE ONE Administration Metoclopramide HCl 5 mg 05/02/25 15:14 05/02/25 16:02 Metoclopramide Hcl 10mg/2ml Vial IVP 05/02/25 15:15 5 mg ONCE ONE Administration ORDERS Category Date Time Status CT head/brain wo con Stat Cat Scan 05/02/25 15:14 Completed CBC w/Auto Diff [Complete Blood Count Auto Diff] Stat Lab 05/02/25 15:40 Completed CMP [Comprehensive Metabolic Panel] Stat Lab 05/02/25 15:40 Completed Medical Decision Narrative: In summary, this patient is a 40-year-old female presenting to the Emergency Department for evaluation of headache, nausea, vomiting, high blood pressure readings at home. Differential diagnoses considered include but are not limited to migraine, tension headache, hypertensive urgency, hypertensive emergency, intracranial mass, brain bleed. Ruling out the most morbid conditions drove assessment. It should be noted patient's history includes hypertension and migraine which may or may not be at goal therapy. This complicates all aspects of care by increasing patient's risk for morbidity. I reviewed patient's past medical records and noted prior evaluations by gynecology and cardiology for maintenance of health. On exam, the patient is sitting upright in no acute distress. She is neurologically intact. Blood pressure slightly elevated but otherwise vitals are reassuring on cardiac telemetry. Workup included CBC, CMP, urinalysis, CT head without contrast. She was given a bolus of IV fluids, IV Reglan, Toradol, acetaminophen, and dexamethasone for migraine cocktail. I independently interpreted CT scan prior to the radiologist read and noted encephalomalacia where the patient had prior craniotomy without large brain bleed or mass. Please see their read for final interpretation. Labs were obtained that demonstrated reassuring CBC and reassuring chemistry with nothing actionable at this time. On reassessment, patient had significant improvement after administration of migraine cocktail. She is feeling a lot better and remains neurologically intact. She notes she is having headaches very frequently which are typically managed by her PCP but she has not seen neurology. I do feel that she is appropriate for discharge home given reassuring workup and exam, but I recommended very close follow-up with neurology which her PCP can help refer her to. She was discharged with instructions for close follow-up and strict return precautions Critical Care Critical Care Time Critical Care Time: No
[2025-05-02 16:59] VITALS: BP 138/86; PULSE 75; O2SAT 96
[2025-05-02 17:00] VITALS: BP 134/88; PULSE 74; O2SAT 98
[2025-05-02 17:13] VITALS: BP 154/88; PULSE 74; RESP 16; TEMP 37.1; O2SAT 99
== END 2025-05-02 17:20 | disposition home or self-care (01) ==
PROVIDERS: Emergency Provider Emergency Medicine; PCP Internal Medicine
DX: G43.909 Migraine, unspecified, not intractable, without status migrainosus (principal); R11.2 Nausea with vomiting, unspecified; F17.210 Nicotine dependence, cigarettes, uncomplicated
CPT/HCPCS: 70450; 80053; 85025; 96361; 96374; 96375; 99284; J0131; J1100; J1885; J2765; J7120

== ENCOUNTER 2025-07-19 13:52 | Outpatient (CLI) | payer OTHER, SELFPAY ==
--- OUTSIDE RECORDS SUMMARY | 2024-12-27 10:00 | XMS_ITS | Encounter Summary ---
Author Organization 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 Name Role Phone Dinesh Madrigal MD Primary Care Provider [phone] Reason for Referral * Consultation (Routine) - Closed Specialty Diagnoses / Procedures Referred By Contac t Referred To Contact Gynecology Diagnoses Encounter for general adult medical examination with abnormal findings Papanicolaou smear for cervical cancer screening Procedures FL OFFICE/OUTPATIENT NEW MODERATE MDM 45 MINUTES Dinesh Madrigal MD [address] [place] [address] [place] [address] Phone: tel: fax: Bernardo Boone MD [address] [facility] [address] [address] Phone: tel: fax: Referral ID Status Reason Start Date Expiration Date V isits Requested Visits Authorized [id number] Closed Specialty Services Required 12/27/2024 12/27/2025 1 1 * Diagnostic Imaging (Routine) - Closed Specialty Diagnoses / Procedures Referred By Contac t Referred To Contact Diagnoses Encounter for general adult medical examination with abnormal findings Encounter for screening mammogram for malignant neoplasm of breast Procedures Mammo Screening Digital Tomosynthesis Bilateral With CAD Dinesh Madrigal MD [address] [place] [address] [place] [address] Phone: tel: fax: [facility] [address] [address] Phone: tel: fax: Referral ID Status Reason Start Date Expiration Date Visits Re quested Visits Authorized [id number] Closed 12/27/2024 12/27/2025 1 1 Reason for Visit * Reason Comments Annual Exam Encounter Details Date Type Department Care Team (Late st Contact Info) Description 12/27/2024 9:00 AM EST Office Visit [facility] [address] [place] [address] [place] [address] Dinesh Madrigal MD [address] [place] [address] [place] [address] Encounter for general adult medical examination with abnormal findings (Primary Dx); Primary hypertension; Dyslipidemia; Vitamin D deficiency; Abnormal thyroid function test; Mild obesity; History of traumatic brain injury; Acquired right foot drop; Chronic migraine without aura without status migrainosus, not intractable; Ex-cigarette smoker; Need for hepatitis C screening test; Papanicolaou smear for cervical cancer screening; Encounter for screening mammogram for malignant neoplasm of breast; Screening for diabetes mellitus; Need for Tdap vaccination Social History Tobacco Use Types Packs/Day Years Used Date Smoking Tobacco: Former Cigarettes 0.5 15 0 10/26/2010 - 11/03/2022 Smokeless Tobacco: Never Tobacco Cessation:Counseling Given: Not Answered Alcohol Use Standard Drinks/Week Comments Yes 0 (1 standard drink = 0.6 oz pur e alcohol) Occasion PHQ-2 Answer Date Recorded Patient Health Questionnaire-2 Score 0 12/27/2024 Comments Unknown Sex and Gender Information Value Date Recorded Sex Assigned at Female 12/26/2024 5:52 PM EST Legal Sex Female 2:45 PM EDT Gender Identity Not on file Sexual Orientation Straight 12/26/2024 5: 52 PM EST documented as of this encounter Last Filed Vital Signs Vital Sign Reading Time Taken Comments Blood Pressure 129/86 12/27/2024 8:51 AM EST Pulse 88 12/27/2024 8:51 AM EST Temperature 36.6 C (97.9 F) 12/27/2024 8:51 AM EST Respiratory Rate - - Oxygen Saturation 99% 12/27/2024 8:51 AM EST Inhaled Oxygen Concentration - - Weight 83.1 kg (183 lb 3.2 oz) 12/27/2024 8:51 A M EST Height 157.5 cm (5' 2 ) 12/27/2024 8:51 AM EST Body Mass Index 33.51 12/27/2024 8:51 AM EST documented in this encounter Functional Status documented as of this encounter Progress Notes * Dinesh Madrigal MD - 12/27/2024 7:08 PM ESTAssociated Problem(s): Ex- cigarette smoker [id number] history of cigarette smoking abstaining since 2022. Will not require low-dose screening chest CT based upon her low pack-years * Dinesh Madrigal MD - 12/27/2024 7:07 PM ESTAssociated Problem(s): Chronic migraine without aura without status migrainosus, not intractable Chronic daily headaches, with more significant flares on a monthly basis, present consistently for 5-6 years but even present more remotely to a lesser degree. Most consistent with a migraine syndrome. Initiating Topamax prophylaxis after discussing side effect potential, titrating to 50 mg nightly, this also benefit her efforts at weight loss. Assess clinical response in 6 weeks, advising if problems in the interim. * Dinesh Madrigal MD - 12/27/2024 7:06 PM ESTAssociated Problem(s): Acquired right foot drop Reports traumatic brain injury at age 1 with secondary right-sided weakness, most prominently having a residual weakness to dorsiflexion of her right foot with secondary foot drop and antalgic gait, subtle weakness of her right arm. * Dinesh Madrigal MD - 12/27/2024 7:06 PM ESTAssociated Problem(s): History of traumatic brain injury Reports traumatic brain injury at age 1 with secondary right-sided weakness, most prominently having a residual weakness to dorsiflexion of her right foot with secondary foot drop and antalgic gait, subtle weakness of her right arm. * Dinesh Madrigal MD - 12/27/2024 7:06 PM ESTAssociated Problem(s): Encounter for general adult medical examination with abnormal findings 39-year-old female presenting for complete physical with specific health issues being addressed as detailed below, health maintenance includes pending referral for Pap smear, initial mammogram, Tdap administered today, EKG not performed today given recent evaluation by cardiology, and update limited labs given at extensive lab testing at [facility] in 08/2024. Follow-up in 6 weeksto assess clinical response regarding migraine headaches and her obesity to Topamax. * Dinesh Madrigal MD - 12/27/2024 7:05 PM ESTAssociated Problem(s): Encounter for screening mammogram for malignant neoplasm of breast Refer for her initial screening mammogram given age 39, average risk * Dinesh Madrigal MD - 12/27/2024 7:04 PM ESTAssociated Problem(s): Papanicolaou smear for cervical cancer screening Patient reports last Pap smear approximately 4 years ago and normal, prior remote abnormal Pap smear. Referring to gynecology at [facility] for women's health evaluation. * Dinesh Madrigal MD - 12/27/2024 7:04 PM ESTAssociated Problem(s): Vitamin D deficiency Not currently on supplement. Update level. * Dinesh Madrigal MD - 12/27/2024 7:04 PM ESTAssociated Problem(s): Abnormal thyroid function test Normal TSH with elevated total T4 at [facility] 08/2024. Repeat TFTs including TSH and free T4 * Dinesh Madrigal MD - 12/27/2024 7:02 PM ESTAssociated Problem(s): Mild obesity Patient advised regarding need for regular physical activity as well as healthy diet rich in fruitsand vegetables, avoiding junk foods fast foods and sweetened drinks and drinking primarily water. Also prescribing Topamax titrating to 50 mg nightly for added benefit of weight loss as well as concomitant treatment of her migraines. * Dinesh Madrigal MD - 12/27/2024 7:02 PM ESTAssociated Problem(s): Primary hypertension Satisfactory blood pressure control acutely as well as by history chronically taking amlodipine 5 mg daily as prescribed by her brancher. Continue current regimen * Dinesh Madrigal MD - 12/27/2024 7:02 PM ESTAssociated Problem(s): Dyslipidemia Update lipid profile. Not currently on cholesterol-lowering medication * Dinseh Madrigal MD - 12/27/2024 9:00 AM EST Images from the original note were not included. Female Physical Note Date: 12/27/2024 Patient Name: Rhona Noble : 1985 Chief Complaint: Chief Complaint Patient presents with Annual Exam History of Present Illness: Rhona Noble is a 40 y.o. female who is here today for their annual health maintenance and physical. Patient does note having some chronic headaches for the last 5 or6 years, described as a dull generalized ache, occurring for hours at a time, occasionally having some phonophobia, and having more severe flares of headaches on a monthly basis for which she will nee d to lie down with her eyes closed. No focal neurological symptoms secondary to this headaches. Notaware of any specific etiology. She does note in the past having some headaches as a younger woman.History of head trauma at approximately age 1 with subsequent weakness of her right side of her body, some residual weakness primarily of dorsiflexion of her right foot as well as slightly of her right arm, clinically stable otherwise she also describes some sinus congestion with rhinorrhea that ismore seasonal, minimally symptomatic at this time. Also notes that her menstrual cycles have becomemore erratic in terms of the amount of flow but still regular on a monthly basis. No other acute complaints. Does have a history of an abnormal EKG with inferolateral T wave inversion for which she has recent undergone a cardiology workup with Dr. Vaughn of cardiology in [facility], including per patient account and echocardiogram and nuclear stress test that were all unremarkable. She also has had hypertension diagnosis of accelerated hypertension during ER evaluation in 08/2024 for which she was initially started on carvedilol, but was switched by her brancher approximately 3 monthsago to amlodipine 5 mg daily, indicating her blood pressures are averaging 110s over 60s. She denies any pains palpitations dyspnea or edema. Patient also has been evaluated for questionable trace hematuria with culture revealing no obvious infection. History of abnormal TFTs with normal TSH but elevated total T4. Mild obesity with suboptimal lifestyle. History of cigarette abuse, approximately 0.5 packs/day x 20 years abstaining since 2022. Rare social alcohol. No history of substance use. Review of systems as above otherwise unremarkable Health maintenance includes Pap smear by history approximately 4 years ago and normal though she did have previous abnormal cells , with referral to gynecology pending, mammogram referral pending, no indication based upon age and low risk of pursuing colon cancer screening at this time, Tdap administered today, labs during hospitalization 08/2024 including CBC CMP and HIV negative, UA with 2+ blood was noted, TSH normal elevated total T4, limited repeat testing pending. Subjective Review of Systems: Review of Systems Past Medical History, Social History, Family History and Care Team were all reviewed with patient and updated as appropriate. Medications: Current Outpatient Medications: amitriptyline (ELAVIL) 25 MG tablet, Take 1 tablet by mouth Every Night. For prevention of migraines, Disp: 90 tablet, Rfl: 3 amLODIPine (NORVASC) 10 MG tablet, Take 0.5 tablets by mouth Daily., Disp: , Rfl: phentermine 37.5 MG capsule, Take 1 capsule by mouth Every Morning., Disp: 30 capsule, Rfl: 0 predniSONE (DELTASONE) 20 MG tablet, Take 1 tablet by mouth 2 (Two) Times a Day for 5 days., Disp: 10 tablet, Rfl: 0 SUMAtriptan (Imitrex) 100 MG tablet, Take one tablet at onset of headache. May repeat dose one timein 2 hours if headache not relieved., Disp: 15 tablet, Rfl: 1 triamcinolone (KENALOG) 0.1 % cream, Apply 1 Application topically to the appropriate area as directed 2 (Two) Times a Day., Disp: 60 g, Rfl: 1 Allergies: Allergies Allergen Reactions Penicillins Rash Cefdinir Nausea And Vomiting and Palpitations Immunizations: Health Maintenance Summary Awaiting Completion HEPATITIS C SCREENING (Once) Order placed this encounter 12/29/2024 Order placed for Hepatitis C Antibody by Dinesh Madrigal MD Upcoming INFLUENZA VACCINE (Yearly - July to December) Next due on 07/26/2025 07/25/2024 Imm Admin: Influenza, Unspecified 08/09/2020 Imm Admin: Fluzone (or Fluarix & Flulaval for VFC) >6mos 08/19/2018 Imm Admin: Influenza Seasonal Injectable ANNUAL PHYSICAL (Yearly) Next due on 12/27/2025 12/27/2024 Done MAMMOGRAM (Every 2 Years) Next due on 01/19/2027 01/26/2025 Order placed for Mammo Diagnostic Digital Tomosynthesis Right With CAD by Dinesh Madrigal MD 01/19/2025 Mammo Diagnostic Digital Tomosynthesis Right With CAD 01/09/2025 Mammo Screening Digital Tomosynthesis Bilateral With CAD PAP SMEAR (Every 3 Years) Next due on 02/29/2028 02/28/2025 Done TDAP/TD VACCINES (2 - Td or Tdap) Next due on 12/27/2034 12/27/2024 Imm Admin: Tdap Completed or No Longer Recommended COVID-19 Vaccine (Series Information) Completed 09/05/2024 Imm Admin: COVID-19 (PFIZER) 12YRS+ (COMIRNATY) 08/02/2021 Imm Admin: COVID-19 (PFIZER) Purple Cap Monovalent 12/10/2020 Imm Admin: COVID-19 (PFIZER) Purple Cap Monovalent 11/19/2020 Imm Admin: COVID-19 (PFIZER) Purple Cap Monovalent Pneumococcal Vaccine 0-49 (Series Information) Aged Out No completion, postpone, or frequency change history exists for this topic. Orders Placed This Encounter Procedures Tdap Vaccine Greater Than or Equal To 7yo IM Colorectal Screening: N/A based on age and low risk Last Completed Colonoscopy This patient has no relevant Health Maintenance data. Pap: Approximately 4 years prior, referral to gynecology pending Last Completed Pap Smear Upcoming PAP SMEAR (Every 3 Years) Next due on 02/29/2028 02/28/2025 Done Mammogram: Referral pending Last Completed Mammogram Upcoming MAMMOGRAM (Every 2 Years) Next due on 01/19/2027 01/26/2025 Order placed for Mammo Diagnostic Digital Tomosynthesis Right With CAD by Dinesh Madrigal MD 01/19/2025 Mammo Diagnostic Digital Tomosynthesis Right With CAD 01/09/2025 Mammo Screening Digital Tomosynthesis Bilateral With CAD CT for Smoker (Age 50-80, 20 pk yr): N/A Bone Density/DEXA (Age 65 or high risk): N/A based upon age Hep C (Age 18-79 once): Pending HIV (Age 15-65 once): No results found for: HIV1X2 previously negative A1c: No results found for: HGBA1C pending Lipid panel: No results found for: LIPIDEXCLUSI pending The ASCVD Risk score (Nell DK, et al., 2019) failed to calculate for the following reasons: Cannot find a previous HDL lab Cannot find a previous total cholesterol lab Dermatology: N/A Credit Card Clerk: Regular checkups encouraged Dentist: Past due for evaluation, hygiene and follow-up with dentistry encouraged Tobacco Use: Medium Risk (06/21/2025) Patient History Smoking Tobacco Use: Former Smokeless Tobacco Use: Never Passive Exposure: Not on file Social History Substance and Sexual Activity Alcohol Use Yes Comment: Occasion Social History Substance and Sexual Activity Drug Use Never Diet/Physical activity: Suboptimal diet and physical activity Sexual Health: Bilateral tubal ligation for contraception, not attempting Menopause: No Menstrual Cycles: Regular, last menstrual cycle: Within the last month Depression: PHQ-2 Depression Screening PHQ-9 Total Score: 0 Objective Physical Exam: Vital Signs: Vitals: 12/27/24 0851 BP: 129/86 BP Location: Left arm Patient Position: Sitting Cuff Size: Adult Pulse: 88 Temp: 97.9 ??F (36.6 ??C) TempSrc: Temporal SpO2: 99% Weight: 83.1 kg (183 lb 3.2 oz) Height: 157.5 cm (62 ) PainSc: 0-No pain Facility age limit for growth %john is 20 years. Body mass index is 33.51 kg/m??. Physical Exam Vitals and nursing note reviewed. Constitutional: General: She is not in acute distress. Appearance: Normal appearance. She is obese. She is not ill-appearing. Comments: Pleasant healthy alert and oriented, NAD, BMI 33.5 reflecting a 4 pound weight loss in the last 3.5 months HENT: Head: Normocephalic and atraumatic. Right Ear: Tympanic membrane, ear canal and external ear normal. Left Ear: Tympanic membrane, ear canal and external ear normal. Nose: Nose normal. No congestion or rhinorrhea. Mouth/Throat: Mouth: Mucous membranes are moist. Pharynx: Oropharynx is clear. Comments: Anterior mandibular dental plaques with multiple missing teeth Eyes: Extraocular Movements: Extraocular movements intact. Conjunctiva/sclera: Conjunctivae normal. Pupils: Pupils are equal, round, and reactive to light. Neck: Vascular: No carotid bruit. Comments: No periclavicular or axillary or inguinal adenopathy Cardiovascular: Rate and Rhythm: Normal rate and regular rhythm. Pulses: Normal pulses. Heart sounds: Normal heart sounds. No murmur heard. No friction rub. No gallop. Comments: 2+ carotids without bruits, 2+ radial pulses, 2+ femoral pulses without bruits, 2+ bipedal pulses with good perfusion and no dependent edema Pulmonary: Effort: Pulmonary effort is normal. No respiratory distress. Breath sounds: Normal breath sounds. Comments: No cough Chest: Breasts: Ben Score is 5. Breasts are symmetrical. Right: Normal. No swelling, bleeding, inverted nipple, mass, nipple discharge, skin change or tenderness. Left: Normal. No swelling, bleeding, inverted nipple, mass, nipple discharge, skin change or tenderness. Abdominal: General: Bowel sounds are normal. There is no distension. Palpations: Abdomen is soft. There is no mass. Tenderness: There is no abdominal tenderness. There is no guarding or rebound. Hernia: No hernia is present. Comments: Nontender nondistended with no organomegaly or masses Genitourinary: Comments: Breast and exam deferred today, pending ASSISTANT IMPORT MANAGER consultation Musculoskeletal: General: No swelling, tenderness, deformity or signs of injury. Normal range of motion. Cervical back: Normal range of motion and neck supple. No rigidity or tenderness. Right lower leg: No edema. Left lower leg: No edema. Lymphadenopathy: Cervical: No cervical adenopathy. Upper Body: Right upper body: No supraclavicular or axillary adenopathy. Left upper body: No supraclavicular or axillary adenopathy. Skin: General: Skin is warm and dry. Capillary Refill: Capillary refill takes less than 2 seconds. Findings: No lesion or rash. Neurological: General: No focal deficit present. Mental Status: She is alert and oriented to person, place, and time. Mental status is at baseline. Cranial Nerves: No cranial nerve deficit. Sensory: No sensory deficit. Motor: Weakness present. Coordination: Coordination normal. Gait: Gait abnormal. Deep Tendon Reflexes: Reflexes abnormal. Comments: Svbqhp-im-rect testing bilaterally generally intact, moderate weakness to the right foot to dorsiflexion, secondary discoordinate gait with slight foot drop, very subtle weakness of the right arm, hyperreflexia of her right triceps, biceps, brachial radialis, and knee reflexes relative tothe left 2+ symmetric ankle reflexes bilaterally Psychiatric: Mood and Affect: Mood normal. Behavior: Behavior normal. Thought Content: Thought content normal. Judgment: Judgment normal. POCT Results (if applicable); Results for orders placed or performed in visit on 09/05/24 POC Urinalysis Dipstick Collection Time: 09/05/24 12:30 PM Specimen: Urine Result Value Ref Range Color Dark Yellow Yellow, Straw, Dark Yellow, Jael Clarity, UA Cloudy (A) Clear Glucose, UA Negative Negative mg/dL Bilirubin Negative Negative Ketones, UA Negative Negative Specific [place] 1.015 1.005 - 1.030 Blood, UA 3+ (A) Negative pH, Urine 7.5 5.0 - 8.0 Protein, POC Negative Negative mg/dL Urobilinogen, UA 0.2 E.U./dL Normal, 0.2 E.U./dL Leukocytes Negative Negative Nitrite, UA Negative Negative Urine Culture - Urine, Urine, Clean Catch Collection Time: 09/05/24 12:32 PM Specimen: Urine, Clean Catch Urine Release to charly Result Value Ref Range Urine Culture Final report Result 1 No growth Urine culture, Comprehensive - , Collection Time: 09/09/24 4:00 PM Urine Release to charly Result Value Ref Range Urine Culture Final report Result 1 Comment Urinalysis With Culture If Indicated - Urine, Clean Catch Collection Time: 09/09/24 4:00 PM Specimen: Urine, Clean Catch Urine Release to charly Result Value Ref Range Specific [place], UA 1.020 1.005 - 1.030 pH, UA 6.5 5.0 - 7.5 Color, UA Yellow Yellow Appearance, UA Clear Clear Leukocytes, UA 1+ (A) Negative Protein Negative Negative/Trace Glucose, UA Negative Negative Ketones Negative Negative Blood, UA Trace (A) Negative Bilirubin, UA Negative Negative Urobilinogen, UA 0.2 0.2 - 1.0 mg/dL Nitrite, UA Negative Negative Microscopic Examination See below: Urinalysis Reflex Comment Microscopic Examination - Collection Time: 09/09/24 4:00 PM Urine Release to charly Result Value Ref Range WBC, UA None seen 0 - 5 /hpf RBC, UA 0-2 0 - 2 /hpf Epithelial Cells (non renal) 0-10 0 - 10 /hpf Casts None seen None seen /lpf Bacteria, UA Few None seen/Few Procedures Assessment / Plan Assessment/Plan: Diagnoses and all orders for this visit: 1. Encounter for general adult medical examination with abnormal findings (Primary) Assessment & Plan: 39-year-old female presenting for complete physical with specific health issues being addressed as detailed below, health maintenance includes pending referral for Pap smear, initial mammogram, Tdap administered today, EKG not performed today given recent evaluation by cardiology, and update limited labs given at extensive lab testing at [facility] in 08/2024. Follow-up in 6 weeksto assess clinical response regarding migraine headaches and her obesity to Topamax. Orders: - TSH; Future - T4, Free; Future - Comprehensive Metabolic Panel; Future - Lipid Panel; Future - Hemoglobin A1c; Future - Hepatitis C Antibody; Future - Vitamin D,25-Hydroxy; Future - Urinalysis With Culture If Indicated -; Future - Mammo Screening Digital Tomosynthesis Bilateral With CAD; Future - Ambulatory Referral to Gynecology 2. Primary hypertension Assessment & Plan: Satisfactory blood pressure control acutely as well as by history chronically taking amlodipine 5 mg daily as prescribed by her brancher. Continue current regimen Orders: - Comprehensive Metabolic Panel; Future - Urinalysis With Culture If Indicated -; Future 3. Dyslipidemia Assessment & Plan: Update lipid profile. Not currently on cholesterol-lowering medication Orders: - Lipid Panel; Future 4. Vitamin D deficiency Assessment & Plan: Not currently on supplement. Update level. Orders: - Vitamin D,25-Hydroxy; Future 5. Abnormal thyroid function test Assessment & Plan: Normal TSH with elevated total T4 at [facility] 08/2024. Repeat TFTs including TSH and free T4 Orders: - TSH; Future - T4, Free; Future 6. Mild obesity Assessment & Plan: Patient advised regarding need for regular physical activity as well as healthy diet rich in fruitsand vegetables, avoiding junk foods fast foods and sweetened drinks and drinking primarily water. Also prescribing Topamax titrating to 50 mg nightly for added benefit of weight loss as well as concomitant treatment of her migraines. Orders: - Discontinue: topiramate (Topamax) 50 MG tablet; 0.5 tablets daily for 6 days then 1 tablet daily (Patient not taking: Reported on 02/07/2025) Dispense: 30 tablet; Refill: 1 7. History of traumatic brain injury Assessment & Plan: Reports traumatic brain injury at age 1 with secondary right-sided weakness, most prominently having a residual weakness to dorsiflexion of her right foot with secondary foot drop and antalgic gait, subtle weakness of her right arm. 8. Acquired right foot drop Assessment & Plan: Reports traumatic brain injury at age 1 with secondary right-sided weakness, most prominently having a residual weakness to dorsiflexion of her right foot with secondary foot drop and antalgic gait, subtle weakness of her right arm. 9. Chronic migraine without aura without status migrainosus, not intractable Assessment & Plan: Chronic daily headaches, with more significant flares on a monthly basis, present consistently for 5-6 years but even present more remotely to a lesser degree. Most consistent with a migraine syndrome. Initiating Topamax prophylaxis after discussing side effect potential, titrating to 50 mg nightly, this also benefit her efforts at weight loss. Assess clinical response in 6 weeks, advising if problems in the interim. Orders: - Discontinue: topiramate (Topamax) 50 MG tablet; 0.5 tablets daily for 6 days then 1 tablet daily (Patient not taking: Reported on 02/07/2025) Dispense: 30 tablet; Refill: 1 10. Ex-cigarette smoker Assessment & Plan: [id number] history of cigarette smoking abstaining since 2022. Will not require low-dose screening chest CT based upon her low pack-years 11. Need for hepatitis C screening test - Hepatitis C Antibody; Future 12. Papanicolaou smear for cervical cancer screening Assessment & Plan: Patient reports last Pap smear approximately 4 years ago and normal, prior remote abnormal Pap smear. Referring to gynecology at [facility] for women's health evaluation. Orders: - Ambulatory Referral to Gynecology 13. Encounter for screening mammogram for malignant neoplasm of breast Assessment & Plan: Refer for her initial screening mammogram given age 39, average risk Orders: - Mammo Screening Digital Tomosynthesis Bilateral With CAD; Future 14. Screening for diabetes mellitus - Hemoglobin A1c; Future 15. Need for Tdap vaccination - Tdap Vaccine Greater Than or Equal To 7yo IM Healthcare Maintenance: Counseling provided based on age appropriate USPSTF guidelines. Rhona Noble voices understanding and acceptance of this advice and will call back with any further questions or concerns. AVS with preventive healthcare tips printed for patient. Vaccine Counseling: ???Discussed risks/benefits to vaccination, reviewed components of the vaccine, discussed VIS, discussed informed consent, informed consent obtained. Patient/Parent was allowed to accept or refuse vaccine. Questions answered to satisfactory state of patient/Parent. We reviewed typical age appropriate and seasonally appropriate vaccinations. Reviewed immunization history and updated state vaccination form as needed. Patient was counseled on Tdap Follow Up: Return in about 6 weeks (around 02/07/2025) for Recheck. At [facility], we believe that sharing information builds trust and better relationships. You are receiving this note because you recently visited [facility]. It is possible you will see health information before a provider has talked with you about it. This kind of information can be easy to misunderstand. To help you fully understand what it means for your health, we urge you to discussthis note with your provider. Dinesh Madrigal MD [facility] Catherine documented in this encounter Plan of Treatment Upcoming Encounters Date Type Department Care Team (Late st Contact Info) Description 10/09/2025 9:00 AM EST Office Visit [facility] [address] [place] [address] [address] [place], [place] [id number] Dinesh Madrigal MD [address] [place] [id number] Scheduled Orders Name Type Priority Associated Diagnoses Orde r Schedule TSH Lab Routine Encounter for general adult medical examination with abnormal findings Abnormal thyroid function test Expected: 01/01/2025 (Approximate), Expires: 12/27/2025 T4, Free Lab Routine Encounter for general adult medical examination with abnormal findings Abnormal thyroid function test Expected: 01/01/2025 (Approximate), Expires: 12/27/2025 Comprehensive Metabolic Panel Lab Routine Encounter for general adult medical examination with abnormal findings Primary hypertension Expected: 01/01/2025 (Approximate), Expires: 12/27/2025 Lipid Panel Lab Routine Encounter for general adult medical examination with abnormal findings Dyslipidemia Expected: 01/01/2025 (Approximate), Expires: 12/27/2025 Hemoglobin A1c Lab Routine Encounter for general adult medical examination with abnormal findings Screening for diabetes mellitus Expected: 01/01/2025 (Approximate), Expires: 12/27/2025 Hepatitis C Antibody Lab Routine Encounter for general adult medical examination with abnormal findings Need for hepatitis C screening test Expected: 01/01/2025 (Approximate), Expires: 12/27/2025 Vitamin D,25-Hydroxy Lab Routine Encounter for general adult medical examination with abnormal findings Vitamin D deficiency Expected: 01/01/2025 (Approximate), Expires: 12/27/2025 Urinalysis With Culture If Indicated - Lab Routine Encounter for general adult medical examination with abnormal findings Primary hypertension Expected: 12/27/2024 (Approximate), Expires: 12/27/2025 documented as of this encounter Results * Mammo Screening Digital Tomosynthesis Bilateral With CAD (01/09/2025) Anatomical Region Laterality Modality Breast N/A Mammography Dinesh Madrigal MD IMG MAMMOGRAPHY ORDERABLES Fin al Result documented in this encounter Visit Diagnoses Diagnosis Encounter for general adult medical examination with abnormal findings- Primary Primary hypertension Unspecified essential hypertension Dyslipidemia Other and unspecified hyperlipidemia Vitamin D deficiency Abnormal thyroid function test Nonspecific abnormal results of thyroid function study Mild obesity History of traumatic brain injury Personal history of traumatic brain injury Acquired right foot drop Chronic migraine without aura without status migrainosus, not intractable Ex-cigarette smoker Personal history of tobacco use, presenting hazards to health Need for hepatitis C screening test Special screening examination for other specified viral diseases Papanicolaou smear for cervical cancer screening Screening for malignant neoplasm of the cervix Encounter for screening mammogram for malignant neoplasm of breast Screening for diabetes mellitus Need for Tdap vaccination Need for prophylactic vaccination with combined amnxuslwac-[id number] (DTP) vaccine documented in this encounter 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
--- OUTSIDE RECORDS SUMMARY | 2025-06-08 09:15 | XMS_ITS | Encounter Summary ---
Author Organization [facility] Address [address] [place] [address] Care Team Providers Care Pulmonary Disease Specialist Name Role Phone Dinesh Madrigal MD Primary Care Provider [phone] Reason for Visit * Reason Comments follow up weight and migraines Encounter Details Date Type Department Care Team (Late st Contact Info) Description 06/08/2025 9:15 AM EDT Office Visit [facility] [address] [place] [address] [place] [id number] Dinesh Madrigal MD [address] [place] [address] [place] [address] Chronic migraine without aura without status migrainosus, not intractable (Primary Dx); History of traumatic brain injury; Mild obesity; Primary hypertension Social History Tobacco Use Types Packs/Day Years [...] Sign Reading Time Taken Comments Blood Pressure 128/88 06/08/2025 9:24 AM EDT Pulse 101 06/08/2025 9:24 AM EDT Temperature 36.6 C (97.9 F) 06/08/2025 9:24 AM EDT Respiratory Rate - - Oxygen Saturation 97% 06/08/2025 9:24 AM EDT Inhaled Oxygen Concentration - - Weight 83.6 kg (184 lb 3.2 oz) 06/08/2025 9:24 A M EDT Height 157.5 cm (5' 2 ) 06/08/2025 9:24 AM EDT Body Mass Index 33.69 06/08/2025 9:24 AM EDT documented in this encounter Progress Notes * Dinesh Madrigal MD - 06/08/2025 12:59 PM EDTAssociated Problem(s): Mild obesity Longstanding struggles with obesity, having been prescribed previously Topamax for concomitant migraine suppression, having some irritability prompting self discontinuation, GLP-1 agonist not currently prescribed given lack of insurance coverage as well as questionable family history of thyroid cancer in an uncle. Started 1 month ago on phentermine 15 mg daily, not having any side effects but no anorectic effect, having noted 3 pound weight gain in the last month. Plan increase phentermine up to 37.5 mg daily, reassessing clinically in 1 month. If still not making progress, we will then discuss other options including potentially reinitiation of a trial of Topamax, noting she did self discontinue previously given some nonspecific irritability. Follow-up in 1 month. * Dinesh Madrigal MD - 06/08/2025 12:57 PM EDTAssociated Problem(s): Primary hypertension Satisfactory blood pressure control acutely as well as by history chronically having had an increase in amitriptyline within the last month by cardiology from 5 mg to 10 mg daily, noting patient takes in split doses of 5 mg twice daily. Continue current regimen with monitoring * Dinesh Madrigal MD - 06/08/2025 12:57 PM EDTAssociated Problem(s): Chronic migraine without aura without status migrainosus, not intractable Longest chronic daily headaches, typically flaring up daily several times monthly, history of TBI as a young child status post craniotomy, having a subtle right sided weakness and right foot drop. Previously given Topamax which caused some irritability prompting self discontinuation, metoprolol 50 mg prescribed in 01/2025 causing drop in blood pressure prompting self discontinuation. 1 month ago in 04/2025 started on amitriptyline 25 mg nightly which has almost completely resolved her headaches with no side effects. Continue current regimen. 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 Recent CT scan revealed evidence of a craniotomy with left-sided encephalomalacia. 1 month ago given referral to neurology for general evaluation. Clinically stable. * Dinesh Madrigal MD - 06/08/2025 9:15 AM EDT Images from the original note were not included. Answers submitted by the patient for this visit: Migraine (Submitted on 06/06/2025) Chief Complaint: Migraines Visit: follow-up Are you currently taking any prescription or OTC medications for your headaches?: Yes How many days a month do you typically have a headache?: 1 How are your headaches with recent changes and/or medications?: better Please enter any additional information about your headaches: Only have had one since starting new med Follow Up Office Visit Date: 06/08/2025 Patient Name: Rhona Noble : 1985 Chief Complaint: Chief Complaint Patient presents with follow up weight and migraines History of Present Illness: Rhona Noble is a 40 y.o. female who is here today for 1 month review, evaluating her migraine headaches having been started a month ago on amitriptyline 25 mg nightly, noting has only had 1 headache in the last month, previously 2 or 3 more significant headaches weekly and chronically having had a constant low-grade headache. She is very pleased with her responseto the amitriptyline, no side effects of the medication. History of TBI in childhood status post craniotomy, secondary right foot drop, subtle right-sided weakness. She also has a history of obesity,having been started 1 month ago on phentermine 15 mg daily, having gained 3 pounds of weight over the last month with no side effects. Indicates she generally eats healthy diet and is physically active with no with no specific targeted exercise program. No side effects of the phentermine. Also has hypertension within the last month having had an increase in amlodipine from 5 mg to 10 mg daily, patient taking in split doses to reduce perceived side effects, blood pressures averaging 110s over 70s. No other acute problems or concerns. Subjective Review of Systems: Review of Systems I have reviewed the patients family history, social history, past medical history, past surgical history and have updated it as appropriate. Medications: Current Outpatient Medications: amitriptyline (ELAVIL) 25 MG tablet, Take 1 tablet by mouth Every Night. For prevention of migraines, Disp: 90 tablet, Rfl: 3 amLODIPine (NORVASC) 10 MG tablet, Take 1 tablet by mouth Daily., Disp: , Rfl: SUMAtriptan (Imitrex) 100 MG tablet, Take one tablet at onset of headache. May repeat dose one timein 2 hours if headache not relieved., Disp: 15 tablet, Rfl: 1 phentermine 37.5 MG capsule, Take 1 capsule by mouth Every Morning., Disp: 30 capsule, Rfl: 0 Allergies: Allergies Allergen Reactions Penicillins Rash Cefdinir Nausea And Vomiting and Palpitations Objective Physical Exam: Please see above Vital Signs: Vitals: 06/08/25 0924 BP: 128/88 BP Location: Left arm Patient Position: Sitting Cuff Size: Adult Pulse: 101 Temp: 97.9 ??F (36.6 ??C) TempSrc: Temporal SpO2: 97% Weight: 83.6 kg (184 lb 3.2 oz) Height: 157.5 cm (62 ) Body mass index is 33.69 kg/m??. Physical Exam Constitutional: General: She is not in acute distress. Appearance: Normal appearance. She is obese. She is not ill-appearing. Comments: Pleasant, healthy, NAD, BMI 33.6, 3 pound weight gain in the last month Cardiovascular: Rate and Rhythm: Normal rate and regular rhythm. Heart sounds: Normal heart sounds. No murmur heard. No friction rub. No gallop. Pulmonary: Effort: Pulmonary effort is normal. No respiratory distress. Breath sounds: Normal breath sounds. Neurological: Mental Status: She is alert and oriented to person, place, and time. Mental status is at baseline. Gait: Gait abnormal. Comments: Chronic right sided foot drop related to childhood closed head injury, secondary abnormalgait Psychiatric: Mood and Affect: Mood normal. Behavior: Behavior normal. Thought Content: Thought content normal. Judgment: Judgment normal. Procedures Results: Labs: No results found for: HGBA1C , CMP , CBCDIFFPANEL , CREAT , TSH POCT Results (if applicable): Results for orders placed or performed in visit on 09/05/24 POC Urinalysis Dipstick Collection Time: 09/05/24 12:30 PM Specimen: Urine Result Value Ref Range Color Dark Yellow Yellow, Straw, Dark Yellow, Jael Clarity, UA Cloudy (A) Clear Glucose, UA Negative Negative mg/dL Bilirubin Negative Negative Ketones, UA Negative Negative Specific Mammoth 1.015 1.005 - 1.030 Blood, UA 3+ [...] to charly Result Value Ref Range Specific Mammoth, UA 1.020 1.005 - 1.030 pH, UA [...] seen /lpf Bacteria, UA Few None seen/Few Assessment / Plan Assessment/Plan: Diagnoses and all orders for this visit: 1. Chronic migraine without aura without status migrainosus, not intractable (Primary) Assessment & Plan: Longest chronic daily headaches, typically flaring up daily several times monthly, history of TBI as a young child status post craniotomy, having a subtle right sided weakness and right foot drop. Previously given Topamax which caused some irritability prompting self discontinuation, metoprolol 50 mg prescribed in 01/2025 causing drop in blood pressure prompting self discontinuation. 1 month ago in 04/2025 started on amitriptyline 25 mg nightly which has almost completely resolved her headaches with no side effects. Continue current regimen. Was referred to neurology last month given her history of TBI as well as headaches Orders: - amitriptyline (ELAVIL) 25 MG tablet; Take 1 tablet by mouth Every Night. For prevention of migraines Dispense: 90 tablet; Refill: 3 2. 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 Recent CT scan revealed evidence of a craniotomy with left-sided encephalomalacia. 1 month ago given referral to neurology for general evaluation. Clinically stable. 3. Mild obesity Assessment & Plan: Longstanding struggles with obesity, having been prescribed previously Topamax for concomitant migraine suppression, having some irritability prompting self discontinuation, GLP-1 agonist not currently prescribed given lack of insurance coverage as well as questionable family history of thyroid cancer in an uncle. Started 1 month ago on phentermine 15 mg daily, not having any side effects but no anorectic effect, having noted 3 pound weight gain in the last month. Plan increase phentermine up to 37.5 mg daily, reassessing clinically in 1 month. If still not making progress, we will then discuss other options including potentially reinitiation of a trial of Topamax, noting she did self discontinue previously given some nonspecific irritability. Follow-up in 1 month. Orders: - phentermine 37.5 MG capsule; Take 1 capsule by mouth Every Morning. Dispense: 30 capsule; Refill:0 4. Primary hypertension Assessment & Plan: Satisfactory blood pressure control acutely as well as by history chronically having had an increase in amitriptyline within the last month by cardiology from 5 mg to 10 mg daily, noting patient takes in split doses of 5 mg twice daily. Continue current regimen with monitoring Vaccine Counseling: Follow Up: Return in about 1 month (around 07/09/2025) for Recheck. At [facility], we believe that sharing information builds trust and better relationships. You are receiving this note because you recently visited [facility]. It is possible you will see health information before a provider has talked with you about it. This kind of information can be easy to misunderstand. To help you fully understand what it means for your health, we urge you to discussthis note with your provider. Dinesh Madrigal MD [facility] documented in this encounter Plan of Treatment Upcoming Encounters Date Type Department Care Team (Late st Contact Info) Description 10/09/2025 9:00 AM EST Office Visit [facility] [address] [place] [address] [place] [id number] Dinesh Madrigal MD [address] [place] [address] [place] [id number] documented as of this encounter Visit Diagnoses Diagnosis Chronic migraine without aura without status migrainosus, not intractable- Primary History of traumatic brain injury Personal history of traumatic brain injury Mild obesity Primary hypertension Unspecified essential hypertension documented in this encounter Care Teams Pulmonary Disease Specialist Relationship Specialty Start Date End Date Dinesh Madrigal MD [address] [place] [address] [place] [address] PCP - General Internal Medicine 09/05/24 documented as of this encounter
--- OUTSIDE RECORDS SUMMARY | 2025-06-21 08:30 | XMS_ITS | Encounter Summary ---
Author Organization [facility] Address [address] [place] [address] Care Team Providers Care Rack Loader Name Role Phone Dinesh Madrigal MD Primary Care Provider [phone] Reason for Visit * Reason Comments left arm and hand tingling and numb Encounter Details Date Type Department Care Team (Late st Contact Info) Description 06/21/2025 8:30 AM EDT Office Visit [facility] [address] [place] [address] [place] [address] Dinesh Madrigal MD [address] [place] [address] [place] [address] Allergic contact dermatitis, unspecified trigger (Primary Dx); Primary hypertension; Localized edema Social History Tobacco Use Types Packs/Day Years [...] Sign Reading Time Taken Comments Blood Pressure 128/89 06/21/2025 8:19 AM EDT Pulse 90 06/21/2025 8:19 AM EDT Temperature 36.6 C (97.9 F) 06/21/2025 8:19 AM EDT Respiratory Rate - - Oxygen Saturation 99% 06/21/2025 8:19 AM EDT Inhaled Oxygen Concentration - - Weight 83.6 kg (184 lb 6.4 oz) 06/21/2025 8:19 A M EDT Height 157.5 cm (5' 2 ) 06/21/2025 8:19 AM EDT Body Mass Index 33.73 06/21/2025 8:19 AM EDT documented in this encounter Progress Notes * Dinesh Madrigal MD - 06/21/2025 9:00 AM EDTAssociated Problem(s): Localized edema Several days of increasing dependent edema, likely secondary to amlodipine therapy. Reduce amlodipine from 10 mg down to 5 mg at 0.5 tablets daily. Assess clinical response when she follows up in thenext couple weeks. * Dinesh Madrigal MD - 06/21/2025 8:59 AM EDTAssociated Problem(s): Allergic contact dermatitis Patchy rash noted on her left chest wall, right arm, and bilateral mid to lower foreleg's. Clinically location pattern and symptoms of pruritus without pain, without vesiculation, making diagnosis ofshingles unlikely. Likely infectious etiology given lack of systemic symptoms and clinical appearance. Likely more related to contact dermatitis especially in conjunction with patient recently havingbeen weed eating. Treat with prednisone along with topical triamcinolone cream and moisturizing lotion. Advise if not improving over the next week or for any acute worsening of symptoms in the interim * Dinesh Madrigal MD - 06/21/2025 8:58 AM EDTAssociated Problem(s): Primary hypertension Borderline control acutely, excellent control chronically taking amlodipine 10 mg daily. Given development of stasis edema likely related to the amlodipine plus warm weather, will reduce amlodipine down to 0.5 tablets of 5 mg daily, evaluating both her edema and blood pressure control when she comes in for a follow-up visit in several weeks. Advise if concerns in the interim. * Dinesh Madrigal MD - 06/21/2025 8:30 AM EDT Images from the original note were not included. Answers submitted by the patient for this visit: Problem not listed (Submitted on 06/20/2025) Chief Complaint: Other medical problem Reason for appointment: Question shingles anorexia: No joint pain: No change in stool: No headaches: No joint swelling: No vertigo: No visual change: No Onset: in the past 7 days Chronicity: new Frequency: constantly Medications tried: Itchy rash below left shoulder left arm/hand tingling Follow Up Office Visit Date: 06/21/2025 Patient Name: Rhona Noble : 1985 Chief Complaint: Chief Complaint Patient presents with left arm and hand tingling and numb History of Present Illness: Rhona Noble is a 40 y.o. female who is here today for evaluation of a rash initially developing on both lower extremities proximately week ago after she had been weed eating, subsequently approximately 5 days ago developing a patch on her left lateral chest wall, and a single spot on her right forearm. She had been weed eating before onset of these lesions. She is wondering if she might have shingles. The rash has been pruritic, nontender, no stinging component, she has not felt ill in any manner, no symptoms of cough cold GI or otherwise. She also mentions to me developing the last several days some mild dependent edema in her ankle region. No cough wheeze or dyspnea. She does take amlodipine 10 mg daily for hypertension, this medication having been prescribed multiple months ago. Blood pressures averaging 1 teens over 70s.. Subjective Review of Systems: Review of Systems [...] Every Morning., Disp: 30 capsule, Rfl: 0 SUMAtriptan (Imitrex) 100 MG tablet, Take one tablet at onset of headache. May repeat dose one timein 2 hours if headache not relieved., Disp: 15 tablet, Rfl: 1 predniSONE (DELTASONE) 20 MG tablet, Take 1 tablet by mouth 2 (Two) Times a Day for 5 days., Disp: 10 tablet, Rfl: 0 triamcinolone (KENALOG) 0.1 % cream, Apply 1 Application topically to the appropriate area as directed 2 (Two) Times a Day., Disp: 60 g, Rfl: 1 Allergies: Allergies Allergen Reactions Penicillins Rash Cefdinir Nausea And Vomiting and Palpitations Objective Physical Exam: Please see above Vital Signs: Vitals: 06/21/25 0819 BP: 128/89 Pulse: 90 Temp: 97.9 ??F (36.6 ??C) TempSrc: Temporal SpO2: 99% Weight: 83.6 kg (184 lb 6.4 oz) Height: 157.5 cm (62 ) Body mass index is 33.73 kg/m??. Physical Exam Constitutional: General: She is not in acute distress. Appearance: Normal appearance. She is obese. She is not ill-appearing. Cardiovascular: Rate and Rhythm: Normal rate and regular rhythm. Heart sounds: Normal heart sounds. No murmur heard. No friction rub. No gallop. Pulmonary: Effort: Pulmonary effort is normal. No respiratory distress. Breath sounds: Normal breath sounds. Musculoskeletal: Right lower leg: Edema present. Left lower leg: Edema present. Comments: Mild nonpitting stasis edema involving bilateral ankles Skin: General: Skin is warm and dry. Findings: Erythema and rash present. Comments: Several centimeter oval-shaped erythematous slightly raised pruritic nontender rash over the left lateral chest wall at the bra line, no vesiculation or scabbing noted, single less than 1 cm diameter erythematous pruritic skin lesion on the right forearm, and generally dry skin over her foreleg's bilaterally with few scattered pinpoint erythematous pruritic lesions without currently vesiculation or pustules with generalized pruritus and dry skin Neurological: Mental Status: She is alert. Psychiatric: Mood and Affect: Mood normal. Procedures Results: Labs: No results found [...] Negative Negative Ketones, UA Negative Negative Specific Switchback 1.015 1.005 - 1.030 Blood, UA 3+ [...] to charly Result Value Ref Range Specific Switchback, UA 1.020 1.005 - 1.030 pH, UA [...] seen /lpf Bacteria, UA Few None seen/Few Imaging: No valid procedures specified. Assessment / Plan Assessment/Plan: Diagnoses and all orders for this visit: 1. Allergic contact dermatitis, unspecified trigger (Primary) Assessment & Plan: Patchy rash noted on her left chest wall, right arm, and bilateral mid to lower foreleg's. Clinically location pattern and symptoms of pruritus without pain, without vesiculation, making diagnosis ofshingles unlikely. Likely infectious etiology given lack of systemic symptoms and clinical appearance. Likely more related to contact dermatitis especially in conjunction with patient recently havingbeen weed eating. Treat with prednisone along with topical triamcinolone cream and moisturizing lotion. Advise if not improving over the next week or for any acute worsening of symptoms in the interim Orders: - predniSONE (DELTASONE) 20 MG tablet; Take 1 tablet by mouth 2 (Two) Times a Day for 5 days. Dispense: 10 tablet; Refill: 0 - triamcinolone (KENALOG) 0.1 % cream; Apply 1 Application topically to the appropriate area as directed 2 (Two) Times a Day. Dispense: 60 g; Refill: 1 2. Primary hypertension Assessment & Plan: Borderline control acutely, excellent control chronically taking amlodipine 10 mg daily. Given development of stasis edema likely related to the amlodipine plus warm weather, will reduce amlodipine down to 0.5 tablets of 5 mg daily, evaluating both her edema and blood pressure control when she comes in for a follow-up visit in several weeks. Advise if concerns in the interim. 3. Localized edema Assessment & Plan: Several days of increasing dependent edema, likely secondary to amlodipine therapy. Reduce amlodipine from 10 mg down to 5 mg at 0.5 tablets daily. Assess clinical response when she follows up in thenext couple weeks. Vaccine Counseling: Follow Up: Return in about 2 weeks (around 07/05/2025) for Next scheduled follow up. At [facility], we believe that sharing information builds trust and better relationships. You are receiving this note because you recently visited [facility]. It is possible you will see health [...] Description 10/09/2025 9:00 AM EST Office Visit [facility] [address] [place] [address] [place] [id number] Dinesh Madrigal MD [address] [place] [id number] documented as of this encounter Visit Diagnoses Diagnosis Allergic contact dermatitis, unspecified trigger- Primary Primary hypertension Unspecified essential hypertension Localized edema Edema documented in this encounter Care Teams Rack Loader Relationship Specialty Start Date End Date Dinesh Madrigal MD [address] [place] [id number] PCP - General Internal Medicine 09/05/24 documented as of this encounter
--- OUTSIDE RECORDS SUMMARY | 2025-07-10 10:15 | XMS_ITS | Encounter Summary ---
Author Organization [facility] Address [address] [place] [address] Care Team Providers Care Internal Revenue Agent Name Role Phone Dinesh Madrigal MD Primary Care Provider [phone] Reason for Visit * Reason Comments follow up BP Encounter Details Date Type Department Care Team (Late st Contact Info) Description 07/10/2025 10:15 AM EDT Office Visit [facility] [address] [place] [address] [place] [phone] Dinesh Madrigal MD [address] [place] [address] [place] [address] Mild obesity (Primary Dx); Primary hypertension; Localized edema Social [...] Sign Reading Time Taken Comments Blood Pressure 128/86 07/10/2025 10:09 AM EDT Pulse 102 07/10/2025 10:09 AM EDT Temperature 36.8 C (98.2 F) 07/10/2025 10:09 AM EDT Respiratory Rate - - Oxygen Saturation 98% 07/10/2025 10:09 AM EDT Inhaled Oxygen Concentration - - Weight 84 kg (185 lb 3.2 oz) 07/10/2025 10:09 AM EDT Height 157.5 cm (5' 2 ) 07/10/2025 10:09 AM EDT Body Mass Index 33.87 07/10/2025 10:09 AM EDT documented in this encounter Progress Notes * Dinesh Madrigal MD - 07/10/2025 11:44 AM EDTAssociated Problem(s): Primary hypertension Her blood pressure readings have been within the normal range, with today's reading at 120/86. The current regimen of amlodipine 5 mg will be maintained. If her blood pressure consistently falls below 100, she is advised to halve the dose of amlodipine 5 mg. * Dinesh Madrigal MD - 07/10/2025 11:44 AM EDTAssociated Problem(s): Mild obesity She has experienced a slight weight gain of approximately 1 pounds over a period of 6 weeks while on phentermine 37.5 mg daily, not noting any advantage in appetite suppression versus the previous 15mg daily. The dosage of phentermine will be reduced to 15 mg. A combination therapy with Topamax will be initiated, starting with a low dose of 12.5 mg for the first few tablets, then increasing to 25 mg if tolerated, monitoring for any recurrence of irritability noted with previous prescription ofTopamax earlier this year. This regimen will be followed for a duration of 3 months, after which her progress will be reassessed. We did also discussed concept of prescribing generic G0 0.1?? GIP agonist depending on clinical response to the phentermine Topamax combination. She is encouraged to continue her efforts in maintaining a healthy diet and regular exercise. If she experiences any adverseeffects from the medication, she should discontinue its use and inform the clinic immediately. * Dinesh Madrigal MD - 07/10/2025 11:43 AM EDTAssociated Problem(s): Localized edema Lower extremity dependent edema resolved with reduction in amlodipine from 10 mg to 5 mg daily * Dinesh Madrigal MD - 07/10/2025 10:15 AM EDT Images from the original note were not included. Answers submitted by the patient for this visit: Problem not listed (Submitted on 07/06/2025) Chief Complaint: Other medical problem Reason for appointment: follow up anorexia: No joint pain: No change in stool: No headaches: No joint swelling: No vertigo: No visual change: No Follow Up Office Visit Date: 07/10/2025 Patient Name: Rhona Noble : 1985 Chief Complaint: Chief Complaint Patient presents with follow up BP History of Present Illness: Rhona Noble is a 40 y.o. female who is here today for follow-up visit of her blood pressure and weight. History of Present Illness The patient is a female who presents for a follow-up visit. She reports that the reduction in her amlodipine dosage from 10 mg to 5 mg has alleviated her edema. Her blood pressure readings at home have been stable, with the highest recorded being 118/82 and the lowest in the range of 110/70s. However, she notes an elevated heart rate, which can reach up to 120 beats per minute, and believes this increase is due to her phentermine medication. She has observed fluctuations in her weight. Despite maintaining a healthy diet rich in vegetables and protein, and engaging in regular physical activity such as walking at least 1 mile three days a week, she has not noticed any significant changes in her appetite or weight despite taking phentermine 37.5 mg daily. She avoids sugary drinks and consumes green tea, diet soda, and water. 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 She has previously taken Topamax for headaches but discontinued secondary to some irritability noted by family members but notnoted by patient. PAST MEDICAL HISTORY: - Hypertension - Headaches MEDICATIONS CURRENT MEDS: Amlodipine 5 mg Oral Daily Phentermine 30 mg Oral Daily IMMUNIZATIONS She is up to date with her influenza vaccine. Subjective Review of Systems: Review of Systems I have reviewed the patients family history, social history, past medical history, past surgical history and have updated it as appropriate. Medications: Current Outpatient Medications: amitriptyline (ELAVIL) 25 MG tablet, Take 1 tablet by mouth Every Night. For prevention of migraines, Disp: 90 tablet, Rfl: 3 SUMAtriptan (Imitrex) 100 MG tablet, Take one tablet at onset of headache. May repeat dose one timein 2 hours if headache not relieved., Disp: 15 tablet, Rfl: 1 triamcinolone (KENALOG) 0.1 % cream, Apply 1 Application topically to the appropriate area as directed 2 (Two) Times a Day., Disp: 60 g, Rfl: 1 amLODIPine (NORVASC) 5 MG tablet, Take 1 tablet by mouth Daily., Disp: 90 tablet, Rfl: 1 phentermine 15 MG capsule, Take 1 capsule by mouth Every Morning., Disp: 30 capsule, Rfl: 2 topiramate (Topamax) 25 MG tablet, 0.5 tablets once daily x 6 days, then increase to 1 tablet daily, Disp: 30 tablet, Rfl: 2 Allergies: Allergies Allergen Reactions Penicillins Rash Cefdinir Nausea And Vomiting and Palpitations Objective Physical Exam: Please see above Vital Signs: Vitals: 07/10/25 1009 BP: 128/86 BP Location: Left arm Patient Position: Sitting Cuff Size: Adult Pulse: 102 Temp: 98.2 ??F (36.8 ??C) TempSrc: Temporal SpO2: 98% Weight: 84 kg (185 lb 3.2 oz) Height: 157.5 cm (62 ) Body mass index is 33.87 kg/m??. Physical Exam Constitutional: General: She is not in acute distress. Appearance: Normal appearance. She is obese. She is not ill-appearing. Comments: Pleasant, healthy, NAD, BMI 33 point representing 1 pound weight gain in the last month Cardiovascular: Rate and Rhythm: Normal rate and regular rhythm. Heart sounds: Normal heart sounds. No murmur heard. No friction rub. No gallop. Pulmonary: Effort: Pulmonary effort is normal. No respiratory distress. Breath sounds: Normal breath sounds. Musculoskeletal: Right lower leg: No edema. Left lower leg: No edema. Neurological: Mental Status: She is alert. Psychiatric: [...] Negative Negative Ketones, UA Negative Negative Specific [place] 1.015 1.005 - 1.030 Blood, UA 3+ [...] to charly Result Value Ref Range Specific [place], UA 1.020 1.005 - 1.030 pH, UA [...] and all orders for this visit: 1. Mild obesity (Primary) Assessment & Plan: She has experienced a slight weight gain of approximately 1 pounds over a period of 6 weeks while on phentermine 37.5 mg daily, not noting any advantage in appetite suppression versus the previous 15mg daily. The dosage of phentermine will be reduced to 15 mg. A combination therapy with Topamax will be initiated, starting with a low dose of 12.5 mg for the first few tablets, then increasing to 25 mg if tolerated, monitoring for any recurrence of irritability noted with previous prescription ofTopamax earlier this year. This regimen will be followed for a duration of 3 months, after which her progress will be reassessed. We did also discussed concept of prescribing generic G0 0.1?? GIP agonist depending on clinical response to the phentermine Topamax combination. She is encouraged to continue her efforts in maintaining a healthy diet and regular exercise. If she experiences any adverseeffects from the medication, she should discontinue its use and inform the clinic immediately. Orders: - topiramate (Topamax) 25 MG tablet; 0.5 tablets once daily x 6 days, then increase to 1 tablet daily Dispense: 30 tablet; Refill: 2 - phentermine 15 MG capsule; Take 1 capsule by mouth Every Morning. Dispense: 30 capsule; Refill: 2 2. Primary hypertension Assessment & Plan: Her blood pressure readings have been within the normal range, with today's reading at 120/86. The current regimen of amlodipine 5 mg will be maintained. If her blood pressure consistently falls below 100, she is advised to halve the dose of amlodipine 5 mg. Orders: - amLODIPine (NORVASC) 5 MG tablet; Take 1 tablet by mouth Daily. Dispense: 90 tablet; Refill: 1 3. Localized edema Assessment & Plan: Lower extremity dependent edema resolved with reduction in amlodipine from 10 mg to 5 mg daily Assessment & Plan 1. Hypertension. Her blood pressure readings have been within the normal range, with today's reading at 120/86. The current regimen of amlodipine 5 mg will be maintained. If her blood pressure consistently falls below 100, she is advised to halve the dose of amlodipine 5 mg. 2. Weight management. She has experienced a slight weight gain of approximately 1 pounds over a period of 6 weeks while on phentermine 37.5 mg daily, not noting any advantage in appetite suppression versus the previous 15mg daily. The dosage of phentermine will be reduced to 15 mg. A combination therapy with Topamax will be initiated, starting with a low dose of 12.5 mg for the first few tablets, then increasing to 25 mg if tolerated, monitoring for any recurrence of irritability noted with previous prescription ofTopamax earlier this year. This regimen will be followed for a duration of 3 months, after which her progress will be reassessed. We did also discussed concept of prescribing generic G0 0.1?? GIP agonist depending on clinical response to the phentermine Topamax combination. She is encouraged to continue her efforts in maintaining a healthy diet and regular exercise. If she experiences any adverseeffects from the medication, she should discontinue its use and inform the clinic immediately. 3. Localized edema. Lower extremity dependent edema resolved with reduction in amlodipine from 10 mg to 5 mg daily Follow-up A follow-up visit is scheduled in 3 months. Vaccine Counseling: Follow Up: Return in about 3 months (around 10/09/2025) for Recheck. Patient or patient account executive sales representative verbalized consent for the use of Ambient Listening during the visit with Dinesh Madrigal MD for chart documentation. 07/10/2025 11:41 EDT At [facility], we believe that sharing information builds trust and better relationships. You are receiving this note because you recently visited [facility]. It is possible you will see health information before a provider has talked with you about it. This kind of information can be easy to misunderstand. To help you fully understand what it means for your health, we urge you to discussthis note with your provider. Dinesh Madrigal MD [facility] Catherine documented in this encounter Plan of Treatment Upcoming Encounters Date Type Department Care Team (Late st Contact Info) Description 10/09/2025 9:00 AM EST Office Visit [facility] [address] [place] [address] [place] [phone] Dinesh Madrigal MD [address] [place] [address] [place] [id number] documented as of this encounter Visit Diagnoses Diagnosis Mild obesity- Primary Primary hypertension Unspecified essential hypertension Localized edema Edema documented in this encounter Care Teams Internal Revenue Agent Relationship Specialty Start Date End Date Dinesh Madrigal MD [address] [place] [address] PCP - General Internal Medicine 09/05/24 documented as of this encounter
--- OUTSIDE RECORDS SUMMARY | 2025-07-19 13:55 | XMS_ITS | Clinical Summary ---
[facility] [address] [place] [address] Care Team Providers Care Can[employer] Goods Maker Name Role Phone Dinesh Madrigal MD Primary Care Provider [phone] Allergies Active Allergy Reactions Criticality Noted Date Comments Cefdinir Nausea And Vomiting,Palpitations Low 12/2024 Penicillins Rash Medium 09/05/2024 Medications SUMAtriptan (Imitrex) 100 MG tabletIndicatio ns:Chronic migraine without aura without status migrainosus, not intractable Take one tablet at onset of headache. May repeat dose one time in 2 hours if headache not relieved. 15 tablet 1 02/08/20 25 Active amitriptyline (ELAVIL) 25 MG tabletIndicatio ns:Chronic migraine without aura without status migrainosus, not intractable Take 1 tablet by mouth Every Night. For prevention of migraines 90 tablet 3 06/08/20 25 Active triamcinolone (KENALOG) 0.1 % creamIndication s:Allergic contact dermatitis, unspecified trigger Apply 1 Application topically to the appropriate area as directed 2 (Two) Times a Day. 60 g 1 06/21/20 25 Active topiramate (Topamax) 25 MG tabletIndicatio ns:Mild obesity 0.5 tablets once daily x 6 days, then increase to 1 tablet daily 30 tablet 2 07/10/20 25 Active phentermine 15 MG capsuleIndicati ons:Mild obesity Take 1 capsule by mouth Every Morning. 30 capsule 2 07/10/20 25 Active amLODIPine (NORVASC) 5 MG tabletIndicatio ns:Primary hypertension Take 1 tablet by mouth Daily. 90 tablet 1 07/10/20 Active amLODIPine (NORVASC) 10 MG tablet Take 0.5 tablets by mouth Daily. Discontinued phentermine 37.5 MG capsuleIndicati ons:Mild obesity Take 1 capsule by mouth Every Morning. 30 capsule 06/08/20 Discontinued predniSONE (DELTASONE) 20 MG tabletIndicatio ns:Allergic contact dermatitis, unspecified trigger Take 1 tablet by mouth 2 (Two) Times a Day for 5 days. 10 tablet 06/21/20 Active Problems Problem Noted Date Diagnosed Date Allergic contact dermatitis 06/21/2025 Assessment & Plan (06/21/2025 8:59 AM EDT): Patchy rash noted on her left chest wall, right arm, and bilateral mid to lower foreleg's. Clinically location pattern and symptoms of pruritus without pain, without vesiculation, making diagnosis of shingles unlikely. Likely infectious etiology given lack of systemic symptoms and clinical appearance. Likely more related to contact dermatitis especially in conjunction with patient recently having been weed eating. Treat with prednisone along with topical triamcinolone cream and moisturizing lotion. Advise if not improving over the next week or for any acute worsening of symptoms in the interim Localized edema 06/21/2025 Assessment & Plan (07/10/2025 11:43 AM EDT): Lower extremity dependent edema resolved with reduction in amlodipine from 10 mg to 5 mg daily Assessment & Plan (06/21/2025 9:00 AM EDT): Several days of increasing dependent edema, likely secondary to amlodipine therapy. Reduce amlodipine from 10 mg down to 5 mg at 0.5 tablets daily. Assess clinical response when she follows up in the next couple weeks. 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 She has not had any obvious awareness of any seizure activity, no she does occasionally having a self-awareness of a brief fixation on an object lasting several seconds, occurring once or twice monthly, but again aware that these episodes are occurring. Will refer to neurology for further opinion regarding these episodes, as well as her history of trauma and associated imaging revealing encephalomalacia, and related to her migraine headaches Dental abscess 02/07/2025 Assessment & Plan (02/07/2025 1:14 PM EDT): Recent post extraction of a right maxillary incisor. Has significant postextraction erythema with gum retraction and tenderness. Treat with clindamycin concomitantly with probiotics, (noted allergy to penicillin/Augmentin), saline gargles, advised to contact the dentist for a follow-up Acquired right foot drop 12/27/2024 Assessment & Plan (05/09/2025 9:48 AM EDT): Childhood trauma with intracranial injury, causing a secondary right-sided weakness more prominently in her foot with a mild right foot drop. Has a secondary antalgic gait. Clinically very stable since her original injury at age 1 or 2. Assessment & Plan (12/27/2024 7:06 PM EST): Reports traumatic brain injury at age 1 with secondary right-sided weakness, most prominently having a residual weakness to dorsiflexion of her right foot with secondary foot drop and antalgic gait, subtle weakness of her right arm. Mild obesity 12/27/2024 Assessment & Plan (07/10/2025 11:44 AM EDT): She has experienced a slight weight gain of approximately 1 pounds over a period of 6 weeks while on phentermine 37.5 mg daily, not noting any advantage in appetite suppression versus the previous 15 mg daily. The dosage of phentermine will be reduced to 15 mg. A combination therapy with Topamax will be initiated, starting with a low dose of 12.5 mg for the first few tablets, then increasing to 25 mg if tolerated, monitoring for any recurrence of irritability noted with previous prescription of Topamax earlier this year. This regimen will be followed for a duration of 3 months, after which her progress will be reassessed. We did also discussed concept of prescribing generic G0 0.1 GIP agonist depending on clinical response to the phentermine Topamax combination. She is encouraged to continue her efforts in maintaining a healthy diet and regular exercise. If she experiences any adverse effects from the medication, she should discontinue its use and inform the clinic immediately. Assessment & Plan (06/08/2025 12:59 PM EDT): Longstanding struggles with obesity, having been prescribed [...] some nonspecific irritability. Follow-up in 1 month. Assessment & Plan (05/09/2025 9:48 AM EDT): Patient has had longstanding struggles with mild obesity, interested in medication assistance. She has improved her diet lately and is intending to reinitiate regular physical activity. We did discuss medication options including GLP-1 agonist, with patient to check into eligibility knowing there is some family member of undefined thyroid cancer in an uncle, as well as eligibility regarding insurance coverage. In the interim we will initiate trial of phentermine 15 mg daily with discussion regarding potential side effects, and reassess clinically in 1 month, with patient to advise if any concerns in the interim Assessment & Plan (02/07/2025 1:11 PM EDT): Prescribed Topamax 6 weeks ago for purpose of migraine suppression and benefiting efforts at weight loss. Intolerant of the Topamax given mood irritability, despite that having lost a further 2 pounds weight in the last 6 weeks. Plan continue efforts at weight loss with lifestyle change, reassessing clinically at follow-up visit Assessment & Plan (12/27/2024 7:02 PM EST): Patient advised regarding need for regular physical activity as well as healthy diet rich in fruits and vegetables, avoiding junk foods fast foods and sweetened drinks and drinking primarily water. Also prescribing Topamax titrating to 50 mg nightly for added benefit of weight loss as well as concomitant treatment of her migraines. Abnormal thyroid function test 12/27/2024 Assessment & Plan (12/27/2024 7:04 PM EST): Normal TSH with elevated total T4 at [facility] 08/2024. Repeat TFTs including TSH and free T4 Dyslipidemia 12/27/2024 Assessment & Plan (12/27/2024 7:02 PM EST): Update lipid profile. Not currently on cholesterol-lowering medication Primary hypertension 12/27/2024 Assessment & Plan (07/10/2025 11:44 AM EDT): Her blood pressure readings have been within the normal range, with today's reading at 120/86. The current regimen of amlodipine 5 mg will be maintained. If her blood pressure consistently falls below 100, she is advised to halve the dose of amlodipine 5 mg. Assessment & Plan (06/21/2025 8:58 AM EDT): Borderline control acutely, excellent control chronically taking amlodipine 10 mg daily. Given development of stasis edema likely related to the amlodipine plus warm weather, will reduce amlodipine down to 0.5 tablets of 5 mg daily, evaluating both her edema and blood pressure control when she comes in for a follow-up visit in several weeks. Advise if concerns in the interim. Assessment & Plan (06/08/2025 12:57 PM EDT): Satisfactory blood pressure control acutely as well as by history chronically having had an increase in amitriptyline within the last month by cardiology from 5 mg to 10 mg daily, noting patient takes in split doses of 5 mg twice daily. Continue current regimen with monitoring Assessment & Plan (05/09/2025 9:47 AM EDT): Satisfactory blood pressure control acutely as well as by history chronically taking amlodipine 5 mg daily. She had been prescribed course of metoprolol XL 50 mg daily for migraine prophylaxis which she discontinued after a single dose given precipitous drop in her blood pressure with systolics in the 90s Assessment & Plan (02/07/2025 1:11 PM EDT): Satisfactory blood pressure control acutely as well as chronically taking amlodipine 5 mg daily monotherapy for hypertension. Plan adding metoprolol XL 50 mg daily for benefit of migraine suppression, with patient advised to monitor pulse rate and blood pressures closely. 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 Continue current regimen Encounter for general adult medical examination with abnormal findings 12/27/2024 Assessment & Plan (12/27/2024 7:06 PM EST): 39-year-old female presenting for complete physical with specific health issues being addressed as detailed below, health maintenance includes pending referral for Pap smear, initial mammogram, Tdap administered today, EKG not performed today given recent evaluation by cardiology, and update limited labs given at extensive lab testing at [facility] in 08/2024. Follow-up in 6 weeks to assess clinical response regarding migraine headaches and her obesity to Topamax. Chronic migraine without aur a without status migrainosus, not intractable 12/27/2024 Assessment & Plan (06/08/2025 1:00 PM EDT): Longest chronic daily headaches, typically flaring up [...] history of TBI as well as headaches Assessment & Plan (05/09/2025 9:51 AM EDT): Chronic daily headaches, with more significant flares on a monthly basis, present consistently for 5-6 years but even present more remotely to a lesser degree. Most consistent with a migraine syndrome. Approximately several months ago was initiated on Topamax for purposes of benefiting migraine headaches as well as augmenting efforts at weight loss. Unfortunately she experienced mood irritability from the Topamax and this was self discontinued. 3 months ago was initiated on trial metoprolol XL 50 mg daily which she discontinued after 1 dose given drop in her systolic pressure into the 90s. Still having 2 weeks of a daily dull headache and prior to that typically 4-5 migraine headaches monthly. Severity. She did present to the emergency room 7 days ago with a more severe headache with nausea, CT scan of her head at that time revealing evidence of her previous left-sided craniotomy encephalomalacia. Plan initiate trial of amitriptyline 25 mg to take 1 tablet nightly for migraine prophylaxis side effect profile potential discussed, with plan to follow-up in 1 month for clinical review. She will still take her Imitrex along with NSAIDs as needed acutely. Refer to neurology given constellation of findings regarding migraine headache as well as her CT imaging, for second opinion regarding management. Advise if concerns in the interim. Assessment & Plan (02/07/2025 1:13 PM EDT): Chronic daily headaches, with more significant flares on a monthly basis, present consistently for 5-6 years but even present more remotely to a lesser degree. Most consistent with a migraine syndrome. 6 weeks ago initiated on Topamax for purposes of benefiting migraine headaches as well as augmenting efforts at weight loss. Unfortunately she did not Topamax given mood irritability and this was self discontinued approximately 1 month ago. She is now having migraine headaches on a weekly basis but still quite severe. Prescribed Imitrex acutely for migraines conjunction with Tylenol or Advil, and initiate trial of metoprolol XL 50 mg daily for migraine suppression, reassessing clinical response in the next 6 weeks. Assessment & Plan (06/21/2025 9:15 AM EDT): Chronic daily headaches, with more significant flares [...] weeks, advising if problems in the interim. Need for hepatitis C screening test 12/27/2024 Papanicolaou smear for cervical cancer screening 12/27/2024 Assessment & Plan (12/27/2024 7:04 PM EST): Patient reports last Pap smear approximately 4 years ago and normal, prior remote abnormal Pap smear. Referring to gynecology at [facility] for women's health evaluation. Encounter for screening mamm ogram for malignant neoplasm of breast 12/27/2024 Assessment & Plan (12/27/2024 7:05 PM EST): Refer for her initial screening mammogram given age 39, average risk Vitamin D deficiency 12/27/2024 Assessment & Plan (12/27/2024 7:04 PM EST): Not currently on supplement. Update level. Ex-cigarette smoker 12/27/2024 Overview (12/27/2024): 0.5 pack/day x 20 years, abstaining since 2022 Assessment & Plan (12/27/2024 7:08 PM EST): [id number] history of cigarette smoking abstaining since 2022. Will not require low-dose screening chest CT based upon her low pack-years Anemia associated with acute blood loss 09/05/20 24 Delivery by elective section 09/05/2024 Gestational hypertension without significant pro teinuria 09/05/2024 History of LEEP (loop electr osurgical excision procedure) of cervix complicating 09/05/2024 History of traumatic brain injury 09/05/2024 Assessment & Plan (06/08/2025 12:55 PM EDT): History of traumatic brain injury at age [...] to neurology for general evaluation. Clinically stable. Assessment & Plan (05/09/2025 9:52 AM EDT): Reports traumatic brain injury at age 2-3 with secondary right-sided weakness, most prominently having a residual weakness to dorsiflexion of her right foot with secondary foot drop and antalgic gait, subtle weakness of her right arm yMron had a single posttraumatic seizure. Recent CT scan revealed evidence of a craniotomy with left-sided encephalomalacia. Will refer to neurology given her radiographic findings and history for second opinion regarding any management changes recommended. Assessment & Plan (12/27/2024 7:06 PM EST): Reports traumatic brain injury at age 1 with secondary right-sided weakness, most prominently having a residual weakness to dorsiflexion of her right foot with secondary foot drop and antalgic gait, subtle weakness of her right arm. Pap smear of cervix with ASCUS, cannot exclude H GSIL 09/05/2024 Penicillin allergy 09/05/2024 Tobacco abuse 09/05/2024 Status post tubal ligation 09/05/2024 Asymptomatic microscopic hematuria 09/05/2024 Assessment & Plan (09/05/2024 1:04 PM EST): Patient presented 5 days ago with acute flank/thoracic pain associate with some microscopic hematuria, additional evaluated the [facility] transferred to [facility], CT initially of the abdomen pelvis without contrast negative, discharged home on Omnicef given potential for UTI, Omnicef switched to Cipro given possible allergic response, ultimately culture being negative for infection revealing contamination. Microscopic UA revealed 3-5 RBCs. [id number] urinalysis today indicating some trace hematuria otherwise normal. Differential unlikely representing stone though may have occultly passed, no evidence of UTI, CT revealing no evidence of overt mass lesion along the urological tract. Assuming her repeat UA is abnormal, we will then refer to urology for further evaluation including anticipated cystoscopy. Elevated blood pressure read ing without diagnosis of hypertension 09/05/2024 Assessment & Plan (09/05/2024 1:03 PM EST): Patient seen in the emergency room x 2 with subsequent overnight admission presenting with combination of flank pain, microscopic hematuria, and elevated blood pressures blood pressures in conjunction with having had some flushing sensation with palpitations. Her overnight hospitalization was unremarkable with normalization of blood pressures, discharged on carvedilol but not taking since discharge 2 days ago given completely normal blood pressures in the 110s to 120s over 70s. She has not had any further flushing episodes. She is completing a 24-hour urine evaluation for metanephrines to rule out pheochromocytoma, noting CT of abdomen pelvis with and without contrast while hospitalized was normal. Assuming the evaluation for free pheochromocytoma is negative, and assuming her blood pressures remain normal, no further related workup will be pursued at this time, assuming that her elevated blood pressure was likely related to pain from her flank pain Abnormal EKG 09/05/2024 Assessment & Plan (09/05/2024 1:06 PM EST): Patient admitted to [facility] 3 days ago given elevated blood pressure with some flank pain, completing evaluation for pheochromocytoma with for metanephrines pending. Blood pressure has been normal subsequently without any antihypertensives since discharge for last 2 days, did have note of asymptomatic inferolateral T wave changes, negative troponins. Will refer to cardiology for further evaluation noting she does have some cardiovascular risk factors including being ex-cigarette smoker having just been abstaining now for the last 2 years. COVID-19 vaccine administered 09/05/2024 Acute left flank pain 09/05/2024 Assessment & Plan (09/05/2024 1:07 PM EST): Acute left flank pain present for last 5 days overall improving, associate with microscopic hematuria, culture negative, CT imaging revealing no evidence of stone or renal mass examination revealing some muscular tenderness, suspect most likely musculoskeletal in nature with clinical improvement. Observation recommended at this time, with her microscopic hematuria being worked up further. Encounters Date Type Department Care Team Description 07/10/2025 10:15 AM EDT Office Visit [facility] [address] [place] [address] [place] [address] Dinesh Madrigal MD Mild obesity (Primary Dx); Primary hypertension; Localized edema 07/10/2025 Travel 06/21/2025 8:30 AM EDT Office Visit [facility] [address] [place] [address] [place] [phone] Dinesh Madrigal MD Allergic contact dermatitis, unspecified trigger (Primary Dx); Primary hypertension; Localized edema 06/21/2025 Travel 06/19/2025 Telephone [facility] [address] [place] [address] [place] [phone] [facility] 06/08/2025 9:15 AM EDT Office Visit [facility] [address] [place] [phone] Dinesh Madrigal MD Chronic migraine without aura without status migrainosus, not intractable (Primary Dx); History of traumatic brain injury; Mild obesity; Primary hypertension 06/08/2025 Travel 05/09/2025 8:45 AM EDT Office Visit [facility] [address] [place] [phone] Dinesh Madrigal MD Chronic migraine without aura without status migrainosus, not intractable (Primary Dx); History of traumatic brain injury; Acquired right foot drop; History of seizure; Primary hypertension; Mild obesity 05/09/2025 Travel from Last 3 Months Immunizations Immunization Administration Dates Next Due COVID-19 (PFIZER) 12YRS+ (COMIRNATY) 09/05/2024 Fluzone (or Fluarix & Flulaval for VFC) >6mos Influenza Seasonal Injectable 08/19/2018 Influenza, Unspecified 07/25/2024 Tdap 12/27/2024 Family History Medical History Relation Name Comments Cancer Father Jourdan Sarkar Lung and skin Arthritis Mother Nimco Sarkar Relation Name Status Comments Father Jourdan Sarkar Mother Nimco Sarkar Social History Tobacco Use Types Packs/Day Years [...] Orientation Straight 12/26/2024 5: 52 PM EST Last Filed Vital Signs Vital Sign Reading Time Taken Comments Blood Pressure 128/86 07/10/2025 10:09 AM EDT Pulse 102 07/10/2025 10:09 AM EDT Temperature 36.8 C (98.2 F) 07/10/2025 10:09 AM EDT Respiratory Rate 18 09/05/2024 10:50 AM EST Oxygen Saturation 98% 07/10/2025 10:09 AM EDT Inhaled Oxygen Concentration - - Weight 84 kg (185 lb 3.2 oz) 07/10/2025 10:09 AM EDT Height 157.5 cm (5' 2 ) 07/10/2025 10:09 AM EDT Body Mass Index 33.87 07/10/2025 10:09 AM EDT Plan of Treatment Upcoming Encounters Date Type Department Care Team (Late st Contact Info) Description 10/09/2025 9:00 AM EST Office Visit [facility] [address] [place] [address] [place] [phone] Dinesh Madrigal MD [address] [place] [address] [place] [id number] Health Maintenance Due Date Last Done Comments Annual Gynecologic Pelvic an d Breast Exam 1985 HEPATITIS C SCREENING 09/01/2024 INFLUENZA VACCINE 05/26/2025 07/25/2024, 08/09/2020, 08/19/2018 ANNUAL PHYSICAL 12/27/2025 12/27/2024 MAMMOGRAM 01/19/2027 01/25/2025, 01/19/2025, 01/09/2025 PAP SMEAR 02/29/2028 02/28/2025 TDAP/TD VACCINES (2 - Td or Tdap) 12/27/2034 12/27/2024 Pneumococcal Vaccine 0-49 Aged Out No longer eligible based on patient's age to complete this topic Procedures Procedure Name Priority Date/Time Associated Diagnosis Comments SCANNED - LABS 05/02/2025 SCANNED - LABS 05/02/2025 SCANNED - IMAGING 05/02/2025 MAMMO DIAGNOSTIC DIGITAL TOMOSYNTHESIS RIGHT W CAD Routine 01/19/2025 Abnormality of right breast on screening mammogram from Last 3 Months or Most Recently Relevant to Health Maintenance Results * IMAGING SCANNED (05/02/2025) Anatomical Region Laterality Modality Radiographic Nemo ging us Dinesh Madrigal MD IMG DIAGNOSTIC IMAGING ORDERAB LES Final Result * LABS SCANNED (05/02/2025) Only the most recent of2 resultswithin the time period is included. us Dinesh Madrigal MD LAB BLOOD ORDERABLES Final Res ult * Mammo Diagnostic Digital Tomosynthesis Right With CAD (01/19/2025) Anatomical Region Laterality Modality Breast Right Mammography us Dinesh Madrigal MD IMG MAMMOGRAPHY ORDERABLES Fin al Result from Last 3 Months or Most Recently Relevant to Health Maintenance Insurance [facility] [place] [address] [facility] Care Teams [employer] Good[employer] Maker Relationship Specialty Start Date End Date Dinesh Madrigal MD [address] [place] [address] [place] [id number] PCP - General Internal Medicine 09/05/24
--- OUTSIDE RECORDS SUMMARY | 2025-07-19 13:55 | XMS_ITS | Encounter Summary ---
Author Organization [facility] Address [address] [place] [address] Care Team Providers Care Bowling Alley Operator Name Role Phone Dinesh Madrigal MD Primary Care Provider [phone] Encounter Details Date Type Department Care Team (Latest Contact Info) Description 06/21/2025 Travel Social History Tobacco Use Types Packs/Day Years Used Date Smoking Tobacco: Former Cigarettes 0.5 15 0 10/26/2010 - 11/03/2022 Smokeless Tobacco: Never Alcohol Use Standard Drinks/Week Comments Yes 0 [...] PM EST documented as of this encounter Plan of Treatment Upcoming Encounters Date Type Department Care Team (Late st Contact Info) Description 10/09/2025 9:00 AM EST Office Visit [facility] [address] [place] [id number] Dinesh Madrigal MD [address] [place] [id number] documented as of this encounter Visit Diagnoses Not on filedocumented in this encounter Care Teams Bowling Alley Operator Relationship Specialty Start Date End Date Dinesh Madrigal MD [address] [place] [id number] PCP - General Internal Medicine 09/05/24 documented as of this encounter
--- OUTSIDE RECORDS SUMMARY | 2025-07-19 13:55 | XMS_ITS | Encounter Summary ---
Author Organization [facility] Address [address] [place] [address] Care Team Providers Care Tire And Tube Repairer Name Role Phone Dinesh Madrigal MD Primary Care Provider [phone] Encounter Details Date Type Department Care Team (Latest Contact Info) Description 07/10/2025 Travel Social History Tobacco Use Types Packs/Day [...] Description 10/09/2025 9:00 AM EST Office Visit [facility] [address] [place] [phone] Dinesh Madrigal MD [address] [place] [address] documented as of this encounter Visit Diagnoses Not on filedocumented in this encounter Care Teams Tire And Tube Repairer Relationship Specialty Start Date End Date Dinesh Madrigal MD [address] [place] [id number] PCP - General Internal Medicine 09/05/24 documented as of this encounter
--- OUTSIDE RECORDS SUMMARY | 2025-07-19 13:55 | XMS_ITS | Encounter Summary ---
Author Organization [facility] Address [address] [place] [address] Care Team Providers Care Shirt Marker Name Role Phone Dinesh Wahl MD Primary Care Provider [phone] Reason for Visit * Reason Onset Date Comments DR [facility] - [facility] 06/19/2025 Encounter Details Date Type Department Care Team (Late st Contact Info) Description 06/19/2025 Telephone [facility] [address] [place] [address] [place] [address] Dinesh Wahl MD [address] [place] [address] [place] [address] DR [facility] - [facility] Social History Tobacco Use Types Packs/Day Years [...] PM EST documented as of this encounter Miscellaneous Notes * Telephone Encounter - Brianna Eric Dagoberto - 06/19/2025 4:01 PM EDT I have called with no answer. I have left her a vm regarding this. I have advised that she go to the ER to be evaluated due to it being late in the afternoon and Dr. Montiel being booked. TF * Telephone Encounter - Jamal Mayorga RegSched Rep - 06/19/2025 2:56 PM EDT Caller: Rhona Noble Relationship to patient: Self Best call back number: [phone] Chief complaint: RASH BELOW LEFT SHOULDERBLADE, TINGLING IN LEFT ARM AND LEFT HAND FINGERS Patient directed to call 911 or go to their nearest emergency room. Patient verbalized understanding: [x] Yes [] No If no, why? Additional notes: PATIENT STATES THAT THEY HAVE BEEN EXPERIENCING A TINGLING SENSATION AND NUMBNESSIN THEIR LEFT ARM AND LEFT HAND FINGERS PLEASE BE ADVISED documented in this encounter Plan of Treatment Upcoming Encounters Date Type Department Care Team (Late st Contact Info) Description 10/09/2025 9:00 AM EST Office Visit [facility] [address] [place] [phone] Dinesh Wahl MD [address] [place] [address] [place] [id number] documented as of this encounter Visit Diagnoses Not on filedocumented in this encounter Care Teams Shirt Marker Relationship Specialty Start Date End Date Dinesh Wahl [facility] [id number] PCP - General Internal Medicine 09/05/24 documented as of this encounter
--- OUTSIDE RECORDS SUMMARY | 2025-07-19 13:55 | XMS_ITS | Encounter Summary ---
Author Organization [facility] Address [address] [place] [address] Care Team Providers Care City Collector Name Role Phone Dinesh Madrigal MD Primary Care Provider [phone] Encounter Details Date Type Department Care Team (Latest Contact Info) Description 06/08/2025 Travel Social History Tobacco Use Types Packs/Day [...] Description 10/09/2025 9:00 AM EST Office Visit [facility] [address] [place] [phone] Dinesh Madrigal MD [address] [place] [address] documented as of this encounter Visit Diagnoses Not on filedocumented in this encounter Care Teams City Collector Relationship Specialty Start Date End Date Dinesh Madrigal MD [address] [place] [id number] PCP - General Internal Medicine 09/05/24 documented as of this encounter
--- NOTE | 2025-07-19 13:56 | MM_ITS ---
PROCEDURE INFORMATION: Exam: US Right Breast, Complete MG Right Diagnostic Breast Tomosynthesis Exam date and time: 07/19/2025 2:00 PM Age: 40 years old Clinical indication: Six-month follow-up for probably benign mass in the right breast at 12 o'clock, initiated 01/19/2025. TECHNIQUE: Imaging protocol: Complete ultrasound of all four quadrants of the right breast and the retroareolar regions, including ultrasound of the axilla when performed. Right Diagnostic tomosynthesis and 2D mammography including computer-aided detection (CAD) when performed. Unilateral or bilateral exam. COMPARISON: 1. MG MM DIG MAMM DX UNILAT RT CAD 01/19/2025 1:12 PM 2. MG MM DIG SCREENING MAMM BI W/CAD 01/09/2025 4:25 PM 3. MG MM DIG MAMM DX UNILAT RT CAD 07/19/2025 2:00 PM 4. US BREAST RT COMPLETE 01/19/2025 12:53 PM FINDINGS: MAMMOGRAPHY: Breast mammogram findings: Breast composition: The breasts are heterogeneously dense, which may obscure small masses. Mass: Stable oval 1.0 cm mass in the central breast middle 3rd, seen on CC frame 37. Architectural distortion: None. Calcifications: No suspicious calcifications. Asymmetric density: None. Skin thickening: None. Axillary adenopathy: None. ULTRASOUND: Breast ultrasound findings: Right sonography, all 4 quadrants and retroareolar demonstrate at 12 o'clock 4 cm from nipple shows an oval hypoechoic avascular mass measuring 0.7 x 0.7 x 0.9 cm, which measured 1.0 x 0.6 x 1.0 cm on 01/19/2025, again likely complicated cyst, which again likely corresponds to the mammographic finding. IMPRESSION: Stable mammographic mass and probably benign sonographic cyst on the right at 12 o'clock, since 01/19/2025, continued six-month follow-up mammography and sonography are recommended, when the patient returns for her bilateral mammogram in December 2025 unless otherwise clinically indicated. ASSESSMENT: BI-RADS Category 3: Probably benign.
== END 2025-07-19 23:59 | disposition home or self-care (01) ==
LOC: RAD 13:53
PROVIDERS: PCP Internal Medicine; Visit Provider Internal Medicine
DX: N63.15 Unspecified lump in the right breast, overlapping quadrants (principal); R92.331 Mammographic heterogeneous density, right breast; R92.8 Other abnormal and inconclusive findings on diagnostic imaging of breast
CPT/HCPCS: 76641; 77061; 77065; G0279